=== PATIENT | male | born 1945 | race Caucasian/White ===

== ENCOUNTER 2016-07-14 05:59 | Day surgery (SDC) | payer MEDICARE ==
[2016-07-09 15:28] VITALS: BMI 35.2
[~2016-07-14 05:59] MED LIST: LACTATED RINGERS 1,000 ML IV SCH
[2016-07-14 06:23] VITALS: RESP 16; TEMP 97.9
[2016-07-14] MEDS ORDERED: LIDOCAINE 1% 20 ML VIAL (10MG/ML) FOR IV START INTRADERMA ONE (06:29)
[2016-07-14] MEDS ORDERED: DEXAMETHASONE SOD PHOS (MDV) 100 MG/10 ML VIAL ONE (07:29)
[2016-07-14] MEDS ORDERED: MIDAZOLAM 2 MG/2 ML VIAL ONE (07:29)
[2016-07-14] MEDS ORDERED: fentaNYL (PF) 50 MCG/ML 2 ML AMP ONE (07:29)
[2016-07-14] MEDS ORDERED: IOHEXOL 180 MG/ML 1 ML ML ONE (07:29)
--- NOTE | 2016-07-14 07:49 | P.PCN ---
Date of Procedure: 07/14/16 Procedure(s) Performed: . PROCEDURE 1. Cervical epidural steroid injection under fluoroscopic guidance, C7-T1 2. Cervical epidurogram. PREOPERATIVE DIAGNOSIS: 1- Cervical herniated Disc Diseases 2- Cervical radiculopathy., 3-cervical spondylosis with cervical Facet arthropathy without myelopathy POSTOPERATIVE DIAGNOSIS: : 1- Cervical herniated Disc Diseases , 2- Cervical radiculopathy. 3-,cervical spondylosis with cervical Facet arthropathy without myelopathy ANESTHESIA: Local anesthesia with 1% lidocaine and IV sedation with Versed 2 mg and Fentanyl 50 mcg. EBL 0 PROCEDURE INDICATION: The patient with neck pain and radiculitis unresponsive to conservative treatment consents for procedure. PROCEDURE DESCRIPTION / TECHNIQUE: The patient was seen and identified in the preoperative area. Risks, benefits, complications, including but not limited to infections ,bleeding , allergic reactions to the medications ,and not complete pain releife, and alternatives were discussed with the patient, the patient agreed to proceed with the procedure and signed the consent. Patient was taken to the OR and time out was completed. The patient was placed in the prone position on the procedure table. A pillow was placed under the patients chest to increase the cervical interlaminar space. The cervical area was prepped and draped in the usual sterile fashion. Vital signs were closely monitored during the procedure. Conscious sedation was used during the procedure to decrease patients anxiety. Using anterior-posterior fluoroscopy, the C7-T1 interlaminar space was identified and the skin over this site was marked and then infiltrated with 1% lidocaine subcutaneously. Subsequently, a 20-gauge 3-1/2-inch Tuohy epidural needle was inserted and advanced toward the epidural space by means of the hanging-drop technique and guided by AP and lateral fluoroscopy. The correct needle position in the epidural space was verified with the injection of 2 mL of the water soluble contrast dye Isovue-180 and observing an excellent epidurogram with the epidural spread of the dye, after negative aspiration for blood and CSF and in the absence of paresthesias. Again after negative aspiration, mixture containing 20 mg Dexamethasone and 2 ml of preservative- free normal saline injected and a washout of epidurogram was seen. Needle was withdrawn intact, skin was cleansed, and bandages were applied. Complications= none. Disposition= patient was placed in supine position and transferred to the recovery room area in stable condition and there was no evidence of upper or lower extremity motor or sensory deficit after the procedure patient was discharged from recovery room after discharge criteria met and home discharge instructions was given by the staff and patient will follow with the pain clinic in 2-4 weeks
[2016-07-14 08:07] VITALS: BP 136/82; PULSE 70
[2016-07-14] MEDS ORDERED: IV FLUID CONTINUATION 1,000 ML IV ONE (08:07)
--- NOTE | 2016-07-14 08:15 | FL ---
FL guidance operating History: Cervical Epidural cervical epidural 7 sec fluoro
== END 2016-07-14 08:26 | disposition home or self-care (01) ==
LOC: ORPAIN 05:59
PROVIDERS: ATTEND Specialist
DX: M50.10 Cervical disc disorder with radiculopathy, unspecified cervical region (principal); M47.22 Other spondylosis with radiculopathy, cervical region; M46.92 Unspecified inflammatory spondylopathy, cervical region
CPT/HCPCS: 62321; 99152; J2250; Q9965; J3010; J1100

== ENCOUNTER 2016-08-26 09:20 | Day surgery (SDC) | payer MEDICARE ==
[2016-08-21 16:46] VITALS: BMI 35.2
[2016-08-26 09:33] VITALS: RESP 16; TEMP 97.9
[2016-08-26] MEDS ORDERED: LIDOCAINE 1% 20 ML VIAL (10MG/ML) FOR IV START INTRADERMA ONE (09:37)
[2016-08-26] MEDS ORDERED: IOHEXOL 180 MG/ML 1 ML ML ONE (10:30)
[2016-08-26] MEDS ORDERED: MIDAZOLAM 2 MG/2 ML VIAL ONE (10:30)
[2016-08-26] MEDS ORDERED: DEXAMETHASONE SOD PHOS (MDV) 100 MG/10 ML VIAL ONE (10:30)
--- NOTE | 2016-08-26 11:03 | P.PCN ---
Date of Procedure: 08/26/16 Surgeon: Gary White Pathology: none sent Condition: stable Disposition: PACU Description of Procedure: PREOPERATIVE DIAGNOSIS: Cervical radiculopathy. POSTOPERATIVE DIAGNOSIS: Cervical radiculopathy. PROCEDURE 1. Cervical epidural steroid injection under fluoroscopic guidance, C7-T1 level. 2. Cervical epidurogram. ANESTHESIA: Local anesthesia with 1% lidocaine and IV sedation with versed/ fentanyl. EBL: Minimal PROCEDURE INDICATION: The patient with neck pain and radiculitis unresponsive to conservative treatment consents for procedure #2, with excellent relief of pain in RUE from KAILYN #1. No use of blood thinners. PROCEDURE DESCRIPTION / TECHNIQUE: The patient was seen and identified in the preoperative area. Risks, benefits, complications, and alternatives were discussed with the patient (including but not limited to incomplete pain relief, bleeding, infection, nerve damage, and allergies to medications), the patient agreed to proceed with the procedure and signed the consent after all questions were answered. Patient was taken to the OR and time out was completed to verify proper patient , position, laterality of pain, and allergies. Pt was placed in the prone position. A pillow was placed under the patients chest to increase the cervical interlaminar space. The cervical area was prepped and draped in the usual sterile fashion. Critical pause was taken. Vital signs were closely monitored during the procedure. Conscious sedation was used during the procedure to decrease patients anxiety. Using anterior-posterior fluoroscopy, the C7-T1 interlaminar space was identified and the skin over this site was marked and then infiltrated with 1% lidocaine subcutaneously in a paramedian fashion. Subsequently, a 20-gauge 3-1/2 -inch Tuohy epidural needle was inserted and advanced toward the epidural space by means of the loss of resistance technique and guided by AP and lateral fluoroscopy. After negative aspiration for blood or CSF and in the absence of paresthesias, the correct needle position in the epidural space was verified with the injection of 1 mL of the water soluble contrast dye Omnipaque-180 and observing an excellent epidurogram with the epidural spread of the dye, after negative aspiration for blood and CSF and in the absence of paresthesias. Again after negative aspiration, a 5 ml mixture containing 10 mg of Decadron and 4 ml of preservative free Normal Saline solution was injected and a washout of epidurogram was seen. Needle was withdrawn intact, skin was cleansed, and bandages were applied. COMPLICATIONS: None COMMENTS: DISPOSITION / PLANS: The patient was placed in a supine position and transferred to the recovery area in a stable condition for observation. There was no evidence of upper extremity motor or sensory deficit after the procedure. Patient was discharged from the recovery room after meeting discharge criteria. Home discharge instructions were given to the patient by the staff. The patient was reexamined prior to discharge. The patient will schedule a follow up in the clinic in 2-4 weeks to discuss CMBBs given his complaints of stiffness in his neck and the fact that his right arm pain is mostly resolved.
[2016-08-26] MEDS ORDERED: IV FLUID CONTINUATION 1,000 ML IV ONE ×2 (11:09)
[2016-08-26 11:15] VITALS: BP 123/69; PULSE 71
--- NOTE | 2016-08-26 13:45 | FL ---
Fluoroscopy INDICATION: Pain FINDINGS: Fluoroscopy time: 27 seconds. Images obtained: 2. IMPRESSIONS: 1. Documentation of fluoroscopy.
== END 2016-08-26 11:27 | disposition home or self-care (01) ==
LOC: ORPAIN 09:20
PROVIDERS: ATTEND Anesthesiology
DX: G89.29 Other chronic pain (principal); M54.12 Radiculopathy, cervical region; I10 Essential (primary) hypertension; E78.5 Hyperlipidemia, unspecified; F32.9 Major depressive disorder, single episode, unspecified; Z79.1 Long term (current) use of non-steroidal anti-inflammatories (NSAID); Z79.899 Other long term (current) drug therapy
CPT/HCPCS: 62321; 99152; J2250; Q9965; J1100

== ENCOUNTER → 2016-09-24 | Outpatient (CLI) | payer MEDICARE ==
[2016-09-24 13:22] VITALS: BP 121/68; PULSE 78; RESP 18; TEMP 98.7
--- NOTE | 2016-09-24 13:30 | P.PN ---
Progress Note - Text Patient returns for followup for chronic neck pain with radiation to right arm. Patient continues on naproxen medications for pain with some relief and recently underwent KAILYN x 2 with excellent relief and is no longer complaining of stiffness in his neck. Patient denies adverse drug effects from medications. Today, pt denies new-onset weakness, bowel/bladder incontinence, or any other signs or symptoms of cauda equina syndrome. There are no signs of acute intoxication, and no indications of medication diversion or overuse. In addition to above, 13-point review of systems is also negative for chest pain , shortness of breath, changes in vision, changes in hearing, new onset weakness , abdominal pain, diarrhea, extreme fatigue, malaise, fever, skin changes, homicidal or suicidal ideation, or bowel or bladder incontinence. Vital Signs: Reviewed in EMR Gen: WDWN, AAOx3, NAD HEENT: NCAT, EOMI, hearing grossly normal Pulm: resp unlabored Abd: soft, NT, ND Neck: supple, trachea midline ROM in flexion cervical spine: reduced ROM in extension cervical spine: full, with pain Cervical paravertebral tenderness: + Cervical Facet tenderness: + Spurling's: + RUE only Upper extremity: decreased topstitcher lockstitch strength bilateral UEs, worse RUE Neuro: CN II-XII grossly intact, muscle strength lower extremities PRESERVED Imaging: Reviewed in EMR, C6-C7 with severe right neural foraminal narrowing Assessment: 1. cervical spinal stenosis 2. cervical radiculopathy 3. chronic pain syndrome Plan: 1. Explanation: Opioid and psychological risk scores were reviewed. Diagnoses , prognoses, and multiple treatment options including but not limited to physical therapy, interventional therapies, adjuvant medical therapies, narcotic medication therapies, and surgery were discussed with the patient and all questions were answered to the patient's satisfaction. 2. Opioid agreement: no opioids prescribed 3. Counseling: The patient was counseled extensively on SMOKING CESSATION, BODY MASS INDEX, EXERCISE. Specifically, the patient was instructed regarding the importance of smoking cessation, obesity, and exercise in the context of both chronic pain and overall health. 4. Procedures: none 5. Consultations: None 6. Investigations: None 7. Medications: none prescribed 8. Disposition: I instructed patient that he can call about a month ahead of time and schedule a cervical epidural steroid injection if he feels as though his pain is returning. f/u as needed. PQRS measures: 1-Patient's medications are documented in the chart. 2-Tobacco use is positive, counseling given 3-Patient has had a pneumococcal vaccine. 4-Advanced care planning discussed, patient unable to give. 5-Opioid contract NOT signed with the patient as no opioids prescribed. 6-Pain positive, follow-up visit or procedure scheduled 7-Patient's blood pressure measured and documented, and WNL. 8-Patient's weight was measured, and body mass index ABOVE the normal limits, and counseling was done. Patient instructed to follow up with PCP. 9-Patient WAS NOT identified as an unhealthy alcohol user.
== END | disposition home or self-care (01) ==
LOC: PNWHC3 12:33
PROVIDERS: ATTEND Anesthesiology
DX: M48.02 Spinal stenosis, cervical region (principal); M54.12 Radiculopathy, cervical region; G89.4 Chronic pain syndrome
CPT/HCPCS: 99211

== ENCOUNTER → 2018-11-10 | Outpatient (CLI) | payer MEDICARE, OTHER ==
[2018-11-10 13:49] VITALS: BP 132/94; PULSE 81; RESP 18
--- NOTE | 2018-11-10 14:08 | P.PAINCN ---
History of Present Illness - Reason for Consult Consult date: 11/10/18 - History of Present Illness This is 73 years old male with a history of severe and chronic neck pain, he is diagnosed with cervical degenerative disc disease and cervical spondylosis with cervical facet arthropathy, he was seen in our pain clinic end of 2015, and we have done cervical epidural steroid injections 2 , he reported his pain improved significantly, and he did fairly well until a year ago, and intensity of the pain increased over time, currently is complaining of severe neck pain with radiation to the upper extremity associated with numbness and tingling sensation in the upper extremity bilaterally, he had no motor or sensory deficit he has no fever or night sweats, he has no change in the bowel movement or urination, he started physical therapy and he will continue to do it in the next few weeks Past Medical History Past Medical History: Cancer, Hyperlipidemia, Hypertension, Osteoarthritis (OA) Additional Past Medical History / Comment(s): melanoma, History of Any Multi-Drug Resistant Organisms: None Reported Past Surgical History: Cholecystectomy, Joint Replacement, Orthopedic Surgery Additional Past Surgical History / Comment(s): Bilateral knee replacement, Achilles tendon surgery. mole removed from back with scab, cataract surgery, tumor maligant growth removed on the back Past Anesthesia/Blood Transfusion Reactions: No Reported Reaction Past Psychological History: Depression, PTSD Smoking Status: Former smoker Past Alcohol Use History: Occasional Additional Past Alcohol Use History / Comment(s): Quit smoking APPROX 35 years ago (1981), smoked 1 PPD x 20 yrs. Past Drug Use History: None Reported - Past Family History Father Family Medical History: Blood Disorder, Cancer Additional Family Medical History / Comment(s): skin, colon cancer. Mother Family Medical History: Cancer Additional Family Medical History / Comment(s): Kidney, stomach Medications and Allergies Home Medications Medication Instructions Recorded Confirmed Type Citalopram Hydrobromide [CeleXA] 40 mg PO DAILY 06/23/15 11/10/18 History Cholecalciferol [Vitamin D3] 5,000 unit PO DAILY 08/27/15 11/10/18 History Simvastatin [Zocor] 20 mg PO HS 03/20/17 11/10/18 History Benazepril HCl 1 tab PO DAILY 11/10/18 11/10/18 History amLODIPine [Norvasc] 1 tab PO DAILY 11/10/18 11/10/18 History Allergies Allergy/AdvReac Type Severity Reaction Status Date / Time No Known Allergies Allergy Verified 11/10/18 13:33 Physical Exam Vitals: Vital Signs Pulse Resp BP Pulse Ox 11/10/18 13:40 81 18 132/94 93 L Intake and Output 11/09/18 11/10/18 11/10/18 22:59 06:59 14:59 Other: Weight 117.934 kg Physical Examinations : -Constitutiona : Cooperative , not in acute distress . -HEENT : nech ; supple , no Lymphadenopathy , normal thyroid size . eyes : no ptosis , no icterus, no photophobia . ENT : normal of hearing , normal oropharynx , no Thrush . - Respiratory : Chest clear to auscultations Bilaterally , no wheezing , no Rhonchi . - Cardiovascula : regular rate and rhythem , S1 , S2 , no S3 , no S4. - Gastrointestina : abdomen soft no tenderness , bowel sounds , no organomegally . - Genitourinary : Defferred . - neurologic : Cranial nerve II to XII intact , no focal neurological deffecit . -psychatric : alert , oriented X 3 , appropriate affect , intact judgment and insight . -Lymphatic : no Lymphadenopathy . - musculoskeltal : Cervical Spine motor stregnth in the deltoid and biceps, normal right side , normal Left side motor stregnth biceps and the wrist extensors normal right side ,normal left side . motor stregnth in the triceps muscle . normal Right side , normal Left side deep tendon reflexes normal at the biceps , normal at Brachioradialis , normal at triceps. positive cervical facet loading test . Spurling test positive bilaterally. Neck distraction test positive bilaterally. Sharon sign positive bilaterally. Lumber spine moter stegnth lower extremities ,thigh and legs 5/5 Right side , 5/5 Left side Results Comments: MRI of the cervical spine reviewed Assessment and Plan Plan: Assessment and plan= 1-cervical radiculopathy. 2-cervical degenerative disc disease. 3-cervical spondylosis with cervical facet arthropathy Patient could benefit from cervical epidural steroid injection at C7-T1 , procedure risk and benefits and alternatives discussed with the patient he agreed with proceeding Time with Patient: Greater than 30 PQRS Measure Charge Sheet Measure #130: Documentation of Current Meds in Medical Chart: Patient's medications documented in chart Measure #226: Tobacco Use: Screen & Cessation Intervention: Pt not a tobacco user Measure #111: Pneumonia Vaccination: Pneumococcal vaccine NOT administered or previously given Measure #47: Advance Care Plan: Advance care planning discussed & documented, pt chose/unable to give Measure #412: Opioid Treatment Agreement: No documentation of signed opioid treatment agreement Measure #408: Opioid Therapy Follow-up Evaluation: Patient had NO f/u eval minimum every 3 months during opioid therapy Measure #317: Preventitive Care & Scrn High Bld Press & F/U: Normal blood pressure, f/u not required Measure #128: Body Mass Index (BMI) Screening & Follow-up: BMI documented ABOVE normal parameters - f/u documented Measure #131: Pain Assessment & Follow-up: Pain positive & plan documented, Follow-up scheduled Measure #431: Unhealthy Alcohol Use Preventative Care & Scrn: Patient not identified as an unhealthy alcohol user PQRS Narrative: Smoking Status Former smoker Do You Want the Pneumonia Yes Vaccine AT THIS TIME? Blood Pressure 132/94 Pain Intensity [Bilateral 9 Shoulder] Scale Used Numeric (1 - 10) Hx Alcohol Use (MH) Yes Home Medications: Ambulatory Orders Citalopram Hydrobromide [CeleXA] 40 mg PO DAILY 06/23/15 Cholecalciferol [Vitamin D3] 5,000 unit PO DAILY 08/27/15 Simvastatin [Zocor] 20 mg PO HS 03/20/17 Benazepril HCl 1 tab PO DAILY 11/10/18 amLODIPine [Norvasc] 1 tab PO DAILY 11/10/18
== END ==
LOC: PNWHC3 13:21
PROVIDERS: ATTEND Specialist
DX: G89.29 Other chronic pain (principal); M50.10 Cervical disc disorder with radiculopathy, unspecified cervical region; M47.22 Other spondylosis with radiculopathy, cervical region; M46.96 Unspecified inflammatory spondylopathy, lumbar region; E78.5 Hyperlipidemia, unspecified; I10 Essential (primary) hypertension; Z87.891 Personal history of nicotine dependence; Z79.899 Other long term (current) drug therapy
CPT/HCPCS: 99211

== ENCOUNTER 2018-11-18 07:34 | Day surgery (SDC) | payer OTHER ==
[2018-11-17 09:43] VITALS: BMI 35.2
[2018-11-18 08:41] VITALS: TEMP 97.6
[2018-11-18] MEDS ORDERED: LIDOCAINE 1% 20 ML VIAL (10MG/ML) FOR IV START INTRADERMA ONE (08:45)
--- NOTE | 2018-11-18 09:32 | P.PCN ---
Date of Procedure: 11/18/18 Procedure(s) Performed: . PROCEDURE 1. Cervical epidural steroid injection under fluoroscopic guidance, C7-T1 2. Cervical epidurogram. PREOPERATIVE DIAGNOSIS: 1- Cervical Degenerative Disc Diseases 2- Cervical radiculopathy., 3-cervical spondylosis with cervical Facet arthropathy without myelopathy POSTOPERATIVE DIAGNOSIS: : 1- Cervical Degenerative Disc Diseases , 2- Cervical radiculopathy. 3-,cervical spondylosis with cervical Facet arthropathy without myelopathy ANESTHESIA: moderate sedation, with Versed 2 mg and Fentanyl 50 mcg. EBL 0 PROCEDURE INDICATION: The patient with neck pain and radiculitis unresponsive to conservative treatment consents for procedure. PROCEDURE DESCRIPTION / TECHNIQUE: The patient was seen and identified in the preoperative area. Risks, benefits, complications, including but not limited to infections ,bleeding , allergic reactions to the medications ,and not complete pain releife, and alternatives were discussed with the patient, the patient agreed to proceed with the procedure and signed the consent. Patient was taken to the OR and time out was completed. The patient was placed in the prone position on the procedure table. A pillow was placed under the patients chest to increase the cervical interlaminar space. The cervical area was prepped and draped in the usual sterile fashion. Vital signs were closely monitored during the procedure. Conscious sedation was used during the procedure to decrease patients anxiety. Using anterior-posterior fluoroscopy, the C7-T1 interlaminar space was identified and the skin over this site was marked and then infiltrated with 1% lidocaine subcutaneously. Subsequently, a 20-gauge 3-1/2-inch Tuohy epidural needle was inserted and advanced toward the epidural space by means of the ``hanging-drop technique and guided by AP and lateral fluoroscopy. The correct needle position in the epidural space was verified with the injection of 2 mL of the water soluble contrast dye Isovue-200 and observing an excellent epidurogram with the epidural spread of the dye, after negative aspiration for blood and CSF and in the absence of paresthesias. Again after negative aspiration, mixture containing 20 mg Dexamethasone and 2 ml of preservative- free normal saline injected and a washout of epidurogram was seen. Needle was withdrawn intact, skin was cleansed, and bandages were applied. Complications= none. Disposition= patient was placed in supine position and transferred to the recovery room area in stable condition and there was no evidence of upper or lower extremity motor or sensory deficit after the procedure patient was discharged from recovery room after discharge criteria met and home discharge instructions was given by the staff and patient will follow with the pain clinic in 2-4 weeks
[2018-11-18] MEDS ORDERED: IV FLUID CONTINUATION 1,000 ML IV ONE (09:37)
[2018-11-18 09:45] VITALS: RESP 18
--- NOTE | 2018-11-18 09:57 | FL ---
EXAMINATION TYPE: FL guided pain mgmt statistic DATE OF EXAM: 11/18/2018 CLINICAL HISTORY: Neck pain. TECHNIQUE: Fluoroscopy. COMPARISON: None. FINDINGS: Fluoroscopic guidance was provided during pain relief procedure performed by Dr. Greco . A total of 1 seconds of fluoroscopic time was utilized during the procedure and 1 spot images are acquired. Images acquired shows needle localization of the cervical spine. IMPRESSION: As Above.
[2018-11-18 10:23] VITALS: BP 145/84; PULSE 73
== END 2018-11-18 10:33 | disposition home or self-care (01) ==
LOC: ORPAIN 07:34
PROVIDERS: ATTEND Specialist
DX: M50.10 Cervical disc disorder with radiculopathy, unspecified cervical region (principal); M47.22 Other spondylosis with radiculopathy, cervical region
CPT/HCPCS: 62321; J2250; J1100; J3010; Q9966

== ENCOUNTER 2018-12-02 07:13 | Day surgery (SDC) | payer OTHER ==
[2018-11-29 14:19] VITALS: BMI 33.9
[2018-12-02 07:32] VITALS: RESP 18; TEMP 98.6
--- NOTE | 2018-12-02 08:43 | P.PCN ---
Date of Procedure: 12/02/18 Procedure(s) Performed: PROCEDURE 1. Cervical epidural steroid injection under fluoroscopic guidance, C7-T1 2. Cervical epidurogram. PREOPERATIVE DIAGNOSIS: 1- Cervical Degenerative Disc Diseases 2- Cervical radiculopathy., 3-cervical spondylosis with cervical Facet arthropathy without myelopathy POSTOPERATIVE DIAGNOSIS: : 1- Cervical Degenerative Disc Diseases , 2- Cervical radiculopathy. 3-,cervical spondylosis with cervical Facet arthropathy without myelopathy ANESTHESIA: moderate sedation, with Versed 2 mg and Fentanyl 50 mcg. EBL 0 PROCEDURE INDICATION: The patient with neck pain and radiculitis unresponsive to conservative treatment consents for procedure. PROCEDURE DESCRIPTION / TECHNIQUE: The patient was seen and identified in the preoperative area. Risks, benefits, complications, including but not limited to infections ,bleeding , allergic reactions to the medications ,and not complete pain releife, and alternatives were discussed with the patient, the patient agreed to proceed with the procedure and signed the consent. Patient was taken to the OR and time out was completed. The patient was placed in the prone position on the procedure table. A pillow was placed under the patients chest to increase the cervical interlaminar space. The cervical area was prepped and draped in the usual sterile fashion. Vital signs were closely monitored during the procedure. Conscious sedation was used during the procedure to decrease patients anxiety. Using anterior-posterior fluoroscopy, the C7-T1 interlaminar space was identified and the skin over this site was marked and then infiltrated with 1% lidocaine subcutaneously. Subsequently, a 20-gauge 3-1/2-inch Tuohy epidural needle was inserted and advanced toward the epidural space by means of the ``hanging-drop technique and guided by AP and lateral fluoroscopy. The correct needle position in the epidural space was verified with the injection of 2 mL of the water soluble contrast dye Isovue-200 and observing an excellent epidurogram with the epidural spread of the dye, after negative aspiration for blood and CSF and in the absence of paresthesias. Again after negative aspiration, mixture containing 20 mg Dexamethasone and 2 ml of preservative- free normal saline injected and a washout of epidurogram was seen. Needle was withdrawn intact, skin was cleansed, and bandages were applied. Complications= none. Disposition= patient was placed in supine position and transferred to the recovery room area in stable condition and there was no evidence of upper or lower extremity motor or sensory deficit after the procedure patient was discharged from recovery room after discharge criteria met and home discharge instructions was given by the staff and patient will follow with the pain clinic in 2-4 weeks
[2018-12-02] MEDS ORDERED: IV FLUID CONTINUATION 800 ML IV ONE (08:53)
--- NOTE | 2018-12-02 08:54 | FL ---
EXAMINATION TYPE: FL guided pain mgmt statistic DATE OF EXAM: 12/02/2018 CLINICAL HISTORY: Low back pain. TECHNIQUE: Fluoroscopy. COMPARISON: None. FINDINGS: Fluoroscopic guidance was provided during pain relief procedure performed by Dr. Greco . A total of 1 second of fluoroscopic time was utilized during the procedure and single spot fluoros copic image is acquired. Single image acquired shows needle localization near cervicothoracic juncti on. IMPRESSION: As Above.
[2018-12-02 09:15] VITALS: BP 129/76; PULSE 78
== END 2018-12-02 09:20 | disposition home or self-care (01) ==
LOC: ORPAIN 07:13
PROVIDERS: ATTEND Specialist
DX: M47.22 Other spondylosis with radiculopathy, cervical region (principal); M50.10 Cervical disc disorder with radiculopathy, unspecified cervical region
CPT/HCPCS: 62321; J2250; J1100; J3010; Q9966

== ENCOUNTER → 2018-12-16 | Outpatient (CLI) | payer OTHER ==
[2018-12-16 11:29] VITALS: BP 143/77; PULSE 80; RESP 16
--- NOTE | 2018-12-16 14:51 | P.PAINPG ---
Subjective Progress Note Date: 12/16/18 And this is a follow-up visit for this since 3 years old male with a chronic history of severe neck pain, history closed with cervical degenerative disc disease and cervical spondylosis with cervical facet arthropathy, recently we have done cervical epidural steroid injections 2 patient reported he had no benefit from it, he continued to have severe neck pain, she is increased with any neck movement, he denies any numbness or tingling sensation he denies any weakness in the upper or lower extremities, he denies any fever or night sweats, and no change in the bowel movements or urination Objective - Vital Signs Vital signs: Vital Signs Temp Pulse 80 12/16/18 11:18 Resp 16 12/16/18 11:18 BP 143/77 12/16/18 11:18 Pulse Ox Intake & Output 12/15/18 12/16/18 12/16/18 18:59 06:59 18:59 Weight 120.202 kg - Exam Physical Examinations : -Constitutiona : Cooperative , not in acute distress . -HEENT : nech ; supple , no Lymphadenopathy , normal thyroid size . eyes : no ptosis , no icterus, no photophobia . ENT : normal of hearing , normal oropharynx , no Thrush . - Respiratory : Chest clear to auscultations Bilaterally , no wheezing , no Rhonchi . - Cardiovascula : regular rate and rhythem , S1 , S2 , no S3 , no S4. - Gastrointestina : abdomen soft no tenderness , bowel sounds , no organomegally . - Genitourinary : Defferred . - neurologic : Cranial nerve II to XII intact , no focal neurological deffecit . -psychatric : alert , oriented X 3 , appropriate affect , intact judgment and insight . -Lymphatic : no Lymphadenopathy . - musculoskeltal : Cervical Spine motor stregnth in the deltoid and biceps, normal right side , normal Left side motor stregnth biceps and the wrist e xtensors normal right side ,normal left side . motor stregnth in the triceps muscle . normal Right side , normal Left side deep tendon reflexes normal at the biceps , normal at Brachioradialis , normal at triceps. positive cervical facet loading test . Spurling test positive bilaterally. Neck distraction test positive bilaterally. Sharon sign positive bilaterally. Lumber spine moter stegnth lower extremities ,thigh and legs 5/5 Right side , 5/5 Left side Assessment and Plan Plan: Assessment and plan= cervical spondylosis and cervical facet arthropathy without myelopathy. Cervical degenerative disc disease. Patient had no benefit from cervical epidural steroid injections 2, he would be good candidate for diagnostic medial branch block cervical area C3 4, C4 5, C5-C6 and possible RFA if it is positive Time with Patient: Less than 30 PQRS Measure Charge Sheet Measure #130: Documentation of Current Meds in Medical Chart: Patient's medications documented in chart Measure #226: Tobacco Use: Screen & Cessation Intervention: Pt not a tobacco user Measure #111: Pneumonia Vaccination: Pneumococcal vaccine administered or previously received Measure #47: Advance Care Plan: Advance care planning discussed & documented, pt chose/unable to give Measure #412: Opioid Treatment Agreement: No documentation of signed opioid treatment agreement Measure #408: Opioid Therapy Follow-up Evaluation: Patient had NO f/u eval minimum every 3 months during opioid therapy Measure #317: Preventitive Care & Scrn High Bld Press & F/U: Pre-hypertensive or hypertensive BP documented, pt will f/u with PCP Measure #128: Body Mass Index (BMI) Screening & Follow-up: BMI documented ABOVE normal parameters - f/u documented Measure #131: Pain Assessment & Follow-up: Pain positive & plan documented, Follow-up scheduled Measure #431: Unhealthy Alcohol Use Preventative Care & Scrn: Patient not identified as an unhealthy alcohol user PQRS Narrative: Smoking Status Former smoker Blood Pressure 143/77 Pain Intensity [Bilateral 3 Posterior Neck] Scale Used Numeric (1 - 10) Hx Alcohol Use (MH) Yes Home Medications: Ambulatory Orders Citalopram Hydrobromide [CeleXA] 40 mg PO DAILY 06/23/15 Cholecalciferol [Vitamin D3] 2,000 unit PO DAILY 08/27/15 Simvastatin [Zocor] 20 mg PO HS 03/20/17 Benazepril HCl 10 mg PO DAILY 11/10/18 amLODIPine [Norvasc] 2.5 mg PO DAILY 11/10/18 Naproxen Sodium [Aleve] 440 mg PO BID 12/16/18 Naproxen [Naprosyn] 500 mg PO TID 12/16/18 Controlled Substance Measures - Controlled Substance Measures Is patient prescribed a controlled substance at discharge?: No
== END | disposition home or self-care (01) ==
LOC: PNWHC3 10:47
PROVIDERS: ATTEND Specialist
DX: M47.812 Spondylosis without myelopathy or radiculopathy, cervical region (principal); M50.30 Other cervical disc degeneration, unspecified cervical region
CPT/HCPCS: 99211

== ENCOUNTER 2018-12-29 08:53 | Day surgery (SDC) | payer OTHER ==
[2018-12-27 16:17] VITALS: BMI 34.8
[2018-12-29] MEDS ORDERED: LACTATED RINGERS 1,000 ML IV SCH (09:21)
[2018-12-29 10:00] VITALS: RESP 16; TEMP 98.7
[2018-12-29] MEDS ORDERED: LIDOCAINE 1% 20 ML VIAL (10MG/ML) FOR IV START INTRADERMA ONE (10:02)
[2018-12-29] MEDS ORDERED: IV FLUID CONTINUATION 1,000 ML IV ONE ×2 (11:03)
--- NOTE | 2018-12-29 11:05 | P.PCN ---
Date of Procedure: 12/29/18 Procedure(s) Performed: PREOPERATIVE DIAGNOSIS: Cervical Spondylosis with Facet Arthropathy.without myelopathy POSTOPERATIVE DIAGNOSIS: Cervical Spondylosis Facet Arthropathy. Without myelopathy PROCEDURES: Diagnostic bilateral C3, C4, C5 medial branch blocks, with fluoroscopic guidance ANESTHESIA: Local with 1% lidocaine; IV sedation with Versed. EBL: Minimal PROCEDURE INDICATION: The patient with neck pain secondary to cervical arthropathy unresponsive to more conservative treatments. PROCEDURE DESCRIPTION / TECHNIQUE: The patient was seen and identified in the preoperative area. Risks, benefits, complications, and alternatives were discussed with the patient, the patient agreed to proceed with the procedure and signed the consent. IV was started. Vital signs remained stable throughout the procedure. Patient was taken to the OR and time out was completed. The patient was placed in the prone position on the procedure table. A pillow was placed under the patients chest to increase the cervical interlaminar space. The cervical area was prepped and draped in the usual sterile fashion. Critical pause was taken. Vital signs were closely monitored during the procedure. Conscious sedation was used during the procedure to decrease patients anxiety. Using AP fluoroscopy, the vertebral bodies of C3, C4, and C5 were identified and a 25-gauge 3-1/2 inch Quincke needle was advanced to the waist of the articular pillars, after localizing the skin with 1% lidocaine 0.2 mL per level. Then using cross-table lateral fluoroscopy, the centroid of the vertebral body of the above-mentioned levels was identified, and the needle was advanced guided by fluoroscopy to the centroid of the vertebral body. [place] tip position was confirmed on lateral and anteroposterior fluoroscopy. Subsequently, 0.2 mL of Isovue 200 was injected at each level without evidence of vascular uptake. Then 0.5 mL of 0.5% ropivacaine was injected at each level. COMPLICATIONS: No acute complications. COMMENTS: Lateral fluoroscopy for C5 level was difficult due to body habitus, was open pain and by pulling arms towards feet. DISPOSITION / PLANS: The patient was placed in a supine position and transferred to the recovery area in a stable condition for observation and was discharged from the recovery room after meeting discharge criteria. Home discharge instructions given to the patient by the staff. He will follow-up for repeat procedure in 1-2 weeks.
[2018-12-29 11:18] VITALS: BP 128/76; PULSE 76
--- NOTE | 2018-12-29 11:27 | FL ---
EXAMINATION TYPE: FL guided pain mgmt statistic DATE OF EXAM: 12/29/2018 CLINICAL HISTORY: Neck pain. TECHNIQUE: Fluoroscopy. COMPARISON: None. FINDINGS: Fluoroscopic guidance was provided during pain relief procedure performed by Dr. Dewitt. A t otal of 49 seconds of fluoroscopic time was utilized during the procedure and 10 spot images are acqu ired. Images acquired shows needle localization at multiple levels in the cervical spine bilaterally . IMPRESSION: As Above.
== END 2018-12-29 11:32 | disposition home or self-care (01) ==
LOC: ORPAIN 08:53
PROVIDERS: ATTEND Anesthesiology
DX: G89.29 Other chronic pain (principal); M47.812 Spondylosis without myelopathy or radiculopathy, cervical region
CPT/HCPCS: 64490; 64491; 64492; J2250; Q9966; 99152; 99153

== ENCOUNTER 2019-01-12 08:31 | Day surgery (SDC) | payer OTHER ==
[2019-01-07 15:45] VITALS: BMI 36.2
[2019-01-12 09:15] VITALS: TEMP 97.4
[2019-01-12] MEDS ORDERED: LIDOCAINE 1% 20 ML VIAL (10MG/ML) FOR IV START INTRADERMA ONE (09:17)
--- NOTE | 2019-01-12 10:28 | P.PCN ---
Date of Procedure: 01/12/19 Surgeon: Kayce Moody Pathology: none sent Condition: stable Disposition: PACU Description of Procedure: PREOPERATIVE DIAGNOSIS: Cervical Spondylosis with Facet Arthropathy,without myelopathy POSTOPERATIVE DIAGNOSIS: Cervical Spondylosis Facet Arthropathy, Without myelopathy PROCEDURES: Diagnostic Bilateral. C3,4,5 medial branchs block with fluoroscopic guidance ANESTHESIA: Local with 1% lidocaine; IV sedation with Versed. EBL: Minimal PROCEDURE INDICATION: The patient with neck pain secondary to cervical arthropathy unresponsive to more conservative treatments. PROCEDURE DESCRIPTION / TECHNIQUE: The patient was seen and identified in the preoperative area. Risks, benefits, complications, and alternatives were discussed with the patient, the patient agreed to proceed with the procedure and signed the consent. IV was started. Vital signs remained stable throughout the procedure. Patient was taken to the OR and time out was completed. The patient was placed in the supine position on the procedure table. . The cervical area was prepped with chloraprep and draped in the usual sterile fashion. Critical pause was taken. Vital signs were closely monitored during the procedure. Conscious sedation was used during the procedure to decrease patients anxiety. Using cross-table lateral fluoroscopy, the center of the trapezoid of C3,4, and 5 was identified, marked, and localized with 1% lidocaine 1 ml at each level for skin and Sub Q infiltrations . Subsequently, a 25 G 3.5 inch spinal needle was advanced guided by fluoroscopy to the centroid of the trapezoid of C3,4 and 5 . Subsequently, 3 ml of preservative-free Bupivacaine 0.5% mixed with Dexamethasone 10 mg and half ml of the mixture was injected at each level after negative aspiration for blood and CSF. [place] were then removed intact the same procedure was repeated on the left side. COMPLICATIONS: No acute complications. COMMENTS: DISPOSITION / PLANS: The patient was placed in a supine position and transferred to the recovery area in a stable condition for observation and was discharged from the recovery room after meeting discharge criteria. Home discharge instructions given to the patient by the staff. The patient was reexamined prior to discharge. The patient will schedule a follow up in the clinic in 2-4 weeks.
[2019-01-12 10:40] VITALS: RESP 18
[2019-01-12] MEDS ORDERED: IV FLUID CONTINUATION 400 ML IV ONE (10:41)
--- NOTE | 2019-01-12 10:45 | FL ---
EXAMINATION TYPE: FL guided pain mgmt statistic DATE OF EXAM: 01/12/2019 HISTORY: Pain bilateral cervical facet blocks. [address] Moody. 3 pictures scanned
[2019-01-12 10:50] VITALS: BP 130/83; PULSE 77
== END 2019-01-12 11:05 | disposition home or self-care (01) ==
LOC: ORPAIN 08:31
PROVIDERS: ATTEND Anesthesiology
DX: M47.812 Spondylosis without myelopathy or radiculopathy, cervical region (principal)
CPT/HCPCS: 99152; 99153

== ENCOUNTER → 2019-01-25 | Outpatient (CLI) | payer OTHER ==
[2019-01-25 13:12] VITALS: BP 173/88; PULSE 87; RESP 16
--- NOTE | 2019-01-25 16:09 | P.PAINPG ---
Subjective Progress Note Date: 01/25/19 Mr. Flores is a 73-year-old male with cervical spondylosis without myelopathy was previously underwent 2 epidural steroid injections without any benefit returns to clinic today after 2 rounds of medial branch blocks which have given him excellent relief is interested in a radiofrequency ablation. He does appear to have some cervical mediated referred pain. Otherwise he does not have any changes in his medical history Objective - Vital Signs Vital signs: Vital Signs Temp Pulse 87 01/25/19 13:07 Resp 16 01/25/19 13:07 BP 173/88 01/25/19 13:07 Pulse Ox 96 01/25/19 13:07 Intake & Output 01/24/19 01/25/19 01/25/19 18:59 06:59 18:59 Weight 120.202 kg - Exam Gen: WDWN, AAOx3, NAD HEENT: NCAT, EOMI, hearing grossly normal Pulm: resp unlabored Abd: soft, NT, ND Neck: supple, trachea midline ROM in flexion cervical spine: Normal ROM in extension cervical spine: decreased by 10 degrees Cervical paravertebral tenderness: positive with deep pressure Cervical Facet tenderness: Positive Spurling's: Negative Neuro: muscle strength lower extremities Assessment and Plan Assessment: Assessment and plan: 1. Cervical spondolysis without radiculopathy 2. DDD 1. Interventions and will schedule for cervical radiofrequency ablation to more more painful side being ablated first 2. He is taking naproxen for pain relief. 2. Follow up. For his cervical RFA at C4 C5 C6 PQRS Measure Charge Sheet Measure #226: Tobacco Use: Screen & Cessation Intervention: Pt not a tobacco user Measure #111: Pneumonia Vaccination: Pneumococcal vaccine administered or previously received Measure #47: Advance Care Plan: Advance care planning discussed & documented, pt chose/unable to give Measure #128: Body Mass Index (BMI) Screening & Follow-up: BMI documented within normal parameters Measure #131: Pain Assessment & Follow-up: Pain positive & plan documented, Follow-up scheduled Measure #431: Unhealthy Alcohol Use Preventative Care & Scrn: Patient not identified as an unhealthy alcohol user PQRS Narrative: Smoking Status Former smoker Blood Pressure 173/88 Pain Intensity [Bilateral 4 Lower Neck] Scale Used Numeric (1 - 10) Hx Alcohol Use (MH) Yes Home Medications: Ambulatory Orders Citalopram Hydrobromide [CeleXA] 40 mg PO DAILY 06/23/15 Cholecalciferol [Vitamin D3] 2,000 unit PO DAILY 08/27/15 Simvastatin [Zocor] 20 mg PO HS 03/20/17 Benazepril HCl 10 mg PO DAILY 11/10/18 amLODIPine [Norvasc] 2.5 mg PO DAILY 11/10/18 Naproxen [Naprosyn] 500 mg PO TID 12/16/18 Controlled Substance Measures - Controlled Substance Measures Is patient prescribed a controlled substance at discharge?: No
== END ==
LOC: PNWHC3 12:17
PROVIDERS: ATTEND Student in an Organized Health Care Education/Training Program
DX: M50.30 Other cervical disc degeneration, unspecified cervical region (principal); M47.812 Spondylosis without myelopathy or radiculopathy, cervical region; Z79.899 Other long term (current) drug therapy; Z87.891 Personal history of nicotine dependence
CPT/HCPCS: 99211

== ENCOUNTER 2019-02-01 06:49 | Day surgery (SDC) | payer OTHER ==
[2019-01-26 16:51] VITALS: BMI 36.5
[2019-02-01 07:16] VITALS: TEMP 97.6
--- NOTE | 2019-02-01 08:42 | P.PCN ---
Date of Procedure: 02/01/19 Procedure(s) Performed: PREOPERATIVE DIAGNOSIS: Cervical spondylosis with Facet Arthropathy without myelopathy. POSTOPERATIVE DIAGNOSIS: Cervical spondylosis with Facet Arthropathy without myelopathy. PROCEDURES: Radiofrequency thermocoagulation Left C3, C4, C5 medial branch with Fluroscopy [place] (fluoroscopy was available in etiology department ) ( 3 Leveles ) ANESTHESIA: Local with Ropivacaine 0.5 % , moderate sedation with fentanyl 100 micrograms and Versed. 2 mg EBL: Minimal PROCEDURE INDICATION: The patient with neck pain secondary to cervical arthropathy who had more than 50% relief of her pain with previous diagnostic cervical medial branch block. PROCEDURE DESCRIPTION / TECHNIQUE: The patient was seen and identified in the preoperative area. Risks, benefits, complications, and alternatives were discussed with the patient, the patient agreed to proceed with the procedure and signed the consent. IV was started. Vital signs remained stable throughout the procedure. Patient was taken to the OR and time out was completed. The patient was placed in the prone position on the procedure table. A pillow was placed under the patients chest to increase the cervical interlaminar space. The cervical area was prepped and draped in the usual sterile fashion. Critical pause was taken. Vital signs were closely monitored during the procedure. Conscious sedation was used during the procedure to decrease patients anxiety. Using cross-table lateral fluoroscopy, the centroid of the trapezoid of left C3, C4, C5, were identified, marked, and localized with 1% lidocaine. Subsequently, a 20 -rw radiofrequency cannula with a 10-mm active tip was advanced guided by fluoroscopy to the centroid of the trapezoid of the left C3, C4, C5, . Needle tip position was confirmed at the centroid of the trapezoids of the left C3, C4, C5, with anteroposterior fluoroscopy. Each site then underwent sensory testing at 50 Hz and 0 to 1 volt and motor testing at 2 Hz and 0 to 3 volt with local stimulation, but no radicular symptoms down the arm. Thereafter C3, C4,C5 sites underwent radiofrequency thermocoagulation at 80 degrees celsius for 90 seconds after injecting 0.5 ml of PF Ropivacaine 0.5 %. After thermocoagulation, 1 ml of the block solution containing Depo-Medrol 40 mg and 5 mL of preservative-free normal saline was injected at the left C3, C4, C5, levels after negative aspiration of CSF and blood and with no paresthesias. Cannulas were retracted while injecting lidocaine 1% until the needle is out. Skin was cleansed and bandages were applied. COMPLICATIONS: No acute complications. DISPOSITION / PLANS: The patient was placed in a supine position and transferred to the recovery area in a stable condition for observation and was discharged from the recovery room after meeting discharge criteria. Home discharge instructions given to the patient by the staff. The patient was reexamined prior to discharge. The patient will schedule a follow up in the clinic in 2-4 weeks.
[2019-02-01] MEDS ORDERED: IV FLUID CONTINUATION 1,000 ML IV ONE (08:46)
[2019-02-01 08:50] VITALS: RESP 16
--- NOTE | 2019-02-01 08:51 | FL ---
Fluoroscopy HISTORY: Pain 16 seconds fluoroscopy time supplied to the referring clinician. 3 intraoperative C-arm images docum ent the procedure. See dictated report from anesthesia.
[2019-02-01 09:05] VITALS: BP 116/68; PULSE 74
== END 2019-02-01 09:16 | disposition home or self-care (01) ==
LOC: ORPAIN 06:49
PROVIDERS: ATTEND Specialist
DX: M47.812 Spondylosis without myelopathy or radiculopathy, cervical region (principal)
CPT/HCPCS: 64633; 64634; J2250; J1030; J3010; 99152; 99153

== ENCOUNTER 2019-02-15 07:39 | Day surgery (SDC) | payer OTHER ==
[2019-02-10 10:09] VITALS: BMI 36.2
[2019-02-15 07:57] VITALS: RESP 16; TEMP 97.1
[2019-02-15] MEDS ORDERED: LIDOCAINE 1% 20 ML VIAL (10MG/ML) FOR IV START INTRADERMA ONE (08:02)
--- NOTE | 2019-02-15 09:35 | P.PCN ---
Date of Procedure: 02/15/19 Procedure(s) Performed: PREOPERATIVE DIAGNOSIS: Cervical spondylosis POSTOPERATIVE DIAGNOSIS: Same PROCEDURES: Cervical right C3 C4 C5 Radiofrequency thermocoagulation, with fluoroscopic guidance SURGEON: Colleen Elizabeth MD. ANESTHESIA: Moderate sedation with intravenous versed 2 mg and fentanyl 50 mcg and local infiltration with lidocaine 1% 4 ml EBL: Minimal PROCEDURE INDICATION: Chronic neck pain PROCEDURE DESCRIPTION / TECHNIQUE: The patient was seen and identified in the preoperative area. Risks, benefits, complications, including but not limited to risk of infection ,bleeding , allergic reactions to the medications, incomplete pain relief, nerve damage and headache Alternatives were discussed with the patient, the patient agreed to proceed with the procedure and signed the consent. IV was started. The operative site was marked. Patient was taken to the OR and time out was completed. The patient was placed in the prone position on the procedure table. The lumber area was prepped and draped in the usual sterile fashion. . Vital signs were closely monitored during the procedure .IV sedation was used during the procedure to decrease patients anxiety. Using AP and then oblique fluoroscopy, the articular waist of the corresponding cervical vertebral bodies for the above-mentioned levels were identified, marked, and localized with 1% lidocaine. Subsequently, a 18 [id number] radiofrequency cannula with a 10-mm active tip was advanced guided by fluoroscopy to the midpoint of the trapezoid formed flipping between AP and lateral views. at each site then underwent sensory testing at 50 Hz and 0 to 1 volt and motor testing at 2.5 Hz and 0 to 3 volt with local stimulation, but no radicular symptoms down the legs. Then the sites underwent radiofrequency thermocoagulation at 80 degrees celsius for 90 seconds after injecting 1 ml of PF lidocaine 1%. Cannulas were retracted while injecting lidocaine 1% until the needle is out.. At the end of the procedure, the skin was cleansed and bandages were applied. COMPLICATIONS: No acute complications. COMMENTS: The patient did have high riding shoulders, thus a contralateral oblique view was used for C4 and C5 placement.. DISPOSITION / PLANS: The patient was placed in a supine position and transferr ed to the recovery area in a stable condition for observation and was discharged from the recovery room after meeting discharge criteria. Home discharge instructions given to the patient by the staff.
--- NOTE | 2019-02-15 09:41 | FL ---
EXAMINATION TYPE: FL guided pain mgmt statistic DATE OF EXAM: 02/15/2019 CLINICAL HISTORY: Neck pain. TECHNIQUE: Fluoroscopy. COMPARISON: None. FINDINGS: Fluoroscopic guidance was provided during pain relief procedure performed by Dr. Elizabeth . A total of 29 seconds of fluoroscopic time was utilized during the procedure and four spot images a re acquired. Images acquired shows needle localization at multiple levels in the cervical spine. IMPRESSION: As Above.
[2019-02-15 09:54] VITALS: BP 133/81; PULSE 76
== END 2019-02-15 10:11 | disposition home or self-care (01) ==
LOC: ORPAIN 07:39
PROVIDERS: ATTEND Student in an Organized Health Care Education/Training Program
DX: M47.812 Spondylosis without myelopathy or radiculopathy, cervical region (principal)
CPT/HCPCS: 64633; 64634; J2250; J3010; 99152; 99153

== ENCOUNTER → 2019-03-15 | Outpatient (CLI) | payer OTHER ==
[2019-03-15 13:02] VITALS: BP 168/76; PULSE 86; RESP 16
--- NOTE | 2019-03-15 14:33 | P.PAINPG ---
Subjective Progress Note Date: 03/15/19 This is a 73-year-old male with cervical axial pain who presents from follow-up for his left cervical RFA followed by his right cervical RFA. He states that after the right cervical RFA he was noted for about a week and then did report some increased pain for about 2 weeks, now 4 weeks later his pain is almost essentially resolved. He is happy with his RFA results, he states that he essentially has no pain at rest, and his pain goes up 1 or slightly higher with movement. He was concerned about the increasing pain on the right side, however this pain has greatly improved. Otherwise he has no complaints Objective - Vital Signs Vital signs: Vital Signs Temp Pulse 86 03/15/19 12:56 Resp 16 03/15/19 12:56 BP 168/76 03/15/19 12:56 Pulse Ox 93 L 03/15/19 12:56 Intake & Output 03/14/19 03/15/19 03/15/19 18:59 06:59 18:59 Weight 122.47 kg - Exam Vital Signs: Reviewed in EMR GENERAL: Well appearing, in no acute distress, PSYCH: Mood and affect is appropriate. Awake, alert, and oriented SKIN: Skin color, texture, turgor normal, no rashes or lesions HEENT: Normocephalic, atraumatic. EOM intact CV: No pedal edema RESP: Respirations are unlabored, no audible wheezing GI: Abdomen non-distended MUSCULOSKELETAL: Bilateral upper and lower extremity strength is normal and symmetric. No atrophy or tone abnormalities are noted. Neck: Some tenderness to palpation in the cervical paraspinals Gait: Gait is anantalgic NEUR: No loss of sensation is noted. Cranial nerves are grossly intact. Assessment and Plan Assessment: Assessment: 1. Cervical spondylosis without myelopathy 2. Posterior RFA neuritis, resolving Plan: 1. Explanation: Spoke to him about the time course of posterior RFA neuritis, usually this neuritis last for no more than 6 weeks. 2. Opioid agreement: None 3. Counseling: The patient was counseled extensively on BODY MASS INDEX, EXERCISE. Specifically, the patient was instructed regarding the importance of weight control, and exercise in the context of both chronic pain and overall health. 4. Procedures: At this time he is very happy with his result, he will call in for a repeat cervical RFA 5. Consultations: None 6. Investigations: MRI reviewed 7. Medications: None 8. Disposition: When necessary, he will return to clinic when his neck pain returned , PQRS Measure Charge Sheet Measure #226: Tobacco Use: Screen & Cessation Intervention: Pt not a tobacco user Measure #111: Pneumonia Vaccination: Pneumococcal vaccine administered or previously received Measure #47: Advance Care Plan: Advance care planning discussed & documented, pt chose/unable to give Measure #131: Pain Assessment & Follow-up: Pain positive & plan documented, Follow-up scheduled, Follow-up PRN Measure #431: Unhealthy Alcohol Use Preventative Care & Scrn: Patient not identified as an unhealthy alcohol user PQRS Narrative: Smoking Status Former smoker Blood Pressure 168/76 Pain Intensity [Right Neck] 1 Scale Used Numeric (1 - 10) Hx Alcohol Use (MH) Yes Home Medications: Ambulatory Orders Citalopram Hydrobromide [CeleXA] 40 mg PO DAILY 06/23/15 Cholecalciferol [Vitamin D3] 2,000 unit PO DAILY 08/27/15 Simvastatin [Zocor] 20 mg PO HS 03/20/17 Benazepril HCl 10 mg PO DAILY 11/10/18 amLODIPine [Norvasc] 2.5 mg PO DAILY 11/10/18 Naproxen [Naprosyn] 500 mg PO TID PRN 12/16/18 Controlled Substance Measures - Controlled Substance Measures Is patient prescribed a controlled substance at discharge?: No
== END | disposition home or self-care (01) ==
LOC: PNWHC3 12:32
PROVIDERS: ATTEND Student in an Organized Health Care Education/Training Program
DX: M47.812 Spondylosis without myelopathy or radiculopathy, cervical region (principal); Z87.891 Personal history of nicotine dependence; Z98.890 Other specified postprocedural states; Z79.1 Long term (current) use of non-steroidal anti-inflammatories (NSAID)
CPT/HCPCS: 99211

== ENCOUNTER → 2019-06-17 | Outpatient (CLI) | payer MEDICARE ==
--- NOTE | 2019-06-17 10:10 | CT ---
EXAMINATION TYPE: CT chest w con DATE OF EXAM: 06/17/2019 COMPARISON: None HISTORY: Pleural scarring CT DLP: 771 mGycm Automated exposure control for dose reduction was used. CONTRAST: CT scan of the chest is performed with IV Contrast, patient injected with 100 ml mL of Isovue 300. FINDINGS: LUNGS: Right basilar pleural-parenchymal scarring. The lungs are grossly clear, there is no concernin g parenchymal mass or nodule identified. There is no pleural effusion or pneumothorax seen. The tr acheobronchial tree is patent. MEDIASTINUM: There are no greater than 1 cm hilar or mediastinal lymph nodes. No pericardial effusi on is seen. Thoracic aorta is of normal caliber. The heart is not enlarged. UPPER ABDOMEN: No significant abnormality appreciated. OTHER: No additional significant abnormality is seen. IMPRESSION: Right basilar pleural-parenchymal scarring. Otherwise unremarkable study.
== END | disposition home or self-care (01) ==
LOC: RADCTMAIN 08:05
PROVIDERS: ATTEND Family Medicine
DX: J98.4 Other disorders of lung (principal)
CPT/HCPCS: 82565; 84520; 71260; 36415; Q9967

== ENCOUNTER → 2020-03-08 | Outpatient (CLI) | payer MEDICARE | END | disposition home or self-care (01) | LOC: LABPAT 14:44 | PROVIDERS: ATTEND Orthopaedic Surgery | DX: Z01.812 Encounter for preprocedural laboratory examination (principal) | CPT/HCPCS: 87070 ==

== ENCOUNTER 2020-04-03 06:04 | Day surgery (SDC) | payer MEDICARE ==
--- NOTE | 2020-04-02 10:34 | HP ---
HISTORY AND PHYSICAL CHIEF COMPLAINT: Left shoulder pain. HISTORY OF PRESENT ILLNESS: The patient is a 74-year-old, right-hand dominant, retired gentleman who presents with progressive left shoulder pain for the past several years. It has worsened recently. He is having pain with any attempted overhead use and at night. He has tried medications, injections, and activity modifications without much relief. He notes the pain severely limits him. PAST MEDICAL HISTORY: Significant for arthritis, hyperlipidemia, and hypertension. PAST SURGICAL HISTORY: Significant bilateral total knee arthroplasty. CURRENT MEDICATIONS: Amlodipine, simvastatin, citalopram, and benazepril. He denies drug allergies. FAMILY HISTORY: Noncontributory. SOCIAL HISTORY: Negative for current tobacco or alcohol use. 16 POINT REVIEW OF SYSTEMS: Otherwise reviewed and is noncontributory. PHYSICAL EXAMINATION: On examination, the patient is approximately 6 foot tall, 265 pounds of endomorphic habitus. HEENT: Exam is nonfocal. NECK: Supple. On examination of his left shoulder, he is tender about the anterior subacromial space. He is also tender about the anterior glenohumeral joint. He has moderate subacromial crepitus. Active range of motion of the left shoulder. Forward elevation 135 degrees, external rotation with the arm side 10 degrees internal rotation to L4. Motor strength is 5/5 for abduction and external rotation. Impingement test and Neer test are positive. His distal neurovascular appears intact in the left upper extremity. AP and scapular outlet views of the left shoulder obtained in the office show severe glenohumeral joint osteoarthrosis with [id number] changes. There is subchondral sclerosis and an inferior osteophyte. IMPRESSION: Left severe glenohumeral joint osteoarthrosis. RECOMMENDATIONS: I talked to the patient at length regarding his condition and treatment options. At this point, he is quite symptomatic and limited because of pain related to his osteoarthrosis despite conservative measures. After thorough discussion, he opts to proceed with surgery. We will plan to proceed with left total shoulder arthroplasty. Risks and benefits were discussed at length in layman's terms. We will institute DVT prophylaxis postoperatively. MMODL / IJN: [id number] /
[~2020-04-03 06:04] MED LIST changes: +ACETAMINOPHEN TAB 500 MG TAB PO ONE; +DEXAMETHASONE SOD PHOSPHATE 10 MG/ML 1 ML VIAL IV ONE; +HYDROmorphone 0.5 MG/0.5 ML SYRINGE IVP PRN; -LACTATED RINGERS 1,000 ML IV SCH; +LIDOCAINE 1% (10MG/ML) FOR IV START INTRADERMA PRN; +MELOXICAM 7.5 MG TAB PO ONE; +MIDAZOLAM 2 MG/2 ML VIAL IV PRN; +ONDANSETRON 4 MG/2 ML VIAL IVP ONE; +TRANEXAMIC ACID 1,000 MG in SODIUM CHLORIDE 0.9% 100 ML IVPB ONE; +ceFAZolin 3 GM in SODIUM CHLORIDE 0.9% 100 ML IVPB ONE; +fentaNYL (PF) 50 MCG/ML 2 ML AMP IV PRN
[2020-04-03] MEDS: LACTATED RINGERS 1,000 ML IV SCH (06:51)
[2020-04-03] MEDS ORDERED: fentaNYL (PF) 50 MCG/ML 2 ML AMP ONE (07:59)
[2020-04-03] MEDS ORDERED: LIDOCAINE 1% INJ 10MG/ML (20 ML MDV) ONE (07:59)
[2020-04-03] MEDS ORDERED: SODIUM CHLORIDE 0.9% 100 ML BAG ONE (07:59)
[2020-04-03] MEDS ORDERED: SUCCINYLCHOLINE CHLORIDE 100 MG/5 ML SYR IV ONE (07:59)
[2020-04-03] MEDS ORDERED: NEOSTIGMINE 1 MG/ML 10 ML VIAL ONE (07:59)
[2020-04-03] MEDS ORDERED: TRANEXAMIC ACID 1,000 MG/10 ML VIAL ONE (07:59)
[2020-04-03] MEDS ORDERED: PROPOFOL 10 MG/ML 20 ML VIAL IV ONE (07:59)
[2020-04-03] MEDS ORDERED: ROCURONIUM 10 MG/ML (10 ML VIAL) IV ONE (07:59)
[2020-04-03] MEDS ORDERED: GLYCOPYRROLATE 0.2 MG/ML 2 ML VIAL ONE (07:59)
[2020-04-03] MEDS ORDERED: PHENYLEPHRINE-0.9% NACL SYG 1 MG/10 ML SYRINGE ONE (07:59)
[2020-04-03] MEDS ORDERED: MIDAZOLAM 2 MG/2 ML VIAL ONE (07:59)
[2020-04-03] MEDS ORDERED: ceFAZolin 3,000 MG in SODIUM CHLORIDE 0.9% IRRIGATIO 3,000 ML IRRIGATION ONE (08:37)
[2020-04-03] MEDS ORDERED: LACTATED RINGERS 1,000 ML IV ONE (09:06)
[2020-04-03] MEDS ORDERED: ONDANSETRON 4 MG/2 ML VIAL IVP PRN (10:02)
[2020-04-03] MEDS ORDERED: HYDROcodone/APAP 7.5-325MG 1 EACH TAB PO PRN (10:05)
--- NOTE | 2020-04-03 10:32 | P.OP ---
Date of Procedure: 04/03/20 Preoperative Diagnosis: Severe left glenohumeral joint osteoarthrosis Postoperative Diagnosis: Same Procedure(s) Performed: Left total shoulder arthroplasty Implants: [employer] Size 12 humeral stem/size 14 humeral metaphysis, 52 mm +21 eccentric humeral head, 48 mm central pegged cemented glenoid component. Anesthesia: muriel FISHER Surgeon: Mikael Beltran Furnace Builder #1: Ravi Raines Estimated Blood Loss (ml): 200 Pathology: other (Humeral head) Condition: stable Disposition: PACU Indications for Procedure: The patient's a 74-year-old male presents with progressive left shoulder pain secondary to osteoporosis despite conservative measures. A discussion of the risks and benefits of operative intervention versus continued conservative measures was made with patient. He opted proceed with surgery. Operative risks to include infection, neurovascular injury, development of blood clots, possible fracture, possible instability, and possible need for subsequent procedures was discussed. Informed consent was obtained. Operative Findings: As below Description of Procedure: The patient was brought to the operating room, and after induction of general an esthesia was placed in the beachchair position. The bony prominences were appropriately padded. The Left upper extremity was prepped and draped in normal fashion. A deltopectoral incision was then made lateral to the coracoid process extending approximately 12 cm. The skin was incised sharply. Subcutaneous tissues were divided bluntly. Electrocautery was used for hemostasis. The deltopectoral interval was identified and the cephalic vein gently retracted laterally with the deltoid. Subdeltoid adhesions were bluntly dissected. A self-retaining retractor was placed. The clavipectoral fascia was opened and the conjoined tendon gently retracted medially. The upper one third of the pectoralis major was released to help facilitate exposure. The biceps was identified and the sheath was opened. The rotator interval was opened. The biceps was tenotomized and allowed to retract distally. The lesser tuberosity osteotomy was performed with a small sagittal saw. This completed with an osteotome. The humeral head was then exposed releasing the capsule off the humeral neck. The shoulder was gently dislocated. A starting hole was made in the head in line with the humeral shaft. The shaft was reamed by hand up to 12 mm. There is good distal chatter. The cutting guide was placed planning on 8 cut flush with the rotator cuff insertion and 30 of retroversion. The cutting block was pinned in place. The humeral head cut was then made. This measured most appropriately at 52 mm. Residual inferior osteophytes were carefully removed flush with the [place] cortical bone. A posterior glenoid retractor was placed. The glenoid was then exposed releasing the labrum from the 6-12 o'clock position. Residual labral tissue was removed. The glenoid sized most appropriate 48 mm. A guidewire was then inserted planning on the appropriate version. The glenoid was reamed down to a bleeding bony surface. The central pedicle was drilled. The alignment guide was placed in the peripheral peg holes drilled. The trial size 48mm glenoid was placed and was fully seated. There was good anterior to posterior and inferior to superior fit. The trial component was removed. The wound was irrigated. The bony surface was dried. The peripheral peg holes were then pressurized with cement utilizing a syringe. Excess cement was removed. A central peg glenoid was then placed and was fully seated. This was gently impacted. This was held in place until the cement had sufficiently hardened. Attention was then paid again towards preparing the proximal humerus. The appropriate broach was placed in 30 of retroversion and was fully seated. An eccentric 52 x 21 mm humeral head was placed. The shoulder was gently reduced. It was taken through a range of motion. It was felt to be stable in flexion and extension with internal and external rotation. I felt there was adequate anglican of soft tissue tension. The shoulder was gently dislocated. The trial components were then removed. A #2 Ethibond was placed laterally for reattachment of the lesser tuberosity. The humeral stem was inserted in 30 of retroversion and was fully seated. There was good rotational stability. The eccentric 52 x 21 mm eccentric humeral head was gently impacted. The shoulder was then gently reduced and taken through range of motion and was felt to be stable. Pulsatile lavage was utilized. Lesser tuberosity was reattached utilizing #2 Ethibond suture. The rotator interval was closed with #2 Ethibond suture. She had minimal drainage at this point therefore a deep drain was not placed. The deltopectoral interval was closed with interrupted 2-0 Vicryl sutures. The subcu tissues were reapproximated with interrupted 2-0 Vicryl sutures. The skin was reprepped with 3-0 subcuticular Prolene suture. Steri-Strips were applied. A sterile dressing was applied in addition to a sling. The patient was then awoken from general anesthesia and transferred to recovery room in good condition. Blood loss was estimated at 200 mL. No complications were incurred. Sponge and needle counts were correct at the end the case. Dexter COMBS Furnace Builder during the major components the case to include exposure, resection, implantation, and closure.
--- NOTE | 2020-04-03 10:53 | XR ---
EXAMINATION TYPE: XR shoulder limited LT DATE OF EXAM: 04/03/2020 COMPARISON: 03/07/2020 HISTORY: Degenerative changes post replacement TECHNIQUE: AP left shoulder FINDINGS: Left shoulder prosthesis is been placed. No acute fractures are evident. Postsurgical herrera es are within soft tissues. IMPRESSION: 1. No fracture post left shoulder replacement.
--- NOTE | 2020-04-03 11:01 | P.ANPRN ---
Procedure Note - Anesthesia - Nerve Block Performed Left Interscalene Single Time Out Performed: Yes ([id number]) Date of Procedure: 04/03/20 Procedure Start Time: 10:47 Procedure Stop Time: 10:51 Location of Patient: PreOp Indication: Acute Post-Operative Pain, Requested by Surgeon Specifically requested for management of pain by : Mikael Beltran Sedation Type: Sedate with meaningful contact maintained Preparation: Sterile Prep Position: Supine Catheter: None Needle Types: Pajunk Needle Gauge: 21 Ultrasound used to visualize needle placement: Yes Ultrasound used to observe medication spread: Yes Injectate: 0.5% Ropivacaine (see comment for volume) (30cc) Blood Aspirated: No Pain Paresthesia on Injection Noted: No Resistance on Injection: Normal Image Stored and Saved: Yes Events: Uneventful and Well Tolerated
[2020-04-03] MEDS: ceFAZolin 3 GM in SODIUM CHLORIDE 0.9% 100 ML IVPB SCH ×2 (15:54→23:04)
--- NOTE | 2020-04-03 16:13 | P.CONS ---
History of Present Illness - Reason for Consult Consult date: 04/03/20 hypertension Requesting physician: Mikael Beltran - Chief Complaint left shoulder pain - History of Present Illness Patient is a 74 yo CM with a hx of HTN, OA, and melanoma who presented for elective left total shoulder arthroplasty. He underwent the procedure without any immediate post operative complications. Patient seen and at bedside. He states that he is still having some numbness in his right shoulder and that his left shoulder is completely numb. He denies chest pain, nausea, light headedness, and dizziness. He has no shortness of breath. No recent cough, cold, fever, flu. He underwent surgery due to increasing pain over the last 6 years, failed conservative therapy. Review of Systems Pertinent positives and negatives as discussed in HPI, a complete review of systems was performed and all other systems are negative. 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 Pain in neck, DDD. History of Any Multi-Drug Resistant Organisms: None Reported Past Surgical History: Cholecystectomy, Joint Replacement, Orthopedic Surgery Additional Past Surgical History / Comment(s): Bilateral knee replacement, Rt Achilles tendon surgery. Mole removed from back with scab, cataract surgery, tumor maligant growth removed on the back, pain procedures. Past Anesthesia/Blood Transfusion Reactions: No Reported Reaction Past Psychological History: Depression, PTSD Smoking Status: Former smoker Past Alcohol Use History: Occasional Additional Past Alcohol Use History / Comment(s): Quit smoking APPRO 1981, smoked 1 PPD x 20 yrs. Past Drug Use History: None Reported Additional History: No cane or walker use - Past Family History Father Family Medical History: Blood Disorder, Cancer Additional Family Medical History / Comment(s): skin, colon cancer. Mother Family Medical History: Cancer Additional Family Medical History / Comment(s): Kidney, stomach Medications and Allergies Home Medications Medication Instructions Recorded Confirmed Type Citalopram Hydrobromide [CeleXA] 40 mg PO HS 06/23/15 04/03/20 History Cholecalciferol [Vitamin D3] 2,000 unit PO DAILY 08/27/15 04/03/20 History Simvastatin [Zocor] 20 mg PO HS 03/20/17 04/03/20 History Benazepril HCl 10 mg PO QAM 11/10/18 04/03/20 History amLODIPine [Norvasc] 2.5 mg PO QAM 11/10/18 04/03/20 History Allergies Allergy/AdvReac Type Severity Reaction Status Date / Time No Known Allergies Allergy Verified 04/03/20 06:44 Physical Exam Osteopathic Statement: *. No significant issues noted on an osteopathic structural exam other than those noted in the History and Physical/Consult. Vitals: Vital Signs Temp Pulse Pulse Resp BP BP Pulse Ox 04/03/20 15:00 98.1 F 114 H 18 142/82 91 L 04/03/20 13:23 105 H 04/03/20 13:01 98.4 F 105 H 18 153/84 94 L 04/03/20 12:31 94 16 122/65 93 L 04/03/20 11:56 100 16 141/74 93 L 04/03/20 11:45 99 16 143/73 96 04/03/20 11:30 97 16 149/74 95 04/03/20 11:15 86 16 133/69 96 04/03/20 11:02 72 16 111/57 99 04/03/20 10:45 66 20 123/71 99 04/03/20 10:30 62 16 122/64 98 04/03/20 10:24 98.0 F 81 16 143/77 94 L 04/03/20 06:39 97.9 F 104 H 16 182/93 95 Intake and Output 04/03/20 04/03/20 04/03/20 06:59 14:59 22:59 Intake Total 500 2061 Output Total 200 Balance 500 1861 Intake: IV 500 2061 Lactated Ringers 1,000 ml 560 @ 70 mls/hr IV .[id number] [facility]WIN Rx#:[id number] ceFAZolin 3 gm In Sodium 100 Chloride 0.9% 100 ml @ 200 mls/hr IVPB Q8HR [facility] Rx#:[id number] Output: Estimated Blood Loss 200 Other: Voiding Method Toilet Weight 121.7 kg 121.7 kg General: non toxic, no distress, appears at stated age, obese Derm: warm, dry Head: atraumatic, normocephalic, symmetric Eyes: EOMI, no lid lag, anicteric sclera, pupils equal round reactive to light ENT: Nose and ears atraumatic, no thrush, no pharyngeal erythema Neck: No thyromegaly, no cervical lymphadenopathy, trachea midline, supple Mouth: no lip lesion, mucus membranes moist Cardiovascular: S1S2 reg, no murmur, positive posterior tibial pulse bilateral, no edema, capillary refill less than 2 seconds Lungs: clear to ascultation bilateral, no ronchi, no rales, no wheeze, no acce ssory muscle use Abdominal: soft, nontender to palpation, no guarding, no appreciable organomegaly, normal bowel sounds Ext: left shoulder immobilizer in place, no gross muscle atrophy, muscle stren gth muscle strength 5 out of 5 in lower extremities, no contractures Neuro: CN II-XI grossly intact, light touch intact all 4 extremities, Psych: Alert, oriented, appropriate affect Assessment and Plan Assessment: Patient is a 74 yo CM here with left total shoulder arthroplasty. HTN - Resume home meds - follow BP HLD - statin Obesity with BMI 36.4 - structured outpatient weight loss Arthritis - Resume Aleve when okay with ortho
[2020-04-03] MEDS: HYDROcodone/APAP 7.5-325MG 1 EACH TAB PO PRN (20:36)
[2020-04-03] MEDS ORDERED: CITALOPRAM HYDROBROMIDE 20 MG TAB PO SCH (21:00)
[2020-04-03] MEDS ORDERED: ATORVASTATIN 10 MG TAB PO SCH (21:00)
[2020-04-03] MEDS: HYDROmorphone 1 MG/ML 1 ML SYRINGE IVP PRN (23:04)
[2020-04-04] MEDS: HYDROmorphone 1 MG/ML 1 ML SYRINGE IVP PRN ×2 (03:00→05:59)
[2020-04-04] MEDS: LACTATED RINGERS 1,000 ML IV SCH (03:00)
[2020-04-04 03:30] VITALS: TEMP 97.9
[2020-04-04 06:32] LABS: Basophils % (A) 0 %; Eosinophils % (A) 0 %; HCT 44.3 % (39.0-53.0); HGB 14.3 gm/dL (13.0-17.5); Lymphocytes # (A) 1.7 k/uL (1.0-4.8); Lymphocytes % (A) 15 %; MCH 29.4 pg (25.0-35.0); MCHC 32.2 g/dL (31.0-37.0); MCV 91.5 fL (80.0-100.0); Mean Platelet Volume 7.9; Monocytes # (A) 0.9 k/uL (0-1.0); Monocytes % (A) 7 %; Neutrophils # (A) 8.6 k/uL (1.3-7.7); Neutrophils % (A) 75 %; Platelet Count 229 k/uL (150-450); RBC 4.84 m/uL (4.30-5.90); RDW 13.7 % (11.5-15.5); WBC 11.5 k/uL (3.8-10.6)
[2020-04-04 07:13] VITALS: BP 156/89; PULSE 100; RESP 24
[2020-04-04] MEDS ORDERED: lisinopriL 10 MG TAB PO SCH (09:00)
[2020-04-04] MEDS ORDERED: amLODIPine 2.5 MG TAB PO SCH (09:00)
[2020-04-04] MEDS ORDERED: ASPIRIN 325 MG TAB PO SCH (09:00)
[2020-04-04] MEDS ORDERED: CHOLECALCIFEROL 1,000 UNIT TAB PO SCH (09:00)
[2020-04-04] MEDS: HYDROcodone/APAP 7.5-325MG 1 EACH TAB PO PRN (12:13)
--- NOTE | 2020-04-04 12:44 | P.PN ---
Subjective Progress Note Date: 04/04/20 Principal diagnosis: Status post left total shoulder arthroplasty Patient evaluated today at bedside, his is present. He is very comfortable at this time, pain is controlled. He is utilizing the arm sling. He is having no nausea or vomiting, chest pain or shortness of breath. Objective - Vital Signs Vital signs: Vital Signs Temp 97.9 F 04/04/20 07:00 Pulse 100 04/04/20 07:00 Resp 24 04/04/20 07:00 BP 156/89 04/04/20 07:00 Pulse Ox 93 L 04/04/20 02:36 Intake & Output 04/03/20 04/04/20 04/04/20 18:59 06:59 18:59 Intake Total 2060 560 Output Total 200 Balance 1861 560 Weight 121.7 kg Intake: IV 2060 560 Lactated Ringers 1,000 ml 560 560 @ 70 mls/hr IV .[id number] [facility]ERWIN Rx#:[id number] ceFAZolin 3 gm In Sodium 100 Chloride 0.9% 100 ml @ 200 mls/hr IVPB Q8HR [facility]ERWIN Rx#:[id number] Output: Estimated Blood Loss 200 Other: Voiding Method Toilet Toilet - Exam Left upper extremity: Incision is clean, dry and intact. Steri-Strips are in good position and condition. Minimal soft tissue swelling or ecchymosis present in the upper arm. His sensory exam to light touch throughout the extremity is intact. His radial pulses 2+. - Labs CBC & Chem 7: 04/04/20 06:06 Labs: Abnormal Lab Results - Last 24 Hours (Table) 04/04/20 Range/Units 06:06 WBC 11.5 H (3.8-10.6) k/uL Neutrophils # 8.6 H (1.3-7.7) k/uL Assessment and Plan Assessment: Status post left total shoulder arthroplasty Plan: Pain control, plan for discharge home on oral medication Wound care instructions discussed Activity level restrictions discussed DVT prophylaxis, aspirin 325 mg daily for 2 weeks Plan for discharge home today Time with Patient: Less than 30
--- NOTE | 2020-04-04 12:48 | P.DS ---
Providers Date of admission: 04/03/2020 Expected date of discharge: 04/04/20 Attending physician: Mikael Beltran Consults: 04/03/20 10:02 Consult Physician Routine Consulting Provider: Hazel Bonner Consult Reason/Comments: medical management Do you want consulting provider notified?: Yes Primary care physician: Ab Narvaez [facility] Course: Date of admission: 04/03/2020 Date of discharge: 04/04/2020 Admission diagnosis: Status post left total shoulder arthroplasty Discharge diagnosis: Same Attending physician: Dr. Beltran Surgical procedures: Left total shoulder arthroplasty Brief history: Patient is a 74-year-old male with a history of progressive primary left total shoulder arthroplasty. At this point patient has failed conservative treatment measures and has opted to proceed with a elective left total shoulder arthroplasty. Hospital course: Details of patient's surgery can be found in operative report. Patient tolerated the procedure well and was subsequently transported to orthopedic floor. Patient's orthopeidc and medical care was provided daily. Patient had daily laboratory tests performed for evaluation of overall blood counts. Patient had daily physical therapy to include strengthening range of motion as well as education with walker ambulation. Patient was treated with aspirin for their postoperative DVT prophylaxis during their inpatient stay. Patient was noted to have a relatively uneventful postoperative course. Patient reported satisfactory pain control with oral pain medications by postoperative day 0. Patient showed satisfactory progress with physical therapy. Patient moved steadily through the program and had no difficulty meeting the goals by postoperative day 1. Given patient's otherwise satisfactory course and having met physical therapy goals, plan is to discharge patient home on postoperative day 1. Discharge condition/disposition: Patient will be discharged home in stable condition. Discharge medications: Instructions are given on resumption of patient's normal daily medications per primary care recommendation, in addition patient will be prescribed Victoria 5 mg/325 mg, Colace 100 mg, aspirin 325 mg. Discharge instructions: 1. Wound care and infection precautions, keep incision dry and covered while showering, no lotions, creams, moisturizers. No soaking, tubs, pools, hottubs. Do not scrub over the incision. 2. Utilize arm sling 3. Ice and elevate when necessary. Do not exceed 20 minutes per hour with ice pack. 4. Utilize compression sleeve until seen at first follow up appointment. 5. Visiting nursing care. 6. Home physical therapy 7. Pain meds and anticoagulants per prescription. 8. Pain medication has potential to cause constipation. Increase oral fluid and fiber intake. Contact primary care provider if you have not had a bowel movement within 48 hours after discharge 9. No anti-inflammatory medication until discussed at first post operative visit, this including Motrin, Aleve, Mobic, Diclofenac 10. Follow up in office at 2 weeks postop with Dexter Raines PA-C 11. Follow up with your primary care doctor 7-10 days after discharge. 12. Contact [facility] with any questions, . Procedures: Left total shoulder arthroplasty Patient Condition at Discharge: Good Plan - Discharge Summary Discharge Rx Participant: Yes New Discharge Prescriptions: New Aspirin 325 mg PO DAILY #30 tab Docusate [Colace] 100 mg PO DAILY #30 capsule Hydrocodone/Acetaminophen [Victoria 5-325] 1 each PO Q6HR PRN #28 tab PRN Reason: Pain Continue Citalopram Hydrobromide [CeleXA] 40 mg PO HS Cholecalciferol [Vitamin D3 (25 Mcg = 1000 Iu)] 2,000 unit PO DAILY Simvastatin [Zocor] 20 mg PO HS amLODIPine [Norvasc] 2.5 mg PO QAM Benazepril HCl 10 mg PO QAM Discharge Medication List Citalopram Hydrobromide [CeleXA] 40 mg PO HS 06/23/15 [History] Cholecalciferol [Vitamin D3 (25 Mcg = 1000 Iu)] 2,000 unit PO DAILY 08/27/15 [History] Simvastatin [Zocor] 20 mg PO HS 03/20/17 [History] Benazepril HCl 10 mg PO QAM 11/10/18 [History] amLODIPine [Norvasc] 2.5 mg PO QAM 11/10/18 [History] Aspirin 325 mg PO DAILY #30 tab 04/04/20 [Rx] Docusate [Colace] 100 mg PO DAILY #30 capsule 04/04/20 [Rx] Hydrocodone/Acetaminophen [Victoria 5-325] 1 each PO Q6HR PRN #28 tab 04/04/20 [Rx] Follow up Appointment(s)/Referral(s): Ravi Raines PAC [PHYSICIAN MERCHANDISE TEAM MANAGER] - 04/18/20 3:10 pm Ab Maguire MD [Primary Care Provider] - 04/11/20 3:00 pm Patient Instructions/Handouts: *Surgery [facility] - ([facility]) Shoulder Discharge Instructions Activity/Diet/Wound Care/Special Instructions: Orthopedic discharge instructions: 1. Pain medication as needed 2. Aspirin 325 mg daily for DVT prophylaxis 3. Utilize arm sling daily 4. Ice shoulder often 5. Plan for follow-up at [facility] in 2 weeks Discharge Disposition: HOME WITH HOME HEALTH SERVICES
--- NOTE | 2020-04-04 16:42 | P.PN ---
Subjective Progress Note Date: 04/04/20 Principal diagnosis: shoulder pain Patient is a 74 yo CM with a hx of HTN, OA, and melanoma who presented for elective left total shoulder arthroplasty. He underwent the procedure without any immediate post operative complications. Patient seen and examined at bedside. Pain well controlled. No nausea. No vomiting. No diarrhea. No chest pain or shortness of breath. General: non toxic, no distress, appears at stated age Derm: warm, dry Head: atraumatic, normocephalic, symmetric Eyes: EOMI, no lid lag, anicteric sclera Mouth: no lip lesion, mucus membranes moist Cardiovascular: S1S2 reg, no murmur, positive posterior tibial pulse bilateral, Lungs: CTA bilateral, no rhonchi, no rales , no accessory muscle use Abdominal: soft, nontender to palpation, no guarding, no appreciable organomegaly Ext: no gross muscle atrophy, no edema, no contractures Neuro: CN II-XI grossly intact, no focal neuro deficits Psych: Alert, oriented, appropriate affect Hypertension -Resume home meds on discharge Dyslipidemia -Statin Obesity with BMI 36.4 -Outpatient weight loss Medically optimized for discharge. Hypertensive and high cholesterol medications addressed on discharge med rec. Thank you for allowing us to participate in the care of this patient. Objective - Vital Signs Vital signs: Vital Signs Temp 97.9 F 04/04/20 07:00 Pulse 100 04/04/20 07:00 Resp 24 04/04/20 07:00 BP 156/89 04/04/20 07:00 Pulse Ox 93 L 04/04/20 02:36 Intake & Output 04/03/20 04/04/20 04/04/20 18:59 06:59 18:59 Intake Total 2060 560 Output Total 200 Balance 1861 560 Weight 121.7 kg Intake: IV 2060 560 Lactated Ringers 1,000 ml 560 560 @ 70 mls/hr IV .[id number] [facility] Rx#:[id number] ceFAZolin 3 gm In Sodium 100 Chloride 0.9% 100 ml @ 200 mls/hr IVPB Q8HR [facility] Rx#:[id number] Output: Estimated Blood Loss 200 Other: Voiding Method Toilet Toilet - Labs CBC & Chem 7: 04/04/20 06:06 Labs: Abnormal Lab Results - Last 24 Hours (Table) 10/14/20 Range/Units 06:06 WBC 11.5 H (3.8-10.6) k/uL Neutrophils # 8.6 H (1.3-7.7) k/uL
== END 2020-04-04 13:57 | disposition home health service (06) ==
LOC: OR 06:04 → 4SSUR 10:00 → OR 04-04 13:57
PROVIDERS: ATTEND Orthopaedic Surgery
DX: M19.012 Primary osteoarthritis, left shoulder (principal); I10 Essential (primary) hypertension; E78.5 Hyperlipidemia, unspecified; E66.9 Obesity, unspecified; F43.10 Post-traumatic stress disorder, unspecified; F32.9 Major depressive disorder, single episode, unspecified; G89.4 Chronic pain syndrome; Z79.899 Other long term (current) drug therapy; Z85.820 Personal history of malignant melanoma of skin; Z90.49 Acquired absence of other specified parts of digestive tract; Z98.890 Other specified postprocedural states; Z96.653 Presence of artificial knee joint, bilateral; Z98.49 Cataract extraction status, unspecified eye; Z87.891 Personal history of nicotine dependence; Z80.0 Family history of malignant neoplasm of digestive organs; Z80.8 Family history of malignant neoplasm of other organs or systems; Z80.51 Family history of malignant neoplasm of kidney; Z68.36 Body mass index [BMI] 36.0-36.9, adult; Z82.49 Family history of ischemic heart disease and other diseases of the circulatory system
CPT/HCPCS: 23472; 64415; 76942; 88305; 85025; 88311; 73020; C1713; C1776; J2250; J1100; J2710; J0690 ×2; J2405; J2001; J3010; J1170 ×3; J2370; J0330; J2704

== ENCOUNTER → 2020-06-01 | Outpatient (CLI) | payer MEDICARE ==
[2020-06-01 14:33] LABS: Basophils # (A) 0.1 k/uL (0-0.2); Basophils % (A) 1 %; Eosinophils # (A) 0.1 k/uL (0-0.7); Eosinophils % (A) 2 %; HCT 42.5 % (39.0-53.0); HGB 13.9 gm/dL (13.0-17.5); Lymphocytes # (A) 1.7 k/uL (1.0-4.8); Lymphocytes % (A) 22 %; MCH 29.3 pg (25.0-35.0); MCHC 32.6 g/dL (31.0-37.0); MCV 89.8 fL (80.0-100.0); Mean Platelet Volume 7.7; Monocytes # (A) 0.5 k/uL (0-1.0); Monocytes % (A) 6 %; Neutrophils # (A) 5.1 k/uL (1.3-7.7); Neutrophils % (A) 67 %; Platelet Count 193 k/uL (150-450); RBC 4.74 m/uL (4.30-5.90); RDW 13.7 % (11.5-15.5); WBC 7.6 k/uL (3.8-10.6)
[2020-06-01 14:40] LABS: Potassium 4.8 mmol/L (3.5-5.1)
[2020-06-01 14:48] LABS: Prothrombin Time 10.1 sec (9.0-12.0)
== END | disposition home or self-care (01) ==
LOC: LABPAT 13:38
PROVIDERS: ATTEND Orthopaedic Surgery
DX: Z01.818 Encounter for other preprocedural examination (principal); M19.011 Primary osteoarthritis, right shoulder
CPT/HCPCS: 36415; 80051; 85025; 85610; 87070

== ENCOUNTER 2020-06-19 08:44 | Inpatient (IN) | payer MEDICARE ==
[2020-06-12 15:02] VITALS: BMI 36.3
--- NOTE | 2020-06-18 09:24 | HP ---
HISTORY AND PHYSICAL CHIEF COMPLAINT: Right shoulder pain. HISTORY OF PRESENT ILLNESS: Patient is a 75-year-old, right-hand dominant, retired gentleman who presents with progressive right shoulder pain for the past several years. It has worsened recently. He is having pain with any attempted overhead use. He is having night symptoms as well. He notes this severely limits his function and activities. He has been taking medications for this. PAST MEDICAL HISTORY: Significant for hypertension and hyperlipidemia. PAST SURGICAL HISTORY: Significant for left total shoulder arthroplasty and bilateral total knee. CURRENT MEDICATIONS: 1. Amlodipine. 2. Benazepril. 3. Citalopram. 4. Simvastatin. ALLERGIES: He denies drug allergies. FAMILY HISTORY: Family history is noncontributory. SOCIAL HISTORY: Negative for current tobacco or alcohol use. REVIEW OF SYSTEMS: Sixteen-point review of systems otherwise reviewed and is noncontributory. PHYSICAL EXAMINATION: On examination, the patient is approximately 6 feet tall, 265 pounds of endomorphic habitus. HEENT exam is nonfocal. Neck is supple. On examination of his right shoulder, he is tender about the anterior glenohumeral joint. He has moderate subacromial crepitus. Active range of motion forward elevation 135 degrees, external rotation with arm to side 30 degrees, internal rotation to L5. Motor strength is 5/5 for abduction and external rotation. Impingement test, Neer test are positive. His distal neurovascular appears intact in the right upper extremity. Previous x-rays of the right shoulder obtained in the office show severe osteoarthrosis with [id number] changes. The humeral head to acromial distance appears to be maintained. No significant posterior erosion is noted. IMPRESSION: Right severe glenohumeral joint osteoarthrosis. RECOMMENDATIONS: I talked to the patient at length regarding his condition and treatment options. At this point, he is quite symptomatic and limited despite previous conservative measures. After thorough discussion, he opts to proceed with surgery. We will plan to proceed with right total shoulder arthroplasty. Risks and benefits were discussed at length in layman's terms. We will institute DVT prophylaxis postoperatively. MMODL / IJN: [id number] /
[~2020-06-19 08:44] MED LIST changes: -ACETAMINOPHEN TAB 500 MG TAB PO ONE; +ACETAMINOPHEN TAB 500 MG TAB PO PRN; -DEXAMETHASONE SOD PHOSPHATE 10 MG/ML 1 ML VIAL IV ONE; -HYDROmorphone 0.5 MG/0.5 ML SYRINGE IVP PRN; -LIDOCAINE 1% (10MG/ML) FOR IV START INTRADERMA PRN; -MELOXICAM 7.5 MG TAB PO ONE; +MELOXICAM 7.5 MG TAB PO PRN; -MIDAZOLAM 2 MG/2 ML VIAL IV PRN; -ONDANSETRON 4 MG/2 ML VIAL IVP ONE; -TRANEXAMIC ACID 1,000 MG in SODIUM CHLORIDE 0.9% 100 ML IVPB ONE; +TRANEXAMIC ACID 1,000 MG in SODIUM CHLORIDE 0.9% 100 ML IVPB PRN; -ceFAZolin 3 GM in SODIUM CHLORIDE 0.9% 100 ML IVPB ONE; +ceFAZolin 3 GM in SODIUM CHLORIDE 0.9% 100 ML IVPB PRN; -fentaNYL (PF) 50 MCG/ML 2 ML AMP IV PRN
[2020-06-19] MEDS ORDERED: HYDROmorphone 0.5 MG/0.5 ML SYRINGE IVP PRN ×2 (08:56→12:33)
[2020-06-19] MEDS ORDERED: LIDOCAINE 1% (10MG/ML) FOR IV START INTRADERMA PRN (08:56)
[2020-06-19] MEDS ORDERED: MIDAZOLAM 2 MG/2 ML VIAL IV PRN (08:56)
[2020-06-19] MEDS ORDERED: DEXAMETHASONE SOD PHOSPHATE 4 MG/ML 1 ML VIAL IV ONE (08:56)
[2020-06-19] MEDS ORDERED: ONDANSETRON 4 MG/2 ML VIAL IVP ONE (08:56)
[2020-06-19] MEDS: LACTATED RINGERS 1,000 ML IV SCH (09:14)
[2020-06-19] MEDS ORDERED: ceFAZolin 3,000 MG in SODIUM CHLORIDE 0.9% IRRIGATIO 3,000 ML IRRIGATION ONE (11:06)
[2020-06-19] MEDS ORDERED: HYDROcodone/APAP 5-325MG 1 EACH TAB PO PRN (12:33)
[2020-06-19] MEDS ORDERED: ONDANSETRON 4 MG/2 ML VIAL IVP PRN (12:33)
--- NOTE | 2020-06-19 12:54 | P.OP ---
Date of Procedure: 06/19/20 Preoperative Diagnosis: Severe right glenohumeral joint osteoarthrosis Postoperative Diagnosis: Same Procedure(s) Performed: Right total shoulder arthroplasty Implants: [employer] size 12 press-fit humeral stem/14 body, 56 mm x 21 mm eccentric humeral head, 52 mm central pegged cemented glenoid component. Anesthesia: PHILLIP Surgeon: Mikael Beltran Assistant Professor Of Economics #1: Ravi Raines Estimated Blood Loss (ml): 200 Pathology: other (Humeral head) Condition: stable Disposition: PACU Indications for Procedure: The patient's a 75-year-old male presents with progressive right shoulder pain secondary osteoarthrosis despite conservative measures. A discussion of the risks and benefits of operative intervention versus continued conservative measures made with patient. He opted to proceed with surgery. Operative risks to include infection, neurovascular injury, development of blood clots, possible fracture, possible component loosening, possible instability and need for subsequent procedures was discussed. Informed consent was obtained. Operative Findings: As below Description of Procedure: The patient was brought to the operating room, and after induction of general anesthesia was placed in the beachchair position. The bony prominences were appropriately padded. The right upper extremity was prepped and draped in normal fashion. A deltopectoral incision was then made lateral to the coracoid process extending approximately 12 cm. The skin was incised sharply. Subcutaneous tissues were divided bluntly. Electrocautery was used for hemostasis. The deltopectoral interval was identified and the cephalic vein gently retracted laterally with the deltoid. Subdeltoid adhesions were bluntly dissected. A self-retaining retractor was placed. The clavipectoral fascia was opened and the conjoined tendon gently retracted medially. The upper one third of the pectoralis major was released to help facilitate exposure. The biceps was identified and the sheath was opened. The rotator interval was opened. The biceps was tenotomized and allowed to retract distally. The lesser tuberosity osteotomy was performed with a small sagittal saw. This completed with an osteotome. The humeral head was then exposed releasing the capsule off the humeral neck. The shoulder was gently dislocated. A starting hole was made in the head in line with the humeral shaft. The shaft was reamed by hand up to 12 mm. There is good distal chatter. The cutting guide was placed planning on a cut flush with the rotator cuff insertion and 30 of retroversion. The cutting block was pinned in place. The humeral head cut was then made. This measured most appropriately at 56 x 21 mm. Residual inferior osteophytes were carefully removed flush with the [place] cortical bone. A posterior glenoid retractor was placed. The glenoid was then exposed releasing the labrum from the 12-6 o'clock position. Residual labral tissue was removed. The glenoid sized most appr opriate 52 mm. A guidewire was then inserted planning on the appropriate version. The glenoid was reamed down to a bleeding bony surface. The central peg hole was drilled. The alignment guide was placed in the peripheral peg holes drilled. The trial size 52 mm glenoid was placed and was fully seated. There was good anterior to posterior and inferior to superior fit. The trial component was removed. Pulsatile lavage was utilized. The bony surface was dried. The peripheral peg holes were then pressurized with cement utilizing a syringe. Excess cement was removed. A central peg glenoid was then placed and was fully seated. This was gently impacted. This was held in place until the cement had sufficiently hardened. Attention was then paid again towards preparing the proximal humerus. The appropriate broach was placed in 30 of retroversion and was fully seated. An eccentric 56 x 21 mm humeral head was placed. The shoulder was gently reduced. It was taken through a range of motion. It was felt to be stable in flexion and extension with internal and external rotation. I felt there was adequate scientologist of soft tissue tension. The shoulder was gently dislocated. The trial components were then removed. A #2 Ethibond was placed laterally for reattachment of the lesser tuberosity. The humeral stem was inserted in 30 of retroversion and was fully seated. There was good rotational stability. The eccentric 56 x 21 mm humeral head was gently impacted. The shoulder was then gently reduced and taken through range of motion and was felt to be stable. Pulsatile lavage was utilized. Lesser tuberosity was reattached utilizing #2 Ethibond suture. The rotator interval was closed with #2 Ethibond suture. She had minimal drainage at this point therefore a deep drain was not placed. The deltopectoral interval was closed with interrupted 2-0 Vicryl sutures. The subcu tissues were reapproximated with interrupted 2-0 Vicryl sutures. The skin was reprepped with 3-0 subcuticular Prolene suture. Steri-Strips were applied. A sterile dressing was applied in addition to a sling. The patient was then awoken from general anesthesia and transferred to recovery room in good condition. Blood loss was estimated at 200 mL. No complications were incurred. Sponge and needle counts were correct at the end the case. Dexter COMBS assisted of the major comp onents the case include exposure, resection, implantation, and closure.
--- NOTE | 2020-06-19 13:24 | XR ---
EXAMINATION TYPE: XR shoulder limited RT DATE OF EXAM: 06/19/2020 CLINICAL HISTORY: Right shoulder pain and osteoarthritis. TECHNIQUE: One view of the right shoulder is obtained. COMPARISON: Prior x-ray March 07, 2020. FINDINGS: There is with metallic hardware from shoulder arthroplasty now present. Surgical changes i n the osseous glenoid noted. Prosthesis positioning satisfactory. IMPRESSION: As above.
[2020-06-19] MEDS ORDERED: ROPIVACAINE 5MG/ML 20ML VIAL MISCELLANE ONE (13:45)
--- NOTE | 2020-06-19 14:05 | P.ANPRN ---
Procedure Note - Anesthesia - Nerve Block Performed Right Interscalene Time Out Performed: Yes (13:43) Date of Procedure: 06/19/20 Procedure Start Time: :43 Procedure Stop Time: :58 Location of Patient: Phase I Indication: Acute Post-Operative Pain, Requested by Surgeon (Dr Beltran) Sedation Type: Sedate with meaningful contact maintained Preparation: Sterile Prep Position: Supine Catheter: None Needle Types: Pajunk Needle Gauge: Other (see comment) (22g) Ultrasound used to visualize needle placement: Yes Ultrasound used to observe medication spread: Yes Injectate: 0.5% Ropivacaine (see comment for volume) (20cc) Blood Aspirated: No Pain Paresthesia on Injection Noted: No Resistance on Injection: Normal Image Stored and Saved: Yes Events: Uneventful and Well Tolerated
[2020-06-19] MEDS: HYDROcodone/APAP 5-325MG 1 EACH TAB PO PRN ×2 (17:22→23:45)
[2020-06-19] MEDS: ceFAZolin 3 GM in SODIUM CHLORIDE 0.9% 100 ML IVPB SCH (17:38)
[2020-06-19] MEDS ORDERED: ATORVASTATIN 10 MG TAB PO SCH (21:30)
[2020-06-20] MEDS: LACTATED RINGERS 1,000 ML IV SCH (02:46)
[2020-06-20] MEDS: ceFAZolin 3 GM in SODIUM CHLORIDE 0.9% 100 ML IVPB SCH (02:46)
[2020-06-20 06:59] LABS: Basophils % (A) 0 %; Eosinophils % (A) 0 %; HCT 38.6 % (39.0-53.0); HGB 12.3 gm/dL (13.0-17.5); Lymphocytes # (A) 1.2 k/uL (1.0-4.8); Lymphocytes % (A) 13 %; MCH 28.9 pg (25.0-35.0); MCV 90.3 fL (80.0-100.0); Monocytes # (A) 0.7 k/uL (0-1.0); Monocytes % (A) 8 %; Neutrophils % (A) 76 %; Platelet Count 227 k/uL (150-450); RBC 4.27 m/uL (4.30-5.90); WBC 9.2 k/uL (3.8-10.6)
[2020-06-20] MEDS: HYDROcodone/APAP 5-325MG 1 EACH TAB PO PRN ×2 (07:28→12:07)
[2020-06-20 08:30] VITALS: BP 165/77; PULSE 87; RESP 17; TEMP 98.2
[2020-06-20] MEDS ORDERED: lisinopriL 10 MG TAB PO SCH (09:00)
[2020-06-20] MEDS ORDERED: ASPIRIN 325 MG TAB PO SCH (09:00)
[2020-06-20] MEDS ORDERED: amLODIPine 2.5 MG TAB PO SCH (09:00)
[2020-06-20] MEDS ORDERED: CHOLECALCIFEROL 1,000 UNIT TAB PO SCH (09:00)
--- NOTE | 2020-06-20 10:01 | P.PN ---
Subjective Progress Note Date: 06/20/20 Principal diagnosis: Status post right total shoulder arthroplasty Patient evaluated at bedside today, he is resting comfortably. His pain is well-controlled with current medication. He is utilizing the arm sling. He denies any headaches, lightheadedness, chest pain, shortness of breath, fever or chills. Objective - Vital Signs Vital signs: Vital Signs Temp 98.2 F 06/20/20 07:47 Pulse 87 06/20/20 07:47 Resp 17 06/20/20 07:47 BP 165/77 06/20/20 07:47 Pulse Ox 95 06/20/20 07:47 Intake & Output 06/19/20 06/20/20 06/20/20 18:59 06:59 18:59 Intake Total 1501 Output Total 850 Balance 651 Weight 121.5 kg Intake: IV 1401 Lactated Ringers 1,000 ml 300 @ 50 mls/hr IV .Q20H [facility] Rx#:[id number] ceFAZolin 3 gm In Sodium 100 Chloride 0.9% 100 ml @ 200 mls/hr IVPB ONCE PRN Rx#:[id number] Intake, IV Titration 100 Amount Tranexamic Acid 1,000 mg 100 In Sodium Chloride 0.9% 100 ml @ 220 mls/hr IVPB ONCE PRN Rx#:[id number] Output: Urine 650 Estimated Blood Loss 200 Other: Voiding Method Toilet # Voids 2 - Exam Right upper extremity: Postoperative bandages removed, incision is clean, dry and intact. There is minimal ecchymosis present in the upper arm. Shoulder range of motion was not assessed, he is able to extend and flex the elbow, along with pronate and supinate the forearm with no difficulty. Extension And flexion of the wrist are intact, intrinsics of the hand are intact. Sensory exam to light touch is intact throughout the extremity. His radial and ulnar pulses are 2+. - Labs CBC & Chem 7: 06/20/20 06:27 Labs: Abnormal Lab Results - Last 24 Hours (Table) 06/20/20 Range/Units 06:27 RBC 4.27 L (4.30-5.90) m/uL Hgb 12.3 L (13.0-17.5) gm/dL Hct 38.6 L (39.0-53.0) % Assessment and Plan Assessment: Status post right total shoulder arthroplasty Plan: Pain control, plan for discharge home on [place] 5 mg/325 mg DVT prophylaxis, aspirin 325 mg daily for 2 weeks Wound care instructions were discussed Activity level restrictions along with use of arm sling were discussed Medical recommendations Plan for discharge home today
--- NOTE | 2020-06-20 10:04 | P.DS ---
Providers Date of admission: 06/19/20 08:44 Expected date of discharge: 06/20/20 Attending physician: Mikael Beltran Consults: 06/19/20 12:33 Consult Physician Routine Consulting Provider: Ab Maguire Consult Reason/Comments: medical management Do you want consulting provider notified?: Yes Primary care physician: Ab Maguire MD Hospital Course: Date of admission: 06/19/2020 Date of discharge: 06/20/2020 Admission diagnosis: status post right total shoulder arthroplasty Discharge diagnosis: same Attending physician: Dr. Beltran Surgical procedures: Right total shoulder arthroplasty Brief history: Patient is a 75-year-old male with a history of progressive primary right shoulder osteoarthritis. At this point patient has failed conservative treatment measures and has opted to proceed with a elective right total shoulder arthroplasty. Hospital course: Details of patient's surgery can be found in operative report. Patient tolerated the procedure well and was subsequently transported to orthopedic floor. Patient's orthopeidc and medical care was provided daily. Patient had daily laboratory tests performed for evaluation of overall blood counts. Patient had daily physical therapy to include strengthening range of motion as well as education with walker ambulation. Patient was treated with aspirin for their postoperative DVT prophylaxis during their inpatient stay. Patient was noted to have a relatively uneventful postoperative course. Patient reported satisfactory pain control with oral pain medications by postoperative day 0. Patient showed satisfactory progress with physical therapy. Patient moved steadily through the program and had no difficulty meeting the goals by postoperative day 1. Given patient's otherwise satisfactory course and having met physical therapy goals, plan is to discharge patient home on postoperative day 1. Discharge condition/disposition: Patient will be discharged home in stable condition. Discharge medications: Instructions are given on resumption of patient's normal daily medications per primary care recommendation, in addition patient will be prescribed [place] 5 mg/325 mg, aspirin 325 mg. Discharge instructions: 1. Wound care and infection precautions, keep incision dry and covered while showering, no lotions, creams, moisturizers. No soaking, tubs, pools, hottubs. Do not scrub over the incision. 2. Utilize arm sling, avoid excess use of the right upper extremity 3. Ice and elevate when necessary. Do not exceed 20 minutes per hour with ice pack. 4. Utilize compression sleeve until seen at first follow up appointment. 7. Pain meds and anticoagulants per prescription. 8. Pain medication has potential to cause constipation. Increase oral fluid and fiber intake. Contact primary care provider if you have not had a bowel movement within 48 hours after discharge 9. No anti-inflammatory medication until discussed at first post operative visit, this including Motrin, Aleve, Mobic, Diclofenac. 10. Follow up in office at 2 weeks postop with Dexter Raines PA-C 11. Follow up with your primary care doctor 7-10 days after discharge. 12. Contact [facility] with any questions, . Procedures: Right total knee arthroplasty Patient Condition at Discharge: Good Plan - Discharge Summary Discharge Rx Participant: Yes New Discharge Prescriptions: New Aspirin 325 mg PO DAILY #30 tab Hydrocodone/Acetaminophen [[place] 5-325] 1 - 2 each PO Q6HR PRN #42 tab PRN Reason: Pain No Action Citalopram Hydrobromide [CeleXA] 40 mg PO HS Cholecalciferol [Vitamin D3 (25 Mcg = 1000 Iu)] 2,000 unit PO DAILY Simvastatin [Zocor] 20 mg PO HS amLODIPine [Norvasc] 2.5 mg PO QAM Benazepril HCl 10 mg PO QAM Discharge Medication List Citalopram Hydrobromide [CeleXA] 40 mg PO HS 06/23/15 [History] Cholecalciferol [Vitamin D3 (25 Mcg = 1000 Iu)] 2,000 unit PO DAILY 08/27/15 [History] Simvastatin [Zocor] 20 mg PO HS 03/20/17 [History] Benazepril HCl 10 mg PO QAM 11/10/18 [History] amLODIPine [Norvasc] 2.5 mg PO QAM 11/10/18 [History] Aspirin 325 mg PO DAILY #30 tab 06/20/20 [Rx] Hydrocodone/Acetaminophen [[place] 5-325] 1 - 2 each PO Q6HR PRN #42 tab 06/20/20 [Rx] Follow up Appointment(s)/Referral(s): Ravi Raines PAC [PHYSICIAN FREIGHT AGENT] - 2 Weeks Patient Instructions/Handouts: Joint Replacement Surgery (DC) Activity/Diet/Wound Care/Special Instructions: Orthopedic Discharge Instructions: 1. Wound care and infection precautions, [keep incision dry and covered while showering], no lotions, creams, moisturizers. No soaking, pools, hot tubs. Do not scrub over incision. 2. Utilize arm sling 3. Ice and elevate when necessary. Do not exceed 20 minutes per hour with ice pack. 4. Utilize compression sleeve until seen at first follow up appointment. 5. Pain meds and anticoagulants per prescription. 6. Pain medication has potential to cause constipation. Increase oral fluid and fiber intake. Contact primary care provider if you have not had a bowel movement within 48 hours after discharge. 7. No anti-inflammatory medication until discussed at first post operative visit, this including Motrin, Aleve, Mobic, Diclofenac 8. Follow up in office at 2 weeks postop with Dexter Raines PA-C 9. Follow up with your primary care doctor 7-10 days after discharge. 10. Contact [facility] with any questions, . Discharge Disposition: HOME SELF-CARE
[2020-06-20] MEDS ORDERED: CITALOPRAM HYDROBROMIDE 20 MG TAB PO SCH (21:00)
== END 2020-06-20 12:10 | disposition home or self-care (01) | DRG 483 ==
LOC: 2ORMAIN 08:44 → 4SSUR 13:41
PROVIDERS: ADMIT Orthopaedic Surgery; ATTEND Orthopaedic Surgery
PROC: 0RRJ0JZ Replacement of Right Shoulder Joint with Synthetic Substitute, Open Approach (ICD-10-PCS; principal; 2020-06-19 10:40)
DX: M19.011 Primary osteoarthritis, right shoulder (principal); E78.5 Hyperlipidemia, unspecified; I10 Essential (primary) hypertension; Z96.612 Presence of left artificial shoulder joint; Z96.653 Presence of artificial knee joint, bilateral; Z79.899 Other long term (current) drug therapy
CPT/HCPCS: 64415; 76942; 85025; 88305; 88311

== ENCOUNTER 2022-05-27 15:13 | Emergency (ER) | payer MEDICARE ==
[2022-05-27 15:29] VITALS: TEMP 98
[2022-05-27 18:27] VITALS: RESP 18
[2022-05-27] MEDS ORDERED: LORazepam 2 MG/ML INJ IV STA ×2 (18:36→19:11)
[2022-05-27 18:53] LABS: Albumin 4.9 g/dL (3.5-5.0); Calcium 9.7 mg/dL (8.4-10.2); Potassium 4.4 mmol/L (3.5-5.1); Total Bilirubin 0.6 mg/dL (0.2-1.3); Total Protein 8.1 g/dL (6.3-8.2)
[2022-05-27 18:54] LABS: Basophils # (A) 0.2 k/uL (0-0.2); Basophils % (A) 2 %; Eosinophils # (A) 0.1 k/uL (0-0.7); Eosinophils % (A) 1 %; HCT 45.4 % (39.0-53.0); HGB 15.1 gm/dL (13.0-17.5); Lymphocytes # (A) 1.8 k/uL (1.0-4.8); Lymphocytes % (A) 17 %; MCH 29.1 pg (25.0-35.0); MCHC 33.2 g/dL (31.0-37.0); MCV 87.7 fL (80.0-100.0); Mean Platelet Volume 8.7; Monocytes # (A) 0.6 k/uL (0-1.0); Monocytes % (A) 5 %; Neutrophils # (A) 7.5 k/uL (1.3-7.7); Neutrophils % (A) 72 %; Platelet Count 269 k/uL (150-450); RBC 5.18 m/uL (4.30-5.90); RDW 13.7 % (11.5-15.5); WBC 10.4 k/uL (3.8-10.6)
[2022-05-27 19:37] LABS: Partial Thromboplastin Time 26.1 sec (22.0-30.0); Prothrombin Time 10.4 sec (9.0-12.0)
--- NOTE | 2022-05-27 20:01 | CT ---
EXAMINATION TYPE: CT angio chest DATE OF EXAM: 05/27/2022 COMPARISON: Chest CT scan 06/17/2019 HISTORY: sent by PCP for medistinal widening CT DLP: 1400.9 mGycm Automated exposure control for dose reduction was used. CONTRAST: Performed without and with IV Contrast, patient injected with 100 mL of Isovue 300. Images obtained from the thoracic inlet through the diaphragm without and subsequently with the IV co ntrast. There are Three-D postprocessed images. The thoracic aorta is intact. No aneurysm or dissection. No mediastinal adenopathy. There are no eugenia r masses. There is normal contrast opacification of the pulmonary arteries. No filling defect. There is bilateral shoulder prosthesis. There is no pleural effusion. The lungs are clear of consolidation. The thoracic vertebra show fairly normal spacing and alignment. No compression fracture. Sternum is i ntact no evidence of rib fracture. The upper abdominal soft tissues are intact. IMPRESSION: Negative CT scan of the chest. No suspicious pulmonary mass. No adenopathy. No evidence of pulmonary embolism.
--- NOTE | 2022-05-27 20:15 | ED ---
General Adult HPI - General Chief complaint: Shortness of Breath Stated complaint: Irregular labs-sent by PCP Source: patient Mode of arrival: ambulatory Limitations: no limitations - History of Present Illness Initial comments: 77-year-old male past history of hypertension, hyperlipidemia presents emergency Department with abnormal chest x-ray. He is pending a hip replacement. He was following with his primary care doctor in office today for preop clearance. They completed a chest x-ray for which the primary care doctor read as a widened mediastinum. Because of this he did refer the patient to the emergency room for CT. Patient denies that he has any symptoms including chest pain, shortness of breath, fevers, chills, cough, radiating pain to the back. No other alleviating, precipitating or modifying factors. - Related Data Home Medications Medication Instructions Recorded Confirmed Citalopram Hydrobromide [CeleXA] 40 mg PO HS 06/23/15 06/05/22 Cholecalciferol [Vitamin D3 (25 2,000 unit PO DAILY 08/27/15 06/05/22 Mcg = 1000 Iu)] Simvastatin [Zocor] 20 mg PO HS 03/20/17 06/05/22 Benazepril HCl 10 mg PO QAM 11/10/18 06/05/22 amLODIPine [Norvasc] 2.5 mg PO QAM 11/10/18 06/05/22 Cholecalciferol [Vitamin D3 (25 1 tab PO DAILY 06/05/22 06/05/22 Mcg = 1000 Iu)] Multivitamins, Thera [Multivitamin 1 tab PO DAILY 06/05/22 06/05/22 (formulary)] Allergies Allergy/AdvReac Type Severity Reaction Status Date / Time No Known Allergies Allergy Verified 06/05/22 13:19 Review of Systems ROS Statement: Those systems with pertinent positive or pertinent negative responses have been documented in the HPI. ROS Other: All systems not noted in ROS Statement are negative. 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 Pain in neck, DDD. History of Any Multi-Drug Resistant Organisms: None Reported Past Surgical History: Cholecystectomy, Joint Replacement, Orthopedic Surgery Additional Past Surgical History / Comment(s): Bilateral knee replacement, Rt Achilles tendon surgery. Mole removed from back with scab, cataract surgery, tumor maligant growth removed on the back, pain procedures. Past Anesthesia/Blood Transfusion Reactions: No Reported Reaction Past Psychological History: Depression, PTSD Smoking Status: Former smoker Past Alcohol Use History: Occasional Past Drug Use History: None Reported - Past Family History Father Family Medical History: Blood Disorder, Cancer Additional Family Medical History / Comment(s): Skin, colon cancer. Mother Family Medical History: Cancer Additional Family Medical History / Comment(s): Kidney, stomach cancer. General Exam Limitations: no limitations General appearance: alert, in no apparent distress Head exam: Present: atraumatic, normocephalic, normal inspection Eye exam: Present: normal appearance, PERRL, EOMI. Absent: scleral icterus, conjunctival injection, periorbital swelling ENT exam: Present: normal exam, mucous membranes moist Neck exam: Present: normal inspection. Absent: tenderness, meningismus, lymphadenopathy Respiratory exam: Present: normal lung sounds bilaterally. Absent: respiratory distress, wheezes, rales, rhonchi, stridor Cardiovascular Exam: Present: regular rate, normal rhythm, normal heart sounds. Absent: systolic murmur, diastolic murmur, rubs, gallop, clicks GI/Abdominal exam: Present: soft, normal bowel sounds. Absent: distended, tenderness, guarding, rebound, rigid Extremities exam: Present: normal inspection, full ROM, normal capillary refill. Absent: tenderness, pedal edema, joint swelling, calf tenderness Back exam: Present: normal inspection Neurological exam: Present: alert, oriented X3, CN II-XII intact Psychiatric exam: Present: normal affect, normal mood Skin exam: Present: warm, dry, intact, normal color. Absent: rash Course Vital Signs 05/27/22 05/27/22 05/27/22 15:24 18:27 20:31 Temperature 98 F Pulse Rate 100 89 99 Respiratory 20 18 18 Rate Blood Pressure 157/89 173/92 141/85 O2 Sat by Pulse 99 100 96 Oximetry Medical Decision Making - Medical Decision Making Upon arrival patient was placed into room 20. A thorough history and physical exam was performed. CT was performed after laboratory studies were obtained. CT negative for any acute process. Patient is informed of this. Results will be sent his primary care doctor. He will need to talk to him to have clearance. Return for any new or worsening symptoms. Patient discharged home in stable condition - Lab Data Result diagrams: 05/27/22 18:23 05/27/22 18:23 Lab Results 05/27/22 05/27/22 05/27/22 Range/Units 18:23 18:23 18:23 WBC 10.4 (3.8-10.6) k/uL RBC 5.18 (4.30-5.90) m/uL Hgb 15.1 (13.0-17.5) gm/dL Hct 45.4 (39.0-53.0) % MCV 87.7 (80.0-100.0) fL MCH 29.1 (25.0-35.0) pg MCHC 33.2 (31.0-37.0) g/dL RDW 13.7 (11.5-15.5) % Plt Count 269 (150-450) k/uL MPV 8.7 Neutrophils % 72 % Lymphocytes % 17 % Monocytes % 5 % Eosinophils % 1 % Basophils % 2 % Neutrophils # 7.5 (1.3-7.7) k/uL Lymphocytes # 1.8 (1.0-4.8) k/uL Monocytes # 0.6 (0-1.0) k/uL Eosinophils # 0.1 (0-0.7) k/uL Basophils # 0.2 (0-0.2) k/uL PT 10.4 (9.0-12.0) sec INR 1.0 (<1.2) APTT 26.1 (22.0-30.0) sec Sodium 138 (137-145) mmol/L Potassium 4.4 (3.5-5.1) mmol/L Chloride 103 (98-107) mmol/L Carbon Dioxide 22 (22-30) mmol/L Anion Gap 13 mmol/L BUN 32 H (9-20) mg/dL Creatinine 1.15 (0.66-1.25) mg/dL Est GFR (CKD-EPI)AfAm 72 (>60 ml/min/1.73 sqM) Est GFR (CKD-EPI)NonAf 62 (>60 ml/min/1.73 sqM) Glucose 90 (74-99) mg/dL Calcium 9.7 (8.4-10.2) mg/dL Total Bilirubin 0.6 (0.2-1.3) mg/dL AST 29 (17-59) U/L ALT 31 (4-49) U/L Alkaline Phosphatase 108 (38-126) U/L Total Protein 8.1 (6.3-8.2) g/dL Albumin 4.9 (3.5-5.0) g/dL Disposition Clinical Impression: Abnormal chest xray Disposition: HOME SELF-CARE Condition: Stable Instructions (If sedation given, give patient instructions): Normal Exam (ED) Additional Instructions: You chest CT was normal. The results will be sent to your primary care doctor. Return for any new or worsening symptoms Is patient prescribed a controlled substance at d/c from ED?: No Referrals: Mahamed Hunter MD [Primary Care Provider] - 1-2 days Time of Disposition: 20:15
[2022-05-27 20:32] VITALS: BP 141/85; PULSE 99
== END 2022-05-27 20:32 | disposition home or self-care (01) ==
LOC: EC 15:13
DX: R91.8 Other nonspecific abnormal finding of lung field (principal); I10 Essential (primary) hypertension; E78.5 Hyperlipidemia, unspecified; M19.90 Unspecified osteoarthritis, unspecified site; F32.A Depression, unspecified; Z87.891 Personal history of nicotine dependence; Z79.899 Other long term (current) drug therapy
CPT/HCPCS: 99285 ×2; 96374 ×2; 96376 ×2; 36415; 80053; 85025; 85610; 85730; 71275; J2060; Q9967

== ENCOUNTER → 2022-06-02 | Outpatient (CLI) | payer MEDICARE | END | disposition home or self-care (01) | LOC: LABPAT 12:25 | PROVIDERS: ATTEND Orthopaedic Surgery | DX: Z01.812 Encounter for preprocedural laboratory examination (principal); M16.11 Unilateral primary osteoarthritis, right hip; Z22.322 Carrier or suspected carrier of Methicillin resistant Staphylococcus aureus | CPT/HCPCS: 87070 ==

== ENCOUNTER 2022-06-10 08:30 | Observation (INO) | payer MEDICARE ==
--- NOTE | 2022-06-09 08:26 | P.HPOR ---
History of Present Illness H&P Date: 06/09/22 Chief Complaint: Right hip pain The patient is a 77-year-old retired male presents with progressive right hip pain for the past year. He notes groin and thigh pain is worse with weightbearing activities. He is also having night symptoms. He has difficulty time getting up from a seated position. He's been taking anti-inflammatories with temporary partial relief. 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 Pain in neck, DDD. History of Any Multi-Drug Resistant Organisms: None Reported Past Surgical History: Cholecystectomy, Joint Replacement, Orthopedic Surgery Additional Past Surgical History / Comment(s): Bilateral knee replacement, Rt Achilles tendon surgery. Mole removed from back with scab, cataract surgery, tumor maligant growth removed on the back, pain procedures. aelta shoulder replacement, Past Anesthesia/Blood Transfusion Reactions: No Reported Reaction Smoking Status: Former smoker - Past Family History Father Family Medical History: Blood Disorder, Cancer Additional Family Medical History / Comment(s): Skin, colon cancer. Mother Family Medical History: Cancer Additional Family Medical History / Comment(s): Kidney, stomach cancer. Medications and Allergies Home Medications Medication Instructions Recorded Confirmed Type Citalopram Hydrobromide [CeleXA] 40 mg PO HS 06/23/15 06/05/22 History Cholecalciferol [Vitamin D3 (25 2,000 unit PO DAILY 08/27/15 06/05/22 History Mcg = 1000 Iu)] Simvastatin [Zocor] 20 mg PO HS 03/20/17 06/05/22 History Benazepril HCl 10 mg PO QAM 11/10/18 06/05/22 History amLODIPine [Norvasc] 2.5 mg PO QAM 11/10/18 06/05/22 History Cholecalciferol [Vitamin D3 (25 1 tab PO DAILY 06/05/22 06/05/22 History Mcg = 1000 Iu)] Multivitamins, Thera [Multivitamin 1 tab PO DAILY 06/05/22 06/05/22 History (formulary)] Allergies Allergy/AdvReac Type Severity Reaction Status Date / Time No Known Allergies Allergy Verified 06/05/22 13:19 Physical Examination - Hip right Gait: antalgic Tenderness with palpation: anterior Pain with motion: internal rotation and hip flexion ROM: flexion: 70 degrees ROM: internal rotation: 0 degrees (With pain) ROM: external rotation: 50 degrees Crepitus with motion: Yes Strength: extension: 5/5 Strength: flexion: 5/5 Strength: abduction: 5/5 Tests: impingement tests: positive Results The patient is a well-developed well-nourished male proximally 5 foot 10, 265 pounds of endomorphic habitus. EENT exam is nonfocal, neck is supple. He is nontender about the lumbar spine. Straight leg raise is negative in the right lower extremity. His distal neurovascular appears intact in the right lower extremity. - Diagnostic results Hip x-ray: image reviewed (2 views of the right hip obtaining office show severe right hip osteoarthrosis with [id number] changes and subchondral sclerosis.) Assessment and Plan Assessment: Right hip severe osteoarthrosis Plan: I talked with the patient went regarding his condition along with treatment options. At this point is quite limited because of pain related to his osteoarthrosis despite previous conservative measures. After thorough discussion he opted to proceed with surgery. We will plan to proceed with right total hip arthroplasty utilizing a lateral approach. We will institute DVT prophylaxis postoperatively.
[~2022-06-10 08:30] MED LIST changes: +DEXAMETHASONE SOD PHOSPHATE 4 MG/ML 1 ML VIAL IV ONE; +LIDOCAINE 1% (10MG/ML) FOR IV START INTRADERMA PRN; +ONDANSETRON 4 MG/2 ML VIAL IVP ONE; -TRANEXAMIC ACID 1,000 MG in SODIUM CHLORIDE 0.9% 100 ML IVPB PRN; +TRANEXAMIC ACID IN NACL,ISO-OS 1,000 MG in SALINE 1 100ML.BAG IVPB PRN; -ceFAZolin 3 GM in SODIUM CHLORIDE 0.9% 100 ML IVPB PRN
[2022-06-10] MEDS: LACTATED RINGERS 1,000 ML IV SCH (09:44)
[2022-06-10] MEDS ORDERED: MIDAZOLAM 2 MG/2 ML VIAL IVP ONE (10:26)
[2022-06-10] MEDS ORDERED: fentaNYL (PF) 50 MCG/1 ML VIAL IVP ONE (10:26)
[2022-06-10] MEDS ORDERED: PHENYLEPHRINE-0.9% NACL SYG 1,000 MCG/10 ML SYRINGE ONE (10:55)
[2022-06-10] MEDS ORDERED: fentaNYL (PF) 50 MCG/ML 2 ML AMP ONE (10:55)
[2022-06-10] MEDS ORDERED: MIDAZOLAM 2 MG/2 ML VIAL ONE (10:55)
[2022-06-10] MEDS ORDERED: TRANEXAMIC ACID IN NACL,ISO-OS 1,000 MG/100 ML BAG ONE (10:55)
[2022-06-10] MEDS ORDERED: diphenhydrAMINE 50 MG/ML 1 ML VIAL ONE (10:55)
[2022-06-10] MEDS ORDERED: LIDOCAINE 2% INJ 20 MG/ML (2 ML VIAL) ONE (10:55)
[2022-06-10] MEDS ORDERED: PROPOFOL 10 MG/ML 20 ML VIAL IV ONE (10:55)
[2022-06-10] MEDS ORDERED: KETAMINE 10 MG/ML 20 ML VIAL ONE (10:55)
--- NOTE | 2022-06-10 11:10 | P.ANPRN ---
Procedure Note - Anesthesia - Nerve Block Performed Right Erector Spinae Time Out Performed: Yes Date of Procedure: 06/10/22 Location of Patient: PreOp Indication: Acute Post-Operative Pain, Requested by Surgeon Sedation Type: Sedate with meaningful contact maintained Preparation: Sterile Prep, Sterile Dressing Position: Prone Needle Types: Pajunk Needle Gauge: 21 Ultrasound used to visualize needle placement: Yes Ultrasound used to observe medication spread: Yes Injectate: 0.5% Ropivacaine (see comment for volume) (30) Blood Aspirated: No Pain Paresthesia on Injection Noted: No Resistance on Injection: Normal Image Stored and Saved: Yes Events: Uneventful and Well Tolerated
[2022-06-10] MEDS ORDERED: ceFAZolin 3,000 MG in SODIUM CHLORIDE 0.9% IRRIGATIO 3,000 ML IRRIGATION ONE (11:41)
[2022-06-10] MEDS ORDERED: LACTATED RINGERS 1,000 ML IV ONE ×2 (11:41→12:56)
[2022-06-10] MEDS ORDERED: HYDROmorphone 0.5 MG/0.5 ML SYRINGE IVP PRN (12:48)
[2022-06-10] MEDS ORDERED: HYDROcodone/APAP 5-325MG 1 EACH TAB PO PRN (12:48)
[2022-06-10] MEDS ORDERED: NALOXONE 0.4 MG/ML 1 ML VIAL IV PRN (12:48)
[2022-06-10] MEDS ORDERED: MAGNESIUM HYDROXIDE 2,400 MG/10 ML CUP PO PRN (12:48)
--- NOTE | 2022-06-10 13:11 | P.OP ---
Date of Procedure: 06/10/22 Preoperative Diagnosis: Right hip severe osteoarthrosis Postoperative Diagnosis: Same Procedure(s) Performed: Right total hip arthroplastypress-fitlateral approach Implants: Depuy Corail size 14 125 high offset press-fit collared femoral stem, 36+5 cobalt chrome femoral head, 62 mm [place] acetabular shell with neutral polyethylene liner. Anesthesia: spinal Surgeon: Mikael Beltran Human Resources Office Assistant #1: Peyman Hutchinson Estimated Blood Loss (ml): 250 Pathology: other (Femoral head) Condition: stable Disposition: PACU Indications for Procedure: The patient's a 77-year-old male presents with progressive right hip pain secondary to osteoarthrosis despite conservative measures. A discussion of the risks and benefits of operative intervention versus continued conservative measures was made with the patient. He opted to proceed with surgery. Operative risks to include infection, neurovascular injury, development of blood clots, fracture, leg length discrepancy, possible instability, possible component loosening/failure and need for subsequent procedures was discussed. Informed consent was obtained. Operative Findings: As below Description of Procedure: The patient was brought to the operating room, and after induction of spinal anesthesia was placed in a lateral decubitus position. The bony prominences were appropriately padded. The pelvis was stable perpendicular to the floor with a pegboard. The right lower extremity was prepped and draped in normal fashion. A 12 cm incision was then made centered over the greater trochanter extending superiorly to level the ASIS and distally in line with the femoral shaft. The skin and subcutaneous tissues were divided sharply. Electrocautery was used for hemostasis. The fascia annabelle and gluteus kaylin fascia was split in line with the skin incision. The muscle fibers were bluntly dissected proximally. A self-retaining retractor was placed. The anterior and posterior margins of the gluteus medius muscles identified and the anterior two thirds was detached from the greater trochanter with electrocautery. The gluteus minimus tendon was identified and detached in a similar fashion. A wide capsulotomy was performed. The femoral neck fracture was identified in the lower neck cut was made approximately 1 1/2 cm above the level of the lesser trochanter with a sagittal saw at a 45 the shaft. The head was then extracted with a corkscrew. Attention was then paid towards preparing the acetabular. Anterior and posterior retractors were placed. The remaining capsular labral tissues debrided sharply clearly defining the acetabular margins. I began reaming with a 53 mm reamer taking care to initially medialize, then reaming at 45 of abduction and 20 of anteversion. Sequential reaming is performed up to 61 mm. This was down to bleeding bony surface. A trial 62 mm acetabular shell was inserted at 45 of abduction and 20 of anteversion. This was fully seated. There was good rim fit and stability. A neutral polyethylene liner was then impacted. Care taken to avoid any soft tissue interposition. Attention was then paid towards preparing the proximal femur. A box chisel was used to open the metaphyseal region. A canal finder was used to find the femoral canal. Sequential broaching was performed up to a size 14. This is placed in 15 of anteversion with the leg perpendicular floor judging off the trans-epicondylar axis. There is good rotational stability. A calcar mill was used to fashion the medial calcar. A trial 125 high offset neck along with a 36 mm + 5 trial h ead was placed. The hip was gently reduced. It was taken through range of motion. I felt to be stable in flexion and extension with internal and external rotation. I felt there was adequate orthodoxy of soft tissue tension. The hip was gently dislocated. The trial components removed. Pulsatile lavage was utilized. The final size 14 125 high offset collared femoral stem was inserted again with the leg perpendicular to the floor in 15 of anteversion. Again there was good rotational stability. A 36 mm +5 cobalt chrome femoral head was gently impacted. The hip was gently reduced. Again it was taken through motion and felt to be stable in flexion and extension with internal and external rotation. Pulsatile lavage was again utilized. With the leg in abduction the gluteus minimus and medius tendons reattached to the greater trochanter with #2 Ethibond suture. There was minimal drainage therefore a deep drain was not placed. The fascia annabelle and gluteus kaylin fascia was closed with #2 Ethibond suture. The subcutaneous tissues were reapproximated interrupted 2-0 Vicryl sutures. The skin was reapproximated with 3-0 subcuticular strata fix suture. Skin tape and adhesive was applied. A sterile dressing was applied. The patient was awoken from sedation and transferred to recovery room in good condition. Blood loss was estimated 250 mL. No complications were incurred. Sponge and needle counts were correct in the case. Peyman COMBS assisted during the major composes case to include exposure, implantation, and closure.
[2022-06-10] MEDS: HYDROmorphone 0.5 MG/0.5 ML SYRINGE IVP PRN ×5 (13:33→20:17)
--- NOTE | 2022-06-10 13:35 | XR ---
EXAMINATION TYPE: XR Hip Limited RT DATE OF EXAM: 06/10/2022 COMPARISON: NONE HISTORY: Postop TECHNIQUE: One view submitted. FINDINGS: There is postsurgical change in near anatomic alignment. There is soft tissue edema and emphysema. IMPRESSION: 1. Postoperative change. Appears in near-anatomic alignment.
[2022-06-10] MEDS: HYDROcodone/APAP 7.5-325MG 1 EACH TAB PO PRN ×2 (17:11→22:51)
--- NOTE | 2022-06-10 17:19 | P.CONS ---
History of Present Illness - Reason for Consult Consult date: 06/10/22 med management - History of Present Illness Patient is a 77-year-old male with history of hypertension, dyslipidemia presenting for elective right total hip arthroplasty for severe right hip osteoarthrosis. [facility] has been consulted for medical management. Patient denies any chest pain, shortness of breath, abdominal pain, palpitations, lightheadedness, diarrhea, constipation, or urinary symptoms. Patient denies any smoking, or drug use. He does drink about 1/2 case of beer per week. Never had any withdrawals. He does not drink daily. Patient seen and examined at bedside. Pertinent positives and negatives as discussed in HPI, a complete review of systems was performed and all other systems are negative. Vital signs reviewed General: nontoxic, no distress, appears at stated age, obese Derm: warm, dry, dressing clean, dry, and intact Head: atraumatic, normocephalic, symmetric Eyes: EOMI, no lid lag, anicteric sclera, pupils equal round reactive to light ENT: Nose and ears atraumatic Neck: No thyromegaly, supple Mouth: no lip lesion, mucus membranes moist Cardiovascular: S1S2 reg, no murmur, no edema Lungs: clear to auscultation bilateral, no rhonchi, no rales, no wheeze, no accessory muscle use Abdominal: soft, nontender to palpation, no guarding, no appreciable organomegaly Ext: no gross muscle atrophy, muscle strength muscle strength 5 out of 5 in all 4 extremities, no contractures Neuro: CN II-XII grossly intact Psych: Alert, oriented, appropriate affect Assessment/Plan: Severe right hip osteoarthrosis Status post right total hip arthroplasty -Management per orthopedic surgery including DVT prophylaxis and pain management -PT/OT Chronic medical problems: Hypertension Dyslipidemia Depression Obesity -Resumed home medications Thank you for allowing us to participate in the care of this pleasant patient. Do not hesitate to contact us with questions. Someone can be reached from the [facility] hospitalist group all hours of the day at [phone] or via [employer]. 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 Pain in neck, DDD. History of Any Multi-Drug Resistant Organisms: None Reported Past Surgical History: Cholecystectomy, Joint Replacement, Orthopedic Surgery Additional Past Surgical History / Comment(s): Bilateral knee replacement, Rt Achilles tendon surgery. Mole removed from back with scab, cataract surgery, t umor maligant growth removed on the back, pain procedures. Past Anesthesia/Blood Transfusion Reactions: No Reported Reaction Past Psychological History: Depression, PTSD Smoking Status: Former smoker Past Alcohol Use History: Occasional Additional Past Alcohol Use History / Comment(s): Quit smoking APPRO 1981, smoked 1 PPD x 20 yrs. Past Drug Use History: None Reported - Past Family History Father Family Medical History: Blood Disorder, Cancer Additional Family Medical History / Comment(s): Skin, colon cancer. Mother Family Medical History: Cancer Additional Family Medical History / Comment(s): Kidney, stomach cancer. Medications and Allergies Home Medications Medication Instructions Recorded Confirmed Type Citalopram Hydrobromide [CeleXA] 40 mg PO HS 06/23/15 06/05/22 History Cholecalciferol [Vitamin D3 (25 2,000 unit PO DAILY 08/27/15 06/05/22 History Mcg = 1000 Iu)] Simvastatin [Zocor] 20 mg PO HS 03/20/17 06/05/22 History Benazepril HCl 10 mg PO QAM 11/10/18 06/10/22 History amLODIPine [Norvasc] 2.5 mg PO QAM 11/10/18 06/10/22 History Cholecalciferol [Vitamin D3 (25 1 tab PO DAILY 06/05/22 06/05/22 History Mcg = 1000 Iu)] Multivitamins, Thera [Multivitamin 1 tab PO DAILY 06/05/22 06/05/22 History (formulary)] Allergies Allergy/AdvReac Type Severity Reaction Status Date / Time No Known Allergies Allergy Verified 06/10/22 09:14 Physical Exam Vitals: Vital Signs Temp Pulse Pulse Resp BP BP BP 06/10/22 17:03 98.8 F 111 H 18 162/94 06/10/22 16:00 106 H 16 149/76 06/10/22 15:30 105 H 16 167/74 06/10/22 15:10 98 16 145/66 06/10/22 14:48 96 16 176/85 06/10/22 14:33 94 16 171/81 06/10/22 14:18 96 16 174/83 06/10/22 14:03 89 16 158/77 06/10/22 13:49 76 16 147/81 06/10/22 13:34 70 16 122/64 06/10/22 13:18 72 16 119/61 06/10/22 13:03 97.0 F L 65 14 91/54 06/10/22 10:40 89 16 152/73 06/10/22 09:30 98.1 F 93 18 157/74 Pulse Ox 06/10/22 17:03 96 06/10/22 16:00 93 L 06/10/22 15:30 94 L 06/10/22 15:10 94 L 06/10/22 14:48 95 06/10/22 14:33 94 L 06/10/22 14:18 94 L 06/10/22 14:03 96 06/10/22 13:49 96 06/10/22 13:34 97 06/10/22 13:18 97 06/10/22 13:03 94 L 06/10/22 10:40 95 06/10/22 09:30 95 Intake and Output 06/10/22 06/10/22 06/10/22 06:59 14:59 22:59 Intake Total 2551 Output Total 250 Balance 2301 Intake: IV 2551 Output: Estimated Blood Loss 250 Other: # Voids 1 Weight 120.1 kg 120.1 kg
[2022-06-10] MEDS: ceFAZolin 3 GM in SODIUM CHLORIDE 0.9% 100 ML IVPB SCH (18:11)
[2022-06-10] MEDS ORDERED: CITALOPRAM HYDROBROMIDE 20 MG TAB PO SCH (21:00)
[2022-06-10] MEDS ORDERED: SENNOSIDES-DOCUSATE SODIUM 1 EACH TAB PO SCH (21:00)
[2022-06-10] MEDS ORDERED: ATORVASTATIN 10 MG TAB PO SCH (21:00)
[2022-06-11] MEDS: HYDROmorphone 0.5 MG/0.5 ML SYRINGE IVP PRN ×2 (01:05→06:38)
[2022-06-11] MEDS: ceFAZolin 3 GM in SODIUM CHLORIDE 0.9% 100 ML IVPB SCH (01:06)
[2022-06-11] MEDS: HYDROcodone/APAP 7.5-325MG 1 EACH TAB PO PRN ×3 (04:14→13:00)
[2022-06-11] MEDS: LACTATED RINGERS 1,000 ML IV SCH (04:55)
[2022-06-11 07:32] VITALS: BP 149/70; PULSE 116; RESP 18; TEMP 99.3
[2022-06-11] MEDS ORDERED: CHOLECALCIFEROL 25 MCG (1000 IU) TABLET PO SCH ×2 (09:00)
[2022-06-11] MEDS ORDERED: amLODIPine 2.5 MG TAB PO SCH (09:00)
[2022-06-11] MEDS ORDERED: lisinopriL 10 MG TAB PO SCH (09:00)
[2022-06-11] MEDS ORDERED: MULTIVITAMINS, THERA 1 EACH TAB PO SCH (09:00)
[2022-06-11] MEDS ORDERED: RIVAROXABAN 10 MG TAB PO SCH (09:00)
[2022-06-11 09:31] LABS: Basophils # (A) 0.02 X 10*3/uL (0.00-0.10); Basophils % (A) 0.2 %; Eosinophils # (A) 0 X 10*3/uL (0.04-0.35); Eosinophils % (A) 0 %; HCT 36.4 % (39.6-50.0); HGB 11.9 g/dL (13.0-17.0); Immature Grans, Automated 0.4 %; Lymphocytes % (A) 8.5 %; MCH 28.7 pg (27.0-32.0); MCHC 32.7 g/dL (32.0-37.0); MCV 87.7 fL (80.0-97.0); Mean Platelet Volume 10.8 fL (9.5-12.2); Monocytes # (A) 1.25 X 10*3/uL (0.20-1.00); Monocytes % (A) 10.7 %; NRBC Per 100 WBC 0 /100 WBCS (0.0-0.0); Neutrophils % (A) 80.2 %; Platelet Count 259 X 10*3/uL (140-440); RBC 4.15 X 10*6/uL (4.40-5.60); RDW 13.9 % (11.5-14.5); WBC 11.72 X 10*3/uL (4.50-10.00)
--- NOTE | 2022-06-11 10:49 | P.PN ---
Subjective Progress Note Date: 06/11/22 Principal diagnosis: Status post right total hip arthroplasty, lateral approach Patient is examined today at bedside, he is resting in his hospital chair. He has been up ambulating along with using the restroom with no difficulties. He does have some discomfort throughout the right lower extremity, he feels the pain medication could be a little bit stronger. Currently has no headaches, lightheadedness, chest pain or shortness of breath. Objective - Vital Signs Vital signs: Vital Signs Temp 99.3 F 06/11/22 07:30 Pulse 116 H 06/11/22 07:30 Resp 18 06/11/22 07:30 BP 149/70 06/11/22 07:30 Pulse Ox 91 L 06/11/22 07:30 FiO2 Intake & Output 06/10/22 06/11/22 06/11/22 18:59 06:59 18:59 Intake Total 2551 Output Total 250 Balance 2301 Weight 120.1 kg Intake: IV 2551 Output: Estimated Blood Loss 250 Other: Voiding Method Toilet # Voids 1 - Exam Right lower extremity: Incision is clean, dry, and intact. The exofin fusion tape is in good condition. There is minimal soft tissue swelling and ecchymosis surrounding the medial and lateral aspects of the incision. Calf is soft, no tenderness with palpation. Plantar flexion, dorsiflexion, EHL, FHL are intact. Sensory exam to light touch throughout the extremity is intact, dorsal pedis pulses 2+. - Labs CBC & Chem 7: 06/11/22 04:05 Labs: Abnormal Lab Results - Last 24 Hours (Table) 06/11/22 Range/Units 04:05 WBC 11.72 H (4.50-10.00) X 10*3/uL RBC 4.15 L (4.40-5.60) X 10*6/uL Hgb 11.9 L (13.0-17.0) g/dL Hct 36.4 L (39.6-50.0) % Immature Gran # 0.05 H (0.00-0.04) X 10*3/uL Neutrophils # 9.40 H (1.80-7.70) X 10*3/uL Monocytes # 1.25 H (0.20-1.00) X 10*3/uL Eosinophils # 0 L (0.04-0.35) X 10*3/uL Assessment and Plan Assessment: Postoperative day #1 status post right total hip arthroplasty, lateral Plan: Pain control, will plan to discharge home on [place] 10 mg/325 mg DVT prophylaxis, Eliquis 2.5mg bid for 28 days Wound care instructions discussed, this including both showering and dressing changes Home physical therapy/nursing Medical recommendations Discharge planning: Plan for discharge home today Time with Patient: Less than 30
--- NOTE | 2022-06-11 10:54 | P.DS ---
Providers Date of admission: 06/11/22 07:25 Expected date of discharge: 06/11/22 Attending physician: Mikael Beltran Consults: 06/10/22 12:50 Consult Physician Routine Consulting Provider: Hazel Bonner Consult Reason/Comments: Medical Management s/p RTHA Do you want consulting provider notified?: Yes Primary care physician: Mahamed Hunter Hospital Course: Date of admission: 06/10/2022 Date of discharge: 06/11/2022 Admission diagnosis: Status post right total hip arthroplasty, lateral approach Discharge diagnosis: Same Attending physician: Dr. Beltran Surgical procedures: Right total hip arthroplasty lateral approach Brief history: Patient is a 77-year-old male with a history of progressive primary right hip osteoarthritis. At this point patient has failed conservative treatment measures and has opted to proceed with a elective right total hip arthroplasty lateral approach. Hospital course: Details of patient's surgery can be found in operative report. Patient tolerated the procedure well and was subsequently transported to orthopedic floor. Patient's orthopeidc and medical care was provided daily. Patient had daily laboratory tests performed for evaluation of overall blood counts. Patient had daily physical therapy to include strengthening range of motion as well as education with walker ambulation. Patient was treated with Xarelto for their postoperative DVT prophylaxis during their inpatient stay. Patient was noted to have a relatively uneventful postoperative course. Patient reported satisfactory pain control with oral pain medications by postoperative day 0. Patient showed satisfactory progress with physical therapy. Patient moved steadily through the program and had no difficulty meeting the goals by postoperative day 1. Given patient's otherwise satisfactory course and having met physical therapy goals, plan is to discharge patient home on postoperative day 1. Discharge condition/disposition: Patient will be discharged home in stable condition. Discharge medications: Instructions are given on resumption of patient's normal daily medications per primary care recommendation, in addition patient will be prescribed [place] 10 mg/325 mg, Eliquis 2.5mg, senna S. Discharge instructions: 1. Wound care and infection precautions, keep incision dry and covered while showering, no lotions, creams, moisturizers. No soaking, tubs, pools, hottubs. Do not scrub over the incision. 2. Weight-bear as tolerated with walker / cane until follow-up. 3. Ice and elevate when necessary. Do not exceed 20 minutes per hour with ice pack. 4. Utilize compression sleeve until seen at first follow up appointment. 5. Visiting nursing care. 6. Home physical therapy. 7. Pain meds and anticoagulants per prescription. 8. Pain medication has potential to cause constipation. Increase oral fluid and fiber intake. Contact primary care provider if you have not had a bowel movement within 48 hours after discharge 9. No anti-inflammatory medication until discussed at first post operative visit, this including Motrin, Aleve, Mobic, Diclofenac. 10. Follow up in office at 2 weeks postop with Dexter Raines PA-C/Peyman Blood 11. Follow up with your primary care doctor 7-10 days after discharge. 12. Contact [facility] with any questions, . Procedures: Right total hip arthroplasty, lateral approach Patient Condition at Discharge: Good Plan - Discharge Summary Discharge Rx Participant: Yes New Discharge Prescriptions: New Apixaban [Eliquis] 2.5 mg PO BID #60 tab HYDROcodone/APAP 10-325MG [[place] 10-325] 1 tab PO Q4H PRN 7 Days #42 tab PRN Reason: Pain Sennosides/Docusate Sodium [Senna-S 8.6-50 mg Tablet] 1 each PO DAILY PRN #30 tablet PRN Reason: Constipation Continue Citalopram Hydrobromide [CeleXA] 40 mg PO HS Cholecalciferol [Vitamin D3 (25 Mcg = 1000 Iu)] 2,000 unit PO DAILY Simvastatin [Zocor] 20 mg PO HS amLODIPine [Norvasc] 2.5 mg PO QAM Benazepril HCl 10 mg PO QAM Multivitamins, Thera [Multivitamin (formulary)] 1 tab PO DAILY Discontinued Cholecalciferol [Vitamin D3 (25 Mcg = 1000 Iu)] 1 tab PO DAILY Discharge Medication List Citalopram Hydrobromide [CeleXA] 40 mg PO HS 06/23/15 [History] Cholecalciferol [Vitamin D3 (25 Mcg = 1000 Iu)] 2,000 unit PO DAILY 08/27/15 [History] Simvastatin [Zocor] 20 mg PO HS 03/20/17 [History] Benazepril HCl 10 mg PO QAM 11/10/18 [History] amLODIPine [Norvasc] 2.5 mg PO QAM 11/10/18 [History] Multivitamins, Thera [Multivitamin (formulary)] 1 tab PO DAILY 06/05/22 [History] Apixaban [Eliquis] 2.5 mg PO BID #60 tab 06/11/22 [Rx] HYDROcodone/APAP 10-325MG [[place] 10-325] 1 tab PO Q4H PRN 7 Days #42 tab 06/11/22 [Rx] Sennosides/Docusate Sodium [Senna-S 8.6-50 mg Tablet] 1 each PO DAILY PRN #30 tablet 06/11/22 [Rx] Follow up Appointment(s)/Referral(s): Peyman Hutchinson, ELIZABETH [PHYSICIAN STORE SALES LEADER] - 2 Weeks [facility], [NON-STAFF] - 1-2 Days ([facility] will call you to schedule your in home nursing and physical therapy visits. ) Patient Instructions/Handouts: Sleep Apnea (GEN), Total Hip Replacement (DC) Activity/Diet/Wound Care/Special Instructions: Orthopedic Discharge Instructions: 1. Wound care and infection precautions, keep incision dry and covered while showering, no lotions, creams, moisturizers. No soaking, pools, hot tubs. Do not scrub over incision. 2. Weight-bear as tolerated with walker / cane until follow-up. 3. Ice and elevate when necessary. Do not exceed 20 minutes per hour with ice pack. 4. Utilize compression sleeve until seen at first follow up appointment. 5. Pain meds and anticoagulants per prescription. 6. Pain medication has potential to cause constipation. Increase oral fluid and fiber intake. Contact primary care provider if you have not had a bowel movement within 48 hours after discharge. 7. No anti-inflammatory medication until discussed at first post operative visit, this including Motrin, Aleve, Mobic, Diclofenac. 8. Follow up in office at 2 weeks postop with Dexter Raines PA-C / Peyman Hutchinson PA-C 9. Follow up with your primary care doctor 7-10 days after discharge. 10. Contact [facility] with any questions, . Keep incision clean, dry, intact. While showering, cover mesh tape with Saran wrap. Keep mesh tape on until follow-up appointment in office in 2 weeks. Please see your PCP as soon as possible for sleep study. Discharge Disposition: HOME WITH HOME HEALTH SERVICES
--- NOTE | 2022-06-11 11:36 | P.PN ---
Subjective Progress Note Date: 06/11/22 Principal diagnosis: med management Subjective: Patient seen and examined at bedside. No acute events overnight. He claims that she has minimal pain in her right hip. She denies any chest pain, shortness of breath, abdominal pain, nausea, vomiting, diarrhea, constipation, or urinary complaints. Pertinent positives and negatives as discussed above, a complete review of systems was performed and all other systems are negative. Vitals Signs Reviewed. General: nontoxic, no distress, appears at stated age, obese Derm: warm, dry, dressing clean, dry, and intact Head: atraumatic, normocephalic, symmetric Eyes: EOMI, no lid lag, anicteric sclera, pupils equal round reactive to light ENT: Nose and ears atraumatic Neck: No thyromegaly, supple Mouth: no lip lesion, mucus membranes moist Cardiovascular: S1S2 reg, no murmur, no edema Lungs: clear to auscultation bilateral, no rhonchi, no rales, no wheeze, no accessory muscle use Abdominal: soft, nontender to palpation, no guarding, no appreciable organomegaly Ext: no gross muscle atrophy, muscle strength muscle strength 5 out of 5 in all 4 extremities, no contractures Neuro: CN II-XII grossly intact Psych: Alert, oriented, appropriate affect Assessment and Plan: Severe right hip osteoarthrosis Status post right total hip arthroplasty -Management per orthopedic surgery including DVT prophylaxis and pain management -PT/OT Chronic medical problems: Hypertension Dyslipidemia Depression Obesity -Resumed home medications possibly has sleep apnea. patient advised to inquire about sleep study as an outpatient. Patient is medically optimized for discharge home. Thank you for allowing us to participate in the care of this pleasant patient. Do not hesitate to contact us with questions. Someone can be reached from the [facility] hospitalist group all hours of the day at [phone] or via [employer]. Objective - Vital Signs Vital signs: Vital Signs Temp 99.3 F 06/11/22 07:30 Pulse 116 H 06/11/22 07:30 Resp 18 06/11/22 07:30 BP 149/70 06/11/22 07:30 Pulse Ox 91 L 06/11/22 07:30 FiO2 Intake & Output 06/10/22 06/11/22 06/11/22 18:59 06:59 18:59 Intake Total 2551 Output Total 250 Balance 2301 Weight 120.1 kg Intake: IV 2551 Output: Estimated Blood Loss 250 Other: Voiding Method Toilet # Voids 1 - Labs CBC & Chem 7: 06/11/22 04:05 Labs: Abnormal Lab Results - Last 24 Hours (Table) 06/11/22 Range/Units 04:05 WBC 11.72 H (4.50-10.00) X 10*3/uL RBC 4.15 L (4.40-5.60) X 10*6/uL Hgb 11.9 L (13.0-17.0) g/dL Hct 36.4 L (39.6-50.0) % Immature Gran # 0.05 H (0.00-0.04) X 10*3/uL Neutrophils # 9.40 H (1.80-7.70) X 10*3/uL Monocytes # 1.25 H (0.20-1.00) X 10*3/uL Eosinophils # 0 L (0.04-0.35) X 10*3/uL
== END 2022-06-11 13:35 | disposition home health service (06) ==
LOC: OR 08:30 → 4SSUR 13:00 → OR 06-11 07:25
PROVIDERS: ADMIT Orthopaedic Surgery; ATTEND Orthopaedic Surgery
DX: M16.11 Unilateral primary osteoarthritis, right hip (principal); G89.18 Other acute postprocedural pain; I10 Essential (primary) hypertension; E78.5 Hyperlipidemia, unspecified; M50.30 Other cervical disc degeneration, unspecified cervical region; M87.851 Other osteonecrosis, right femur; E66.9 Obesity, unspecified; F32.A Depression, unspecified; F43.10 Post-traumatic stress disorder, unspecified; Z85.820 Personal history of malignant melanoma of skin; Z90.49 Acquired absence of other specified parts of digestive tract; Z96.653 Presence of artificial knee joint, bilateral; Z96.612 Presence of left artificial shoulder joint; Z96.611 Presence of right artificial shoulder joint; Z87.891 Personal history of nicotine dependence; Z80.0 Family history of malignant neoplasm of digestive organs; Z80.8 Family history of malignant neoplasm of other organs or systems; Z80.51 Family history of malignant neoplasm of kidney; Z79.899 Other long term (current) drug therapy; Z98.49 Cataract extraction status, unspecified eye; Z68.36 Body mass index [BMI] 36.0-36.9, adult
CPT/HCPCS: 27130; 97161; 97535; 97166; 86900; 86901; 88305; 85025; 86850; 88311; 73501; G0378; C1776; J2250; J1200; J1100; J0690 ×3; J2405; J3010 ×2; J2370; J2704; J1170 ×2; J2001

== ENCOUNTER 2022-09-09 10:16 | Day surgery (SDC) | payer MEDICARE ==
[2022-09-04 17:08] VITALS: BMI 35.2
[~2022-09-09 10:16] MED LIST changes: -ACETAMINOPHEN TAB 500 MG TAB PO PRN; -DEXAMETHASONE SOD PHOSPHATE 4 MG/ML 1 ML VIAL IV ONE; +LACTATED RINGERS 1,000 ML IV SCH; -LIDOCAINE 1% (10MG/ML) FOR IV START INTRADERMA PRN; -MELOXICAM 7.5 MG TAB PO PRN; -ONDANSETRON 4 MG/2 ML VIAL IVP ONE; -TRANEXAMIC ACID IN NACL,ISO-OS 1,000 MG in SALINE 1 100ML.BAG IVPB PRN
[2022-09-09 10:49] VITALS: TEMP 97.4
[2022-09-09] MEDS ORDERED: PROPOFOL 10 MG/ML 20 ML VIAL IV ONE (12:14)
--- NOTE | 2022-09-09 12:29 | P.PCN ---
Date of Procedure: 09/09/22 Procedure(s) Performed: BRIEF HISTORY: Patient is a 77-year-old pleasant white male scheduled for an elective colonoscopy as a part of screening for colon cancer and family history of colon cancer. His mother was diagnosed with colon cancer at age 70 and his father was diagnosed with colon cancer at age 74 PROCEDURE PERFORMED: Colonoscopy. PREOPERATIVE DIAGNOSIS: Screening for colon cancer/family history of colon cancer IV sedation per Anesthesia. PROCEDURE: After informed consent was obtained, the patient, was brought into the endoscopy unit. IV sedation was administered by Anesthesia under continuous monitoring. Digital rectal examination was normal. Initially the Olympus CF-160 flexible video colonoscope was then inserted in the rectum, gradually advanced into the cecum without any difficulty. Careful examination was performed as the scope was gradually being withdrawn. Ileocecal valve and the appendiceal orifice were visualized and appeared normal. Prep was excellent. Mucosa of the cecum, ascending colon, transverse colon, descending colon, sigmoid colon, and rectum appeared normal. Scattered sigmoid diverticulosis Retroflexion was performed in the rectum and no lesions were seen. The patient tolerated the procedure well. IMPRESSION: Normal-appearing colon from rectum to cecum no evidence of colorectal neoplasia. Scattered sigmoid diverticulosis. RECOMMENDATIONS: Findings of this examination were discussed with the patient as well as his family.. He was advised to have a repeat screening colonoscopy every 5 years because of the family history of colon cancer
[2022-09-09 12:57] VITALS: BP 132/72; PULSE 78; RESP 18
== END 2022-09-09 13:13 | disposition home or self-care (01) ==
LOC: ORWHC2ENDO 10:16
PROVIDERS: ATTEND Internal Medicine Gastroenterology
DX: Z12.11 Encounter for screening for malignant neoplasm of colon (principal); K57.30 Diverticulosis of large intestine without perforation or abscess without bleeding; Z80.0 Family history of malignant neoplasm of digestive organs; I10 Essential (primary) hypertension; M19.90 Unspecified osteoarthritis, unspecified site; Z96.641 Presence of right artificial hip joint; Z90.49 Acquired absence of other specified parts of digestive tract; Z98.890 Other specified postprocedural states
CPT/HCPCS: G0121; J2704; 45378

== ENCOUNTER 2023-04-10 11:49 | Emergency (ER) | payer MEDICARE ==
--- NOTE | 2023-04-10 12:09 | ED ---
General Adult HPI - General Chief complaint: Wound/Laceration Stated complaint: arm laceration Time Seen by Provider: 04/10/23 12:02 Source: patient, RN notes reviewed Mode of arrival: ambulatory Limitations: no limitations - History of Present Illness Initial comments: 77-year-old male presents to the emergency department chief complaint of right forearm laceration. He states that he was working with his son when a piece of plastic kicked back and arm causing a skin tear back. He reports appropriate range of motion in his fingers, wrist, elbow. His last tetanus vaccination was in January 2019. - Related Data Home Medications Medication Instructions Recorded Confirmed Citalopram Hydrobromide [CeleXA] 40 mg PO HS 06/23/15 09/04/22 Cholecalciferol [Vitamin D3 (25 2,000 unit PO DAILY 08/27/15 09/04/22 Mcg = 1000 Iu)] Simvastatin [Zocor] 20 mg PO HS 03/20/17 09/04/22 Benazepril HCl 10 mg PO QAM 11/10/18 09/04/22 amLODIPine [Norvasc] 2.5 mg PO QAM 11/10/18 09/04/22 Multivitamins, Thera [Multivitamin 1 tab PO DAILY 06/05/22 09/04/22 (formulary)] Magnesium Oxide [Mag-Ox] 400 mg PO DAILY 09/04/22 09/04/22 Vitamin K2 100 mcg PO DAILY 09/04/22 09/04/22 Allergies Allergy/AdvReac Type Severity Reaction Status Date / Time No Known Allergies Allergy Verified 04/10/23 11:59 Review of Systems ROS Statement: Those systems with pertinent positive or pertinent negative responses have been documented in the HPI. ROS Other: All systems not noted in ROS Statement are negative. 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 Pain in neck, DDD. History of Any Multi-Drug Resistant Organisms: None Reported Past Surgical History: Cholecystectomy, Joint Replacement, Orthopedic Surgery Additional Past Surgical History / Comment(s): Bilateral knee replacement, Rt Achilles tendon surgery. Mole removed from back with scab, cataract surgery, tumor maligant growth removed on the back, pain procedures. RT DOMINIQUE, COLONOSCOPY Past Anesthesia/Blood Transfusion Reactions: No Reported Reaction Past Psychological History: Depression, PTSD Smoking Status: Former smoker - Past Family History Father Family Medical History: Blood Disorder, Cancer Additional Family Medical History / Comment(s): Skin, colon cancer. Mother Family Medical History: Cancer Additional Family Medical History / Comment(s): Kidney, stomach cancer. General Exam Limitations: no limitations General appearance: alert, in no apparent distress Head exam: Present: atraumatic, normocephalic, normal inspection Eye exam: Present: normal appearance Respiratory exam: Present: normal lung sounds bilaterally. Absent: respiratory distress, wheezes, rales, rhonchi, stridor Cardiovascular Exam: Present: regular rate, normal rhythm, normal heart sounds. Absent: systolic murmur, diastolic murmur, rubs, gallop, clicks Extremities exam: Present: full ROM, normal capillary refill, other (Laceration to right anterior forearm, radial pulses 2+, 5/5 strength in upper extremities). Absent: tenderness, pedal edema, joint swelling, calf tenderness Neurological exam: Present: alert, oriented X3 Psychiatric exam: Present: normal affect, normal mood Skin exam: Present: warm, dry, normal color, other (laceration to right anterior forearm) Course Vital Signs 04/10/23 11:56 Temperature 98.5 F Pulse Rate 85 Respiratory 16 Rate Blood Pressure 156/89 O2 Sat by Pulse 93 L Oximetry Procedures - Laceration Laceration #1 Consent Obtained: verbal consent Indication: laceration Site: upper extremity Size (cm): 5 Description: flap Depth: simple, single layer Anesthetic Used: lidocaine 1% Anesthesia Technique: local infiltration Pre-repair: wound explored Type of Sutures: other Size of Sutures: 5-0 Number of Sutures: 8 Technique: simple, interrupted Patient Tolerated Procedure: well, no complications Medical Decision Making - Medical Decision Making Was pt. sent in by a medical professional or institution (, PA, WORK MEASUREMENT ENGINEER, urgent care, hospital, or retirement...) When possible be specific @ -No Did you speak to anyone other than the patient for history (EMS, parent, family, police, friend...)? What history was obtained from this source @ -No Did you review nursing and triage notes (agree or disagree)? Why? @ -I reviewed and agree with nursing and triage notes Were old charts reviewed (outside hosp., previous admission, EMS record, old EKG, old radiological studies, urgent care reports/EKG's, retirement records)? Report findings @ -No old charts were reviewed Differential Diagnosis (chest pain, altered mental status, abdominal pain women, abdominal pain men, vaginal bleeding, weakness, fever, dyspnea, syncope, headache, dizziness, GI bleed, back pain, seizure, CVA, palpatations, mental health, musculoskeletal)? @ -Differential Musculoskeletal Muscular strain, contusion, ligament sprain, fracture, arthritis, septic arthritis, bursitis, cellulitis, muscle spasm, nerve compression, DVT, arterial occlusion, herpes zoster, electrolyte abnormality, tumor.... This is not meant to be in all inclusive list EKG interpreted by me (3pts min.). @ -None X-rays interpreted by me (1pt min.). @ -None done CT interpreted by me (1pt min.). @ -None done U/S interpreted by me (1pt. min.). @ -None done What testing was considered but not performed or refused? (CT, X-rays, U/S, labs)? Why? @ -None What meds were considered but not given or refused? Why? @ -None Did you discuss the management of the patient with other professionals (professionals i.e. , PA, WORK MEASUREMENT ENGINEER, lab, RT, psych nurse, high school social studies tutor, platform worker, teacher, staff weapons officer, disease case manager rn)? Give summary @ -No Was smoking cessation discussed for >3mins.? @ -No Was critical care preformed (if so, how long)? @ -No Were there social determinants of health that impacted care today? How? (Homelessness, low income, unemployed, alcoholism, drug addiction, transportation, low edu. Level, literacy, decrease access to med. care, correction, rehab)? @ -No Was there de-escalation of care discussed even if they declined (Discuss DNR or withdrawal of care, Hospice)? DNR status @ -No What co-morbidities impacted this encounter? (DM, HTN, Smoking, COPD, CAD, Cancer, CVA, ARF, Chemo, Hep., AIDS, mental health diagnosis, sleep apnea, morbid obesity)? @ -None Was patient admitted / discharged? Hospital course, mention meds given and route, prescriptions, significant lab abnormalities, going to OR and other pertinent info. @ -discharged. Patient presented to the emergency department for chief complaint of right forearm laceration that occurred while he was working in his wood shop. Patient NVI, appropriate strength. Wound cleaned with saline. Laceration repaired. Patient up-to-date on his tetanus vaccination. Appropriate suture care and removal time discussed the patient. Patient stable at time of discharged. Case discussed with Dr. Hernandez Undiagnosed new problem with uncertain prognosis? @ -No Drug Therapy requiring intensive monitoring for toxicity (Heparin, Nitro, Insuli n, Cardizem)? @ -No Were any procedures done? @ -Laceration repair Diagnosis/symptom? @ -laceration Acute, or Chronic, or Acute on Chronic? @ -acute Uncomplicated (without systemic symptoms) or Complicated (systemic symptoms)? @ -uncomplicated Side effects of treatment? @ -No Exacerbation, Progression, or Severe Exacerbation? @ -No Poses a threat to life or bodily function? How? (Chest pain, [place], [place], pneumonia, PE, COPD, DKA, ARF, appy, cholecystitis, CVA, Diverticulitis, Homicidal, Suicidal, threat to staff... and all critical care pts) @ -No Disposition Clinical Impression: Laceration Disposition: HOME SELF-CARE Condition: Stable Instructions (If sedation given, give patient instructions): Care For Your Stitches (ED) Additional Instructions: Please have sutures removed in 7-10 days. Follow up with your primary care provider. Return to the emergency department for new or worsening symptoms. Is patient prescribed a controlled substance at d/c from ED?: No Referrals: Mahamed Hunter MD [Primary Care Provider] - 1-2 days
[2023-04-10 12:11] VITALS: BP 156/89; PULSE 85; RESP 16; TEMP 98.5
[2023-04-10] MEDS ORDERED: LIDOCAINE 1% INJ 10MG/ML (20 ML MDV) SQ ONE (12:23)
== END 2023-04-10 13:18 | disposition home or self-care (01) ==
LOC: EC 11:49
DX: S51.811A Laceration without foreign body of right forearm, initial encounter (principal); I10 Essential (primary) hypertension; E78.5 Hyperlipidemia, unspecified; F32.A Depression, unspecified; Z79.899 Other long term (current) drug therapy; Z87.891 Personal history of nicotine dependence; W26.8XXA Contact with other sharp object(s), not elsewhere classified, initial encounter
CPT/HCPCS: 99282; 12002; J2001

== ENCOUNTER 2024-10-12 21:57 | Inpatient (IN) | payer MEDICARE ==
[2024-10-12] MEDS: HYDROmorphone 1 MG/ML 1 ML SYRINGE IVP STA (22:40)
[2024-10-12] MEDS: SODIUM CHLORIDE 0.9% 500 ML 500 ML IV ONE (22:41)
--- NOTE | 2024-10-12 22:45 | ED ---
Abdominal Pain HPI - General Chief Complaint: Abdominal Pain Stated Complaint: Abd pain Time Seen by Provider: 10/12/24 22:44 Source: patient, family ( and daughter), EMS, RN notes reviewed Mode of arrival: EMS Limitations: no limitations - History of Present Illness Initial Comments: 79-year-old male with a past medical history significant of hypertension, hyperlipidemia presenting to the ER via EMS for evaluation of abdominal pain. Patient reports for the past 3 days he has been having a focal sharp right lower quadrant abdominal tenderness. He states it is difficult to move and ambulate given the pain. Patient reports pain is currently a 10 out of 10 which makes him feel dizzy and mildly short of breath given pain. He does admit to nausea and dry heaves but denies emesis. Patient reports no diarrhea and a small bowel movement this morning. He denies any hematochezia or melena. Patient has taken [id number] Tylenol without relief of symptoms. He denies any fevers or chills. No urinary complaints. No scrotal pain or swelling. No back or flank pain. Patient reports a history of a cholecystectomy approximately 30 years ago. Patient received Toradol and 500 cc IV fluids via EMS. He denies any chest pain, shortness of breath or other complaints at this time. - Related Data Home Medications Medication Instructions Recorded Confirmed Citalopram Hydrobromide [CeleXA] 40 mg PO HS 06/23/15 09/04/22 Cholecalciferol [Vitamin D3 (25 2,000 unit PO DAILY 08/27/15 09/04/22 Mcg = 1000 Iu)] Simvastatin [Zocor] 20 mg PO HS 03/20/17 09/04/22 Benazepril HCl 10 mg PO QAM 11/10/18 09/04/22 amLODIPine [Norvasc] 2.5 mg PO QAM 11/10/18 09/04/22 Multivitamins, Thera [Multivitamin 1 tab PO DAILY 06/05/22 09/04/22 (formulary)] Magnesium Oxide [Mag-Ox] 400 mg PO DAILY 09/04/22 09/04/22 Vitamin K2 [Vitamin K-2] 100 mcg PO DAILY 09/04/22 09/04/22 Allergies Allergy/AdvReac Type Severity Reaction Status Date / Time No Known Allergies Allergy Verified 10/12/24 22:20 Review of Systems ROS Statement: Those systems with pertinent positive or pertinent negative responses have been documented in the HPI. ROS Other: All systems not noted in ROS Statement are negative. 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 Pain in neck, DDD. History of Any Multi-Drug Resistant Organisms: None Reported Past Surgical History: Cholecystectomy, Joint Replacement, Orthopedic Surgery Additional Past Surgical History / Comment(s): Bilateral knee replacement, Rt Achilles tendon surgery. Mole removed from back with scab, cataract surgery, tumor maligant growth removed on the back, pain procedures. RT DOMINIQUE, COLONOSCOPY Past Anesthesia/Blood Transfusion Reactions: No Reported Reaction Past Psychological History: Depression, PTSD Smoking Status: Former smoker Past Alcohol Use History: Occasional Past Drug Use History: None Reported - Past Family History Father Family Medical History: Blood Disorder, Cancer Additional Family Medical History / Comment(s): Skin, colon cancer. Mother Family Medical History: Cancer Additional Family Medical History / Comment(s): Kidney, stomach cancer. General Exam Limitations: no limitations General appearance: alert, in no apparent distress Respiratory exam: Present: normal lung sounds bilaterally. Absent: respiratory distress, rales, rhonchi, stridor Cardiovascular Exam: Present: normal rhythm, tachycardia, normal heart sounds GI/Abdominal exam: Present: soft, tenderness (Right lower quadrant), normal bowel sounds Extremities exam: Present: normal inspection, full ROM, normal capillary refill. Absent: tenderness, pedal edema, joint swelling, calf tenderness Neurological exam: Present: alert, oriented X3, CN II-XII intact Skin exam: Present: warm, dry, intact, normal color. Absent: rash Course Vital Signs 10/12/24 10/12/24 22:02 23:17 Temperature 99.6 F Pulse Rate 116 H 116 H Respiratory 18 18 Rate Blood Pressure 166/105 120/76 - Reevaluation(s) Reevaluation #1: 10/13/24 02:[address] Palma, [facility] by my attending, Dr. Briggs for medicine admission I discussed case with Dr. Vinson, special education science teacher general surgery, who accepts consultation. Medical Decision Making - Medical Decision Making Was pt. sent in by a medical professional or institution (Dr., PA, ONLINE AFFILIATE MARKETING MANAGER, urgent care, hospital, or fdc...) When possible be specific @ -No Did you speak to anyone other than the patient for history (EMS, parent, family, police, friend...)? What history was obtained from this source @ -Patient's and daughter, at bedside, aiding in HPI past medical history Did you review nursing and triage notes (agree or disagree)? Why? @ -I reviewed and agree with nursing and triage notes Were old charts reviewed (outside hosp., previous admission, EMS record, old EKG, old radiological studies, urgent care reports/EKG's, fdc records)? Report findings @ -No old charts were reviewed Differential Diagnosis (chest pain, altered mental status, abdominal pain women, abdominal pain men, vaginal bleeding, weakness, fever, dyspnea, syncope, headache, dizziness, GI bleed, back pain, seizure, CVA, palpatations, mental health, musculoskeletal)? @ -Differential Abdominal Pain Men: Appendicitis, cholecystitis, diverticulosis, ischemic bowel, pancreatitis, hepatitis, UTI, gastroenteritis, AAA, incarcerated hernia, bowel obstruction, constipation, inflammatory bowel, hepatitis, peptic ulcer disease, splenic infarction, perforated viscus, testicular torsion, this is not meant to be an all-inclusive list EKG interpreted by me (3pts min.). @ -As above X-rays interpreted by me (1pt min.). @ -None done CT interpreted by me (1pt min.). @ -CT abdomen pelvis showing a dilated appendix measuring 16 mm with surrounding moderate inflammatory changes concerning of appendicitis. No identified perforation or free air. U/S interpreted by me (1pt. min.). @ -None done What testing was considered but not performed or refused? (CT, X-rays, U/S, labs)? Why? @ -None What meds were considered but not given or refused? Why? @ -Toradol was considered but not given as patient received 15 mg IV via EMS. Did you discuss the management of the patient with other professionals (professionals i.e. LAURYN Rojas, ONLINE AFFILIATE MARKETING MANAGER, lab, RT, psych nurse, manager social responsibility, success coach, teacher, staff antisubmarine officer, case packer and sealer)? Give summary @ -Case discussed with on-call general surgery, Dr. Vinson, who accepts consultation. Case discussed by my attending, Dr. Briggs with Sound physician, , for medicine admission. Was smoking cessation discussed for >3mins.? @ -No Was critical care preformed (if so, how long)? @ -No Were there social determinants of health that impacted care today? How? (Homelessness, low income, unemployed, alcoholism, drug addiction, transportation, low edu. Level, literacy, decrease access to med. care, senior care, rehab)? @ -No Was there de-escalation of care discussed even if they declined (Discuss DNR or withdrawal of care, Hospice)? DNR status @ -No What co-morbidities impacted this encounter? (DM, HTN, Smoking, COPD, CAD, Cancer, CVA, ARF, Chemo, Hep., AIDS, mental health diagnosis, sleep apnea, morbid obesity)? @ -HTN, HLD Was patient admitted / discharged? Hospital course, mention meds given and route, prescriptions, significant lab abnormalities, going to OR and other pertinent info. @ -Admitted. 79-year-old male presenting to the ER via EMS for evaluation of abdominal pain. Upon rooming, history and physical exam completed. Patient is tachycardic and hypertensive vitals otherwise within acceptable limits. Hypertension improved upon reevaluation. Patient remained tachycardic 116 bpm. Patient had no signs of acute distress nontoxic-appearing. Exam remarkable for focal right lower quadrant abdominal tenderness with normal bowel sounds. There is no rebound tenderness or guarding. Laboratory studies along with CT abdomen pelvis will be obtained, patient is agreeable. Laboratory studies showed a leukocytosis of 18.1 with a left shift. CMP with mild signs of dehydration BUN 23, creatinine 1.00, sodium 134. CT abdomen pelvis concerning of acute appendicitis. Patient received symptomatic treatment with IV fluids and Dilaudid, with improvement. Given findings of appendicitis case was discussed with on-call general surgery, Dr. Vinson who accepts consultation with medicine admission. Medicine admission discussed with Jason physician, Dr. Palma, by my attending, Dr. Briggs. Upon reevaluation, patient resting comfortably on stretcher no signs of acute distress. Results discussed with patient, all questions answered. Patient agreeable for admission. Patient admitted in stable condition for further evaluation and treatment. NPO diet. Patient started on maintenance fluids and Zosyn, for infection prophylaxis. Blood cultures obtained prior to antibiotic initiation. Case discussed with ED attending, Dr. Briggs. Undiagnosed new problem with uncertain prognosis? @ -No Drug Therapy requiring intensive monitoring for toxicity (Heparin, Nitro, In sulin, Cardizem)? @ -No Were any procedures done? @ -No Diagnosis/symptom? @ -Appendicitis Acute, or Chronic, or Acute on Chronic? @ -Acute Uncomplicated (without systemic symptoms) or Complicated (systemic symptoms)? @ -Complicated Side effects of treatment? @ -No Exacerbation, Progression, or Severe Exacerbation? @ -No Poses a threat to life or bodily function? How? (Chest pain, USA, SC, pneumonia, PE, COPD, DKA, ARF, appy, cholecystitis, CVA, Diverticulitis, Homicidal, Suicidal, threat to staff... and all critical care pts) @ -Yes, can lead to sepsis and/or bowel perforation - Lab Data Result diagrams: 10/12/24 22:36 10/12/24 22:36 Lab Results 10/12/24 10/12/24 10/12/24 Range/Units 22:36 22:36 22:36 WBC 18.10 H (4.50-10.00) 10*3/uL RBC 4.80 (4.40-5.60) 10*6/uL Hgb 14.2 (13.0-17.0) g/dL Hct 41.5 (39.6-50.0) % MCV 86.5 (80.0-97.0) fL MCH 29.6 (27.0-32.0) pg MCHC 34.2 (32.0-37.0) g/dL Plt Count 213 (140-440) 10*3/uL MPV 10.9 (9.5-12.2) fL Immature Gran % (Auto) 0.4 % Neutrophils % 90.2 % Lymphocytes % 3.5 % Monocytes % 5.6 % Eosinophils % 0.0 % Basophils % 0.3 % Immature Gran # 0.08 H (0.00-0.04) 10*3/uL Neutrophils # 16.31 H (1.80-7.70) 10*3/uL Lymphocytes # 0.64 L (0.90-5.00) 10*3/uL Monocytes # 1.02 H (0.20-1.00) 10*3/uL Eosinophils # 0.00 L (0.04-0.35) 10*3/uL Basophils # 0.05 (0.00-0.10) 10*3/uL Sodium 134 L (137-145) mmol/L Potassium 4.3 (3.5-5.1) mmol/L Chloride 100 (98-107) mmol/L Carbon Dioxide 22 (22-30) mmol/L Anion Gap 12 mmol/L BUN 23 H (9-20) mg/dL Creatinine 1.00 (0.66-1.25) mg/dL Est GFR (CKD-EPI)AfAm 83 (>60 ml/min/1.73 sqM) Est GFR (CKD-EPI)NonAf 72 (>60 ml/min/1.73 sqM) Glucose 176 H (74-99) mg/dL Plasma Lactic Acid Dl 1.0 (0.7-2.0) mmol/L Calcium 9.7 (8.4-10.2) mg/dL Total Bilirubin 0.8 (0.2-1.3) mg/dL AST 26 (17-59) U/L ALT 30 (4-49) U/L Alkaline Phosphatase 94 (38-126) U/L Total Protein 7.0 (6.3-8.2) g/dL Albumin 4.3 (3.5-5.0) g/dL Amylase 59 (30-110) U/L Lipase 200 (23-300) U/L - EKG Data -: EKG Interpreted by [facility] EKG Comments: EKG taken at 22: 18 showing a sinus tachycardia with a right bundle branch block. Appears similar to prior in 2016. Ventricular rate 116, ID interval 177, QRS duration 149, QT/QTc 341/410. - Radiology Data Radiology results: report reviewed, image reviewed Disposition Clinical Impression: Acute appendicitis Disposition: ADMITTED IP TO THIS [facility] Condition: Stable Referrals: Mahamed Hunter MD [Primary Care Provider] - 1-2 days Time of Disposition: 01:19
[2024-10-12 22:50] LABS: Basophils # (A) 0.05 10*3/uL (0.00-0.10); Basophils % (A) 0.3 %; HCT 41.5 % (39.6-50.0); HGB 14.2 g/dL (13.0-17.0); Lymphocytes # (A) 0.64 10*3/uL (0.90-5.00); Lymphocytes % (A) 3.5 %; MCH 29.6 pg (27.0-32.0); MCHC 34.2 g/dL (32.0-37.0); MCV 86.5 fL (80.0-97.0); Mean Platelet Volume 10.9 fL (9.5-12.2); Monocytes # (A) 1.02 10*3/uL (0.20-1.00); Monocytes % (A) 5.6 %; Neutrophils # (A) 16.31 10*3/uL (1.80-7.70); Neutrophils % (A) 90.2 %; Platelet Count 213 10*3/uL (140-440); RDW 14.2 % (11.5-14.5)
[2024-10-12 23:28] LABS: ALT 30 U/L (4-49); AST 26 U/L (17-59); African American GFR (CKD) 83 (>60 ml/min/1.73 sqM); Albumin 4.3 g/dL (3.5-5.0); Alkaline Phosphatase 94 U/L (38-126); Amylase 59 U/L (30-110); Anion Gap 12 mmol/L; Blood Urea Nitrogen 23 mg/dL (9-20); Calcium 9.7 mg/dL (8.4-10.2); Carbon Dioxide 22 mmol/L (22-30); Chloride 100 mmol/L (98-107); Glucose 176 mg/dL (74-99); Lipase 200 U/L (23-300); Non-African American GFR(CKD) 72 (>60 ml/min/1.73 sqM); Potassium 4.3 mmol/L (3.5-5.1); Sodium 134 mmol/L (137-145); Total Bilirubin 0.8 mg/dL (0.2-1.3)
--- NOTE | 2024-10-13 01:01 | CT ---
EXAM: CT Abdomen and Pelvis With Intravenous Contrast CLINICAL HISTORY: Pt complains of RLQ pain X3days. Denies recent abd sx, cholecystectomy (30yrs ago). Last BM today. RLQ abd pain TECHNIQUE: Axial computed tomography images of the abdomen and pelvis with intravenous contrast. Coronal and sagittal reconstructions are performed. CTDI is 37.3 mGy and DLP is 2023.1 mGy-cm. This CT exam was performed using one or more of the following dose reduction techniques: automated exposure control, adjustment of the mA and/or kV according to patient size, and/or use of iterative reconstruction technique. 798 images COMPARISON: No relevant prior studies available. FINDINGS: Lung bases: Bibasilar atelectasis. ABDOMEN: Liver: Punctate granulomatous calcifications. Gallbladder and bile ducts: Unremarkable. No calcified stones. No ductal dilation. Pancreas: Unremarkable. No mass. No ductal dilation. Spleen: Punctate granulomatous calcifications. Adrenals: Unremarkable. No mass. Kidneys and ureters: Unremarkable. No solid mass. No hydronephrosis. Stomach and bowel: Unremarkable. No obstruction. No mucosal thickening. PELVIS: Appendix: Appendix is dilated to 16 mm, containing inspissated stool and 11 mm obstructing appendicolith proximally, surrounded by moderate amount of mesenteric inflammation, characteristic of appendicitis. Bladder: Unremarkable. No mass. Reproductive: Unremarkable as visualized. ABDOMEN and PELVIS: Intraperitoneal space: Unremarkable. No free air. No significant fluid collection. Bones/joints: Osteopenia. Moderate degenerative changes. 4 mm retrolisthesis of L3 on L4. Degenerative disc disease is worse at this level. Total right hip replacement prostheses. Total right hip replacement prostheses cause large amount of streak artifact, which decrease the sensitivity on associated images. Soft tissues: Small fat-containing umbilical hernia. Small fat- containing bilateral inguinal hernias. Vasculature: Small amount of atherosclerotic calcifications. No abdominal aortic aneurysm. Lymph nodes: Unremarkable. No enlarged lymph nodes. IMPRESSION: appendicitis. No perforation or abscess. <MYCVCSECTION> Communications: 10/13/24 01:07 Verify Receipt Verified receipt with Dr. Briggs on 10/13 01:07 (-04:00)
[2024-10-13] MEDS ORDERED: NALOXONE 0.4 MG/ML 1 ML VIAL IV PRN (01:29)
[2024-10-13] MEDS ORDERED: KETOROLAC 15 MG/ML 1 ML VIAL IVP PRN (01:34)
[2024-10-13] MEDS ORDERED: HYDROmorphone 1 MG/ML 1 ML SYRINGE IVP PRN (01:34)
[2024-10-13] MEDS: SODIUM CHLORIDE 0.9% 1,000 ML IV SCH (01:57)
[2024-10-13] MEDS: PIPERACILLIN-TAZOBACTAM 3.375 GM in SODIUM CHLORIDE 0.9% 100 ML IVPB SCH (01:57)
--- NOTE | 2024-10-13 02:14 | P.HPIM ---
History of Present Illness H&P Date: 10/13/24 Chief Complaint: abdominal pain Mr. Flores is a 79 YO m with a pmhx of major depression and primary htn. He presents to the hospital today complaining of a 3-day course of abdominal pain. He reports he has been having right lower abdominal pain since then. Given the symptoms he had called EMS and he had presented to the hospital today for further evaluation. When he presented to the hospital had a low-grade temperature of 98.6 he was tachycardic he was hemodynamically stable and he was on room air. Lab work revealed a white blood cell count of 18. Hemoglobin was 14 hematocrit was 41.5 platelet count was 213. CMP had revealed a glucose of 176 lactic acid is 1.0 potassium was 4.3. He had a CT abdomen pelvis with IV contrast revealed evidence of appendicitis. He was started on IV piperacillin/tazobactam admitted to hospital for further evaluation. Review of Systems Pertinent positives and negatives as discussed in HPI, a complete review of systems was performed and all other systems are negative. 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 Pain in neck, DDD. History of Any Multi-Drug Resistant Organisms: None Reported Past Surgical History: Cholecystectomy, Joint Replacement, Orthopedic Surgery Additional Past Surgical History / Comment(s): Bilateral knee replacement, Rt Achilles tendon surgery. Mole removed from back with scab, cataract surgery, tumor maligant growth removed on the back, pain procedures. RT DOMINIQUE, COLONOSCOPY Past Anesthesia/Blood Transfusion Reactions: No Reported Reaction Past Psychological History: Depression, PTSD Smoking Status: Former smoker Past Alcohol Use History: Occasional Past Drug Use History: None Reported - Past Family History Father Family Medical History: Blood Disorder, Cancer Additional Family Medical History / Comment(s): Skin, colon cancer. Mother Family Medical History: Cancer Additional Family Medical History / Comment(s): Kidney, stomach cancer. Medications and Allergies Home Medications Medication Instructions Recorded Confirmed Type Citalopram Hydrobromide [CeleXA] 40 mg PO HS 06/23/15 09/04/22 History Cholecalciferol [Vitamin D3 (25 2,000 unit PO DAILY 08/27/15 09/04/22 History Mcg = 1000 Iu)] Simvastatin [Zocor] 20 mg PO HS 03/20/17 09/04/22 History Benazepril HCl 10 mg PO QAM 11/10/18 09/04/22 History amLODIPine [Norvasc] 2.5 mg PO QAM 11/10/18 09/04/22 History Multivitamins, Thera [Multivitamin 1 tab PO DAILY 06/05/22 09/04/22 History (formulary)] Magnesium Oxide [Mag-Ox] 400 mg PO DAILY 09/04/22 09/04/22 History Vitamin K2 [Vitamin K-2] 100 mcg PO DAILY 09/04/22 09/04/22 History Allergies Allergy/AdvReac Type Severity Reaction Status Date / Time No Known Allergies Allergy Verified 10/12/24 22:20 Physical Exam Vitals: Vital Signs Temp Pulse Resp BP 10/12/24 23:17 116 H 18 120/76 10/12/24 22:02 99.6 F 116 H 18 166/105 Intake and Output 10/12/24 10/12/24 10/13/24 14:59 22:59 06:59 Other: Weight 120.202 kg General: non toxic, no distress, male, obese Derm: warm, dry Head: atraumatic, normocephalic, symmetric Eyes: EOMI, no lid lag, anicteric sclera, pupils equal round reactive to light ENT: Nose and ears atraumatic, no thrush, no pharyngeal erythema Neck: No thyromegaly, no cervical lymphadenopathy, trachea midline, supple Mouth: no lip lesion, mucus membranes moist Cardiovascular: S1S2 reg, no murmur Lungs: clear to ascultation bilatera Abdominal: soft, slightly distended however limited due to patient's body habitus. There is pain upon palpation of right lower quadrant Ext: no gross muscle atrophy Neuro: Moving all extremity spontaneously Psych: Alert, oriented, appropriate affect Results CBC & Chem 7: 10/12/24 22:36 10/12/24 22:36 Labs: Abnormal Lab Results - Last 24 Hours (Table) 10/12/24 10/12/24 Range/Units 22:36 22:36 WBC 18.10 H (4.50-10.00) 10*3/uL Immature Gran # 0.08 H (0.00-0.04) 10*3/uL Neutrophils # 16.31 H (1.80-7.70) 10*3/uL Lymphocytes # 0.64 L (0.90-5.00) 10*3/uL Monocytes # 1.02 H (0.20-1.00) 10*3/uL Eosinophils # 0.00 L (0.04-0.35) 10*3/uL Sodium 134 L (137-145) mmol/L BUN 23 H (9-20) mg/dL Glucose 176 H (74-99) mg/dL Assessment and Plan Assessment: #) Acute appendicitis. Continue IV piperacillin tazobactam for intra-abdominal coverage. N.p.o. status for expectant appendectomy with general surgery today. Continue IV fluid with normal saline at 75 cc an hour. Check PT/INR prior to any surgical intervention. Pain control with as needed IV hydromorphone 0.5 and 1 mg as needed. #) Primary hypertension the patient uses BenzePrO 20 mg daily at home. Does not per hospital formulary substitute with lisinopril 20 mg daily #) Major depression continue home citalopram 40 mg daily #) History of prior cholecystectomy. The patient has a large right upper quadrant surgical incision from his prior cholecystectomy. #) Class II obesity, bmi 36. weight loss recommended dvt ppx: scds Time with Patient: Greater than 30
[2024-10-13 02:52] LABS: Appearance,Urine Clear (Clear); Bilirubin,Urine Negative (Negative); Blood,Urine Negative (Negative); Color,Urine Yellow; Glucose,Urine (UA) Negative (Negative); Ketones,Urine 1+ (Negative); Leukocyte Esterase,Urine Negative (Negative); Nitrite,Urine Negative (Negative); PH, Urine 5.5 (5.0-8.0); Protein,Urine Trace (Negative); Urobilinogen,Urine <2.0 mg/dL (<2.0)
[2024-10-13 02:53] LABS: Specific Gravity,Urine >1.050 (1.001-1.035)
[2024-10-13 03:02] LABS: Basophils # (A) 0.04 10*3/uL (0.00-0.10); Basophils % (A) 0.2 %; HCT 40.9 % (39.6-50.0); HGB 13.6 g/dL (13.0-17.0); Lymphocytes # (A) 0.76 10*3/uL (0.90-5.00); Lymphocytes % (A) 4.4 %; MCH 28.9 pg (27.0-32.0); MCHC 33.3 g/dL (32.0-37.0); MCV 86.8 fL (80.0-97.0); Mean Platelet Volume 11.1 fL (9.5-12.2); Monocytes # (A) 1.16 10*3/uL (0.20-1.00); Monocytes % (A) 6.7 %; Neutrophils # (A) 15.13 10*3/uL (1.80-7.70); Neutrophils % (A) 88.1 %; Platelet Count 210 10*3/uL (140-440); RBC 4.71 10*6/uL (4.40-5.60); RDW 14.3 % (11.5-14.5); WBC 17.19 10*3/uL (4.50-10.00)
[2024-10-13 03:17] LABS: Prothrombin Time 11.4 sec (10.0-12.5)
[2024-10-13] MEDS: HYDROmorphone 0.5 MG/0.5 ML SYRINGE IVP PRN ×2 (06:23→12:23)
[2024-10-13 07:52] LABS: Basophils # (A) 0.04 10*3/uL (0.00-0.10); Basophils % (A) 0.2 %; HCT 41.7 % (39.6-50.0); HGB 13.6 g/dL (13.0-17.0); Lymphocytes # (A) 1.01 10*3/uL (0.90-5.00); Lymphocytes % (A) 5.8 %; MCHC 32.6 g/dL (32.0-37.0); MCV 88.9 fL (80.0-97.0); Mean Platelet Volume 11.4 fL (9.5-12.2); Monocytes # (A) 1.24 10*3/uL (0.20-1.00); Monocytes % (A) 7.2 %; Neutrophils # (A) 14.94 10*3/uL (1.80-7.70); Neutrophils % (A) 86.2 %; Platelet Count 207 10*3/uL (140-440); RBC 4.69 10*6/uL (4.40-5.60); RDW 14.6 % (11.5-14.5); WBC 17.33 10*3/uL (4.50-10.00)
[2024-10-13 08:05] LABS: African American GFR (CKD) 73 (>60 ml/min/1.73 sqM); Anion Gap 10 mmol/L; Blood Urea Nitrogen 25 mg/dL (9-20); Carbon Dioxide 24 mmol/L (22-30); Chloride 101 mmol/L (98-107); Glucose 145 mg/dL (74-99); Non-African American GFR(CKD) 63 (>60 ml/min/1.73 sqM); Potassium 4.7 mmol/L (3.5-5.1); Sodium 135 mmol/L (137-145)
[2024-10-13] MEDS: ACETAMINOPHEN TAB 325 MG TAB PO PRN (08:54)
[2024-10-13] MEDS: lisinopriL 20 MG TAB PO SCH (08:54)
[2024-10-13] MEDS: HYDROmorphone 2 MG/ML 1 ML SYRINGE IVP PRN (09:40)
--- NOTE | 2024-10-13 09:40 | P.GSCN ---
History of Present Illness Consult date: 10/13/24 History of present illness: CHIEF COMPLAINT: Abdominal pain HISTORY OF PRESENT ILLNESS: This is a 79-year-old male who presented to the hospital with right lower quadrant abdominal pain x 3 days. He has been feverish and having nausea and weakness. Patient thought he was constipated. Had taken laxatives with no improvement. He reports no bowel movement for couple of days. He had CT scan abdomen pelvis that did report evidence of appendicitis. He has been febrile mildly tachycardic with elevated white count. Past surgical history does include cholecystectomy. Also history of heavy alcohol use. Patient denies any chest pain or shortness of breath. Denies any cardiac history. Denies any blood thinners. 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 Pain in neck, DDD. PAST SURGICAL HISTORY: Cholecystectomy, Joint Replacement, Orthopedic Surgery MEDICATIONS: See below ALLERGIES: See below SOCIAL HISTORY: No illicit drug use. Heavy alcohol use. Patient reports he drinks 3 times a week 4-8 Holick drinks at a time. REVIEW OF SYSTEMS: CONSTITUTIONAL: Denies fever or chills. HEENT: Denies blurred vision, vision changes, or eye pain. Denies hemoptysis CARDIOVASCULAR: Denies chest pain or pressure. RESPIRATORY: No shortness of breath. GASTROINTESTINAL: See HPI for pertinent findings HEMATOLOGIC: Denies bleeding disorders. GENITOURINARY: Denies any blood in urine or increased urinary frequency. SKIN: Denies pruitis. Denies rash. PHYSICAL EXAM: VITAL SIGNS: Reviewed GENERAL: Well-developed in no acute distress. HEENT: No sclera icterus. Extraocular movements grossly intact. Moist buccal mucosa. Head is atraumatic, normocephalic. No nasal drainage. ABDOMEN: Soft. Nondistended. Tenderness palpation right lower quadrant. Old Open cholecystectomy scar RUQ NEUROLOGIC: Alert and oriented. Cranial nerves II through XII grossly intact. LABORATORY DATA: WBC 17.3 Hgb 13.6 platelets 207 Sodium 135 potassium 4.7 creatinine 1.11 IMAGING: CT scan of the pelvis reports appendicitis no perforation or abscess. ASSESSMENT: 1. Acute appendicitis PLAN: - Patient scheduled for laparoscopic appendectomy today with Dr. Vinson - Keep n.p.o. - Continue antibiotics - Increase IV fluids to 100 mL/h - Continue pain management Physician Comsec Manager note has been reviewed by physician. Signing provider agrees with the documented findings, assessment, and plan of care. 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 Pain in neck, DDD. History of Any Multi-Drug Resistant Organisms: None Reported Past Surgical History: Cholecystectomy, Joint Replacement, Orthopedic Surgery Additional Past Surgical History / Comment(s): Bilateral knee replacement, Rt Achilles tendon surgery. Mole removed from back with scab, cataract surgery, tumor maligant growth removed on the back, pain procedures. RT DOMINIQUE, x2 knee, x2 shoulder, x1 hip (right) COLONOSCOPY Past Anesthesia/Blood Transfusion Reactions: No Reported Reaction Past Psychological History: Depression, PTSD Smoking Status: Former smoker Past Alcohol Use History: Occasional Additional Past Alcohol Use History / Comment(s): Quit smoking APPRO 1981, smoked 1 PPD x 20 yrs. Past Drug Use History: None Reported - Past Family History Father Family Medical History: Blood Disorder, Cancer Additional Family Medical History / Comment(s): Skin, colon cancer. Mother Family Medical History: Cancer Additional Family Medical History / Comment(s): Kidney, stomach cancer. Medications and Allergies Home Medications Medication Instructions Recorded Confirmed Type Citalopram Hydrobromide [CeleXA] 40 mg PO HS 06/23/15 09/04/22 History Cholecalciferol [Vitamin D3 (25 2,000 unit PO DAILY 08/27/15 09/04/22 History Mcg = 1000 Iu)] Simvastatin [Zocor] 20 mg PO HS 03/20/17 09/04/22 History Benazepril HCl 10 mg PO QAM 11/10/18 09/04/22 History amLODIPine [Norvasc] 2.5 mg PO QAM 11/10/18 09/04/22 History Multivitamins, Thera [Multivitamin 1 tab PO DAILY 06/05/22 09/04/22 History (formulary)] Magnesium Oxide [Mag-Ox] 400 mg PO DAILY 09/04/22 09/04/22 History Vitamin K2 [Vitamin K-2] 100 mcg PO DAILY 09/04/22 09/04/22 History Allergies Allergy/AdvReac Type Severity Reaction Status Date / Time No Known Allergies Allergy Verified 10/12/24 22:20 Surgical - Exam Vital Signs Temp Pulse Resp BP 99.6 F 116 H 18 166/105 10/12/24 22:02 10/12/24 22:02 10/12/24 22:02 10/12/24 22:02 Results - Labs 10/13/24 06:06 10/13/24 06:06 Abnormal Lab Results - Last 24 Hours (Table) 10/12/24 10/12/24 10/13/24 Range/Units 22:36 22:36 01:48 WBC 18.10 H (4.50-10.00) 10*3/uL Immature Gran # 0.08 H (0.00-0.04) 10*3/uL Neutrophils # 16.31 H (1.80-7.70) 10*3/uL Lymphocytes # 0.64 L (0.90-5.00) 10*3/uL Monocytes # 1.02 H (0.20-1.00) 10*3/uL Eosinophils # 0.00 L (0.04-0.35) 10*3/uL Sodium 134 L (137-145) mmol/L BUN 23 H (9-20) mg/dL Glucose 176 H (74-99) mg/dL Ur Specific [place] >1.050 H (1.001-1.035) Urine Protein Trace H (Negative) Urine Ketones 1+ H (Negative) 10/13/24 10/13/24 10/13/24 Range/Units 02:41 06:06 06:06 WBC 17.19 H 17.33 H (4.50-10.00) 10*3/uL Immature Gran # 0.10 H 0.10 H (0.00-0.04) 10*3/uL Neutrophils # 15.13 H 14.94 H (1.80-7.70) 10*3/uL Lymphocytes # 0.76 L (0.90-5.00) 10*3/uL Monocytes # 1.16 H 1.24 H (0.20-1.00) 10*3/uL Eosinophils # 0.00 L 0.00 L (0.04-0.35) 10*3/uL Sodium 135 L (137-145) mmol/L BUN 25 H (9-20) mg/dL Glucose 145 H (74-99) mg/dL Ur Specific [place] (1.001-1.035) Urine Protein (Negative) Urine Ketones (Negative) Diabetes panel 10/12/24 10/13/24 Range/Units 22:36 06:06 Sodium 134 L 135 L (137-145) mmol/L Potassium 4.3 4.7 (3.5-5.1) mmol/L Chloride 100 101 (98-107) mmol/L Carbon Dioxide 22 24 (22-30) mmol/L BUN 23 H 25 H (9-20) mg/dL Creatinine 1.00 1.11 (0.66-1.25) mg/dL Glucose 176 H 145 H (74-99) mg/dL Calcium 9.7 9.0 (8.4-10.2) mg/dL AST 26 (17-59) U/L ALT 30 (4-49) U/L Alkaline Phosphatase 94 (38-126) U/L Total Protein 7.0 (6.3-8.2) g/dL Albumin 4.3 (3.5-5.0) g/dL Calcium panel 10/12/24 10/13/24 Range/Units 22:36 06:06 Calcium 9.7 9.0 (8.4-10.2) mg/dL Albumin 4.3 (3.5-5.0) g/dL Pituitary panel 10/12/24 10/13/24 Range/Units 22:36 06:06 Sodium 134 L 135 L (137-145) mmol/L Potassium 4.3 4.7 (3.5-5.1) mmol/L Chloride 100 101 (98-107) mmol/L Carbon Dioxide 22 24 (22-30) mmol/L BUN 23 H 25 H (9-20) mg/dL Creatinine 1.00 1.11 (0.66-1.25) mg/dL Glucose 176 H 145 H (74-99) mg/dL Calcium 9.7 9.0 (8.4-10.2) mg/dL Adrenal panel 10/12/24 10/13/24 Range/Units 22:36 06:06 Sodium 134 L 135 L (137-145) mmol/L Potassium 4.3 4.7 (3.5-5.1) mmol/L Chloride 100 101 (98-107) mmol/L Carbon Dioxide 22 24 (22-30) mmol/L BUN 23 H 25 H (9-20) mg/dL Creatinine 1.00 1.11 (0.66-1.25) mg/dL Glucose 176 H 145 H (74-99) mg/dL Calcium 9.7 9.0 (8.4-10.2) mg/dL Total Bilirubin 0.8 (0.2-1.3) mg/dL AST 26 (17-59) U/L ALT 30 (4-49) U/L Alkaline Phosphatase 94 (38-126) U/L Total Protein 7.0 (6.3-8.2) g/dL Albumin 4.3 (3.5-5.0) g/dL
[2024-10-13] MEDS: IV FLUID CONTINUATION 1,000 ML IV ONE (10:10)
[2024-10-13] MEDS: SODIUM CHLORIDE 0.9% 1,000 ML IV ONE ×2 (10:17→15:33)
[2024-10-13] MEDS: HEPARIN SODIUM,PORCINE 5,000 UNIT/ML 1 ML VIAL SQ STA (10:49)
[2024-10-13] MEDS: DEXAMETHASONE SOD PHOSPHATE 4 MG/ML 1 ML VIAL IVP STA (10:51)
[2024-10-13] MEDS: ONDANSETRON 4 MG/2 ML VIAL IVP PRN (10:59)
[2024-10-13] MEDS ORDERED: NEOSTIGMINE 1 MG/ML 10 ML VIAL ONE (11:01)
[2024-10-13] MEDS ORDERED: LIDOCAINE 1% INJ 10MG/ML (20 ML MDV) ONE (11:01)
[2024-10-13] MEDS ORDERED: ROCURONIUM 10 MG/ML (5 ML VIAL) IV ONE (11:01)
[2024-10-13] MEDS ORDERED: SUCCINYLCHOLINE CHLORIDE 200 MG/10 ML VIAL IV ONE (11:01)
[2024-10-13] MEDS ORDERED: GLYCOPYRROLATE 0.2 MG/ML 2 ML VIAL ONE (11:01)
[2024-10-13] MEDS ORDERED: PHENYLEPHRINE-0.9% NACL SYG 1,000 MCG/10 ML SYRINGE ONE (11:01)
[2024-10-13] MEDS ORDERED: fentaNYL (PF) 50 MCG/ML 2 ML AMP ONE (11:01)
[2024-10-13] MEDS ORDERED: PROPOFOL 10 MG/ML 20 ML VIAL IV ONE (11:01)
[2024-10-13] MEDS: LIDOCAINE 1%-EPI 1:100,000 20 ML VIAL SQ ONE ×2 (11:09→11:23)
[2024-10-13] MEDS: LACTATED RINGERS 1,000 ML IV ONE (11:53)
--- NOTE | 2024-10-13 11:54 | P.OP ---
Date of Procedure: 10/13/24 Preoperative Diagnosis: Acute appendicitis Postoperative Diagnosis: Acute appendicitis with microperforation Procedure(s) Performed: Laparoscopic appendectomy Anesthesia: PHILLIP Surgeon: Kenny Vinson Estimated Blood Loss (ml): 10 Pathology: other (Appendix) Condition: stable Disposition: PACU Operative Findings: Acute appendicitis with microperforation. Significant intra-abdominal adhesions Description of Procedure: The patient's placed on the operating table in the supine position. The patient received general anesthesia. The abdomen was prepped and draped in the usual sterile fashion. The skin was anesthetized 1% local Xylocaine at the trocar sites. Using an 11 blade the skin was incised at the umbilicus. The umbilicus was grasped with a Theresa clamp and then a Veress needle was placed into the peritoneal cavity. Position of the Veress needle was confirmed with positive drop test. After adequate insufflation a 5 mm trocar was placed into the peritoneal cavity. The abdomen was further insufflated. And then the laparoscope was placed in the peritoneal cavity. Next a 5 mm trocar was placed in the midline suprapubic position. And then a 10 mm trocar was placed in the midline epigastric position. The patient was rotated with the right side up and in Trendelenburg. The appendix was visualized. The appendix appeared to be inflamed. The appendix was grasped and then using the Harmonic scissors the mesoappendix was divided. A PDS Endoloop was then placed around the base of the appendix. And then the appendix was divided using Harmonic scissors. The appendix was placed into an Endo Catch and brought out through the 10 mm trocar site. The abdomen was irrigated. There is no bleeding seen. The trochars withdrawn. The skin was closed interrupted 3-0 Monocryl suture. Dermabond dressing was applied. Patient was sent to recovery room in stable condition.
--- NOTE | 2024-10-13 13:36 | P.PN ---
Subjective Progress Note Date: 10/13/24 Hospital Course: 79-year-old male with medical history of hypertension, dyslipidemia, depression, obesity, who presented to the ER with history of 3 days of right lower quadrant abdominal pain. he presented to the hospital had a low-grade temperature of 98.6 he was tachycardic he was hemodynamically stable and he was on room air. Lab work revealed a white blood cell count of 18. Hemoglobin was 14 hematocrit was 41.5 platelet count was 213. CMP had revealed a glucose of 176 lactic acid is 1.0 potassium was 4.3. He had a CT abdomen pelvis with IV contrast revealed evidence of appendicitis. He was started on IV piperacillin/tazobactam admitted to hospital for further evaluation. 10/13/24 he was taken for laparoscopic appendectomy, appendix was inflamed. Tolerated procedure well, continued on Zosyn and IV fluids Subjective: Seen and examined 9 at bedside, complaining of postop discomfort Pertinent positives and negatives as discussed above, a complete review of systems was performed and all other systems are negative. Vitals Signs Reviewed. General: [nontoxic], [no distress], [appears at stated age] Derm: [warm], [dry] Head: [atraumatic], [normocephalic], [symmetric] Eyes: [EOMI], [no lid lag], [anicteric sclera] Mouth: [no lip lesion], [mucus membranes moist] Cardiovascular: [S1S2 reg], [no murmur] Lungs: [CTA bilateral], [no rhonchi, no rales] , [no accessory muscle use] Abdominal: [soft], [tender to palpation, dressing clean and dry], [no guarding], [no appreciable organomegaly] Ext: [no gross muscle atrophy], [no edema], [no contractures] Neuro: [ CN II-XI grossly intact], [no focal neuro deficits] Psych: [Alert], [oriented], [appropriate affect] Data Reviewed Today: Assessment and Plan: Acute appendicitis status post laparoscopic appendectomy/ - Surgery consulted, appreciate recommendations -Continue Zosyn 3.375 g every 8 hours SOT/ -Continue NS at 100 cc/h -Continue n.p.o. until diet advanced by surgical team -Follow-up on blood cultures, daily CBC and CMP - Pain control with IV Dilaudid 0.5 and 1 mg every 3 hours as needed Depression: Continue home Celexa 40 mg nightly Hypertension: Continue home lisinopril 20 mg daily Obesity BMI 36, recommend structured weight loss program DVT ppx: Lovenox Code status: Full code Anticipated discharge place: TBD Anticipated discharge time: TBD Objective - Vital Signs Vital signs: Vital Signs Temp 97.2 F L 10/13/24 12:02 Pulse 114 H 10/13/24 13:16 Resp 16 10/13/24 13:16 BP 91/58 10/13/24 13:16 Pulse Ox 94 L 10/13/24 13:16 FiO2 Intake & Output 10/12/24 10/13/24 10/13/24 18:59 06:59 18:59 Intake Total 1800 Output Total 10 Balance 1790 Weight 120.202 kg 120.202 kg Intake: IV 1800 Output: Estimated Blood Loss 10 Other: # Voids 1 - Labs CBC & Chem 7: 10/13/24 06:06 10/13/24 06:06 Labs: Abnormal Lab Results - Last 24 Hours (Table) 10/12/24 10/12/24 10/13/24 Range/Units 22:36 22:36 01:48 WBC 18.10 H (4.50-10.00) 10*3/uL Immature Gran # 0.08 H (0.00-0.04) 10*3/uL Neutrophils # 16.31 H (1.80-7.70) 10*3/uL Lymphocytes # 0.64 L (0.90-5.00) 10*3/uL Monocytes # 1.02 H (0.20-1.00) 10*3/uL Eosinophils # 0.00 L (0.04-0.35) 10*3/uL Sodium 134 L (137-145) mmol/L BUN 23 H (9-20) mg/dL Glucose 176 H (74-99) mg/dL Ur Specific [place] >1.050 H (1.001-1.035) Urine Protein Trace H (Negative) Urine Ketones 1+ H (Negative) 10/13/24 10/13/24 10/13/24 Range/Units 02:41 06:06 06:06 WBC 17.19 H 17.33 H (4.50-10.00) 10*3/uL Immature Gran # 0.10 H 0.10 H (0.00-0.04) 10*3/uL Neutrophils # 15.13 H 14.94 H (1.80-7.70) 10*3/uL Lymphocytes # 0.76 L (0.90-5.00) 10*3/uL Monocytes # 1.16 H 1.24 H (0.20-1.00) 10*3/uL Eosinophils # 0.00 L 0.00 L (0.04-0.35) 10*3/uL Sodium 135 L (137-145) mmol/L BUN 25 H (9-20) mg/dL Glucose 145 H (74-99) mg/dL Ur Specific [place] (1.001-1.035) Urine Protein (Negative) Urine Ketones (Negative)
[2024-10-13] MEDS ORDERED: LORazepam 1 MG TAB PO PRN ×3 (14:50)
[2024-10-13] MEDS ORDERED: LORazepam 0.5 MG TAB PO PRN (14:50)
--- NOTE | 2024-10-13 15:15 | P.PN ---
Progress Note - Text Progress Note Date: 10/13/24 Patient is POD#0 status post laparoscopic appendectomy. He does report abdominal pain. Blood pressure has been on the lower side and he has been mildly tachycardic. BP 99/53 heart rate 115. he denies any nausea. Will give a 1 L fluid bolus. Continue with maintenance fluids. IV Tylenol added for pain. CIWA protocol added due to history of alcohol use. Also started thiamine folic acid and multivitamin. Incentive spirometer ordered. Continue to monitor
[2024-10-13] MEDS: ACETAMINOPHEN IV (For NPO) 1,000 MG in EMPTY BAG 1 BAG IVPB SCH (15:32)
[2024-10-13] MEDS: THIAMINE 100 MG/ML 2 ML VIAL IM STA (15:35)
[2024-10-13] MEDS: THIAMINE 100 MG TAB PO ONE (16:59)
[2024-10-13] MEDS: CITALOPRAM HYDROBROMIDE 20 MG TAB PO SCH (20:49)
[2024-10-14 07:59] LABS: Basophils # (A) 0.04 X 10*3/uL (0.00-0.10); Basophils % (A) 0.2 %; Eosinophils # (A) 0 X 10*3/uL (0.04-0.35); Eosinophils % (A) 0 %; HCT 39.5 % (39.6-50.0); Lymphocytes # (A) 0.68 X 10*3/uL (0.90-5.00); MCH 28.3 pg (27.0-32.0); MCHC 30.4 g/dL (32.0-37.0); MCV 93.2 FL (80.0-97.0); Mean Platelet Volume 11.5 FL (9.5-12.2); Monocytes # (A) 1.28 X 10*3/uL (0.20-1.00); Monocytes % (A) 7.5 %; NRBC Per 100 WBC 0 X 10*3/uL (0.00-0.01); Neutrophils # (A) 14.86 X 10*3/uL (1.80-7.70); Neutrophils % (A) 87.5 %; Platelet Count 188 X 10*3/uL (140-440); RBC 4.24 X 10*6/uL (4.40-5.60); RDW 15.1 % (11.5-14.5)
--- NOTE | 2024-10-14 08:21 | XR ---
EXAMINATION TYPE: XR chest 1V portable DATE OF EXAM: 10/14/2024 8:15 AM COMPARISON: Chest radiographs from 12/19/2021, CT chest 05/27/2022, CT abdomen and pelvis 10/12/2024 TECHNIQUE: XR chest 1V portable Portable AP radiograph of the chest. CLINICAL INDICATION:Male, 79 years old with history of hypoxia; FINDINGS: Patient is rotated which limits evaluation. Lungs/Pleura: No evidence of pneumothorax. Left basilar airspace opacities. No pleural effusion. Pulmonary vascularity: Unremarkable. Heart/mediastinum: Cardiomediastinal silhouette is unremarkable. Musculoskeletal: No acute osseous pathology. Bilateral shoulder arthroplasty changes. IMPRESSION: Left basilar airspace opacity which may represent atelectasis versus infiltrates. [facility], , 10/14/2024 8:18 AM
[2024-10-14 08:27] LABS: ALT 90 U/L (10-49); AST 62 U/L (14-35); Albumin 3.6 g/dL (3.8-4.9); Albumin/Globulin Ratio 1.64 Ratio (1.60-3.17); Alkaline Phosphatase 115 U/L (41-126); BUN/Creat Ratio 20.69 Ratio (12.00-20.00); Blood Urea Nitrogen 26.9 mg/dL (9.0-27.0); Carbon Dioxide 19.7 mmol/L (21.6-31.8); Chloride 104 mmol/L (96-109); Globulin 2.2 g/dL (1.6-3.3); Glucose 141 mg/dL (70-110); Sodium 135 mmol/L (135-145); Total Bilirubin 0.5 mg/dL (0.3-1.2); Total Protein 5.8 g/dL (6.2-8.2)
[2024-10-14] MEDS: THIAMINE 100 MG TAB PO SCH (09:19)
[2024-10-14] MEDS: MULTIVITAMINS, THERA 1 EACH TAB PO SCH (09:19)
[2024-10-14] MEDS: FOLIC ACID 1 MG TAB PO SCH (09:19)
[2024-10-14] MEDS: ENOXAPARIN 40 MG/0.4 ML SYRINGE SQ SCH (11:16)
--- NOTE | 2024-10-14 11:27 | P.PN ---
Subjective Progress Note Date: 10/14/24 Hospital Course: 79-year-old male with medical history of hypertension, dyslipidemia, depression, obesity, who presented to the ER with history of 3 days of right lower quadrant abdominal pain. he presented to the hospital had a low-grade temperature of 98.6 he was tachycardic he was hemodynamically stable and he was on room air. Lab work revealed a white blood cell count of 18. Hemoglobin was 14 hematocrit was 41.5 platelet count was 213. CMP had revealed a glucose of 176 lactic acid is 1.0 potassium was 4.3. He had a CT abdomen pelvis with IV contrast revealed evidence of appendicitis. He was started on IV piperacillin/tazobactam admitted to hospital for further evaluation. 10/13/24 he was taken for laparoscopic appendectomy, appendix was inflamed. Tolerated procedure well, continued on Zosyn and IV fluids 10/14: Persistent leukocytosis, afebrile since 10/13/2024 7 AM, on clear liquid diets now continued on IV fluids and Zosyn. Patient reports that he drinks 4-6 drinks up to 2 times a week, denied any history of withdrawals, DTs, seizures, was started on CIWA with Ativan, thiamine and folic acid. Subjective: Seen and examined 9 at bedside, continues to complain of postop pain, states that current pain regimen works Pertinent positives and negatives as discussed above, a complete review of systems was performed and all other systems are negative. Vitals Signs Reviewed. General: [nontoxic], [no distress], [appears at stated age] Derm: [warm], [dry] Head: [atraumatic], [normocephalic], [symmetric] Eyes: [EOMI], [no lid lag], [anicteric sclera] Mouth: [no lip lesion], [mucus membranes moist] Cardiovascular: [S1S2 reg], [no murmur] Lungs: [CTA bilateral], [no rhonchi, no rales] , [no accessory muscle use] Abdominal: [soft], [tender to palpation, dressing clean and dry], [no guarding], [no appreciable organomegaly], abdominal drain in place with serosanguineous discharge Ext: [no gross muscle atrophy], [no edema], [no contractures] Neuro: [ CN II-XI grossly intact], [no focal neuro deficits] Psych: [Alert], [oriented], [appropriate affect] Assessment and Plan: Sepsis secondary to acute appendicitis status post laparoscopic appendectomy/10/13/2024 - Surgery consulted, appreciate recommendations -Continue Zosyn 3.375 g every 8 hours SOT10/13/24, leukocytosis persistent, blood cultures pending, afebrile since 10/13/2024 7 AM -Continue NS at 100 cc/h - Diet advanced to clear liquid, patient does not feel like eating this morning, tolerated dinner reportedly -Follow-up on blood cultures, daily CBC and CMP - Pain control with IV Dilaudid 0.5 and 1 mg every 3 hours as needed Alcohol use -8-12 drinks a week -Started on CIWA with Ativan, thiamine 100 mg p.o. daily and folic acid 1 mg p.o. daily Depression: Continue home Celexa 40 mg nightly Hypertension: Continue home lisinopril 20 mg daily Obesity BMI 36, recommend structured weight loss program I have reviewed the following showroom consultant notes: Surgery I have reviewed the results of the following tests: CBC, CMP I have ordered the following tests: CBC, CMP, monitoring liver function, kidney function, WBC, hemoglobin I have discussed the care of this patient with the following independent historian: I have independently interpreted the following test below: As above I have discussed the management of this patient with the following physician: DVT ppx: Lovenox Code status: Full code Anticipated discharge place: Home Anticipated discharge time: 24 to 48 hours Objective - Vital Signs Vital signs: Vital Signs Temp 98.6 F 10/14/24 07:48 Pulse 98 10/14/24 07:48 Resp 16 10/14/24 07:48 BP 110/64 10/14/24 07:48 Pulse Ox 94 L 10/14/24 07:48 FiO2 Intake & Output 10/13/24 10/14/24 10/14/24 18:59 06:59 18:59 Intake Total 5100 Output Total 100 690 Balance 5000 -690 Weight 120.202 kg Intake: IV 1800 Intake, IV Titration 3300 Amount IV Fluid Continuation 1, 1200 000 ml @ 0 mls/hr IV .STK -MED ONE Rx#:[id number] Piperacillin-Tazobactam 3 100 .375 gm In Sodium Chloride 0.9% 100 ml @ 200 mls/hr IVPB Q8H [facility] Rx#:[id number] Sodium Chloride 0.9% 1, 2000 000 ml @ 999 mls/hr IV . Q1H1M ONE Rx#:[id number] Output: Drainage 90 90 Right Lower Abdomen 90 90 Urine 600 Straight 600 Estimated Blood Loss 10 - Labs CBC & Chem 7: 10/14/24 03:23 10/14/24 03:23 Labs: Abnormal Lab Results - Last 24 Hours (Table) 10/14/24 10/14/24 Range/Units 03:23 03:23 WBC 17.00 H (4.50-10.00) X 10*3/uL RBC 4.24 L (4.40-5.60) X 10*6/uL Hgb 12.0 L (13.0-17.0) g/dL Hct 39.5 L (39.6-50.0) % MCHC 30.4 L (32.0-37.0) g/dL RDW 15.1 H (11.5-14.5) % Immature Gran # 0.14 H (0.00-0.04) X 10*3/uL Neutrophils # 14.86 H (1.80-7.70) X 10*3/uL Lymphocytes # 0.68 L (0.90-5.00) X 10*3/uL Monocytes # 1.28 H (0.20-1.00) X 10*3/uL Eosinophils # 0 L (0.04-0.35) X 10*3/uL Carbon Dioxide 19.7 L (21.6-31.8) mmol/L Est GFR (CKD-EPI) 56 L (>=60) BUN/Creatinine Ratio 20.69 H (12.00-20.00) Ratio Glucose 141 H (70-110) mg/dL Calcium 8.0 L (8.7-10.3) mg/dL AST 62 H (14-35) U/L ALT 90 H (10-49) U/L Total Protein 5.8 L (6.2-8.2) g/dL Albumin 3.6 L (3.8-4.9) g/dL
--- NOTE | 2024-10-14 14:02 | P.PN ---
Subjective Progress Note Date: 10/14/24 SURGICAL PROGRESS NOTE CHIEF COMPLAINT: Appendicitis with microperforation HISTORY OF PRESENT ILLNESS: Patient is postop day# 1 status post laparoscopic appendectomy. Patient reports he is feeling better. He has been up and ambulating in the room. He did have urinary retention last night and required to be straight cath. But since then he has been urinating. He denies any flatus. Afebrile. Patient did receive a liter bolus yesterday for his tachycardia and hypotension. Heart rate and BP have improved. Denies any nausea or vomiting. WBC is 17 Hgb 12 platelets 188. BENI drain 90 mL serosang uineous output. Patient has not required Ativan with the [facility] protocol PHYSICAL EXAM: VITAL SIGNS: Reviewed. GENERAL: Well-developed in no acute distress. HEENT: No sclera icterus. Extraocular movements grossly intact. Moist buccal mucosa. Head is atraumatic, normocephalic. ABDOMEN: Soft. Mildly distended. Incision sites clean dry and intact. BENI drain serosanguineous NEUROLOGIC: Alert and oriented. Cranial nerves II through XII grossly intact. ASSESSMENT: 1. Acute appendicitis with microperforation PLAN: - Add [place] for oral pain medication - Continue clear liquid diet - Continue antibiotics - Repeat CBC in a.m. - Encourage patient to increase activity level - Encourage patient to use incentive spirometer - DVT prophylaxis Lovenox Physician Personalization Specialist note has been reviewed by physician. Signing provider agrees with the documented findings, assessment, and plan of care. Objective - Vital Signs Vital signs: Vital Signs Temp 98.6 F 10/14/24 07:48 Pulse 98 10/14/24 07:48 Resp 16 10/14/24 07:48 BP 110/64 10/14/24 07:48 Pulse Ox 94 L 10/14/24 07:48 FiO2 Intake & Output 10/13/24 10/14/24 10/14/24 18:59 06:59 18:59 Intake Total 5100 Output Total 100 690 Balance 5000 -690 Weight 120.202 kg Intake: IV 1800 Intake, IV Titration 3300 Amount IV Fluid Continuation 1, 1200 000 ml @ 0 mls/hr IV .STK -MED ONE Rx#:[id number] Piperacillin-Tazobactam 3 100 .375 gm In Sodium Chloride 0.9% 100 ml @ 200 mls/hr IVPB Q8H [facility] Rx#:[id number] Sodium Chloride 0.9% 1, 2000 000 ml @ 999 mls/hr IV . Q1H1M ONE Rx#:[id number] Output: Drainage 90 90 Right Lower Abdomen 90 90 Urine 600 Straight 600 Estimated Blood Loss 10 - Labs CBC & Chem 7: 10/14/24 03:23 10/14/24 03:23 Labs: Abnormal Lab Results - Last 24 Hours (Table) 10/14/24 10/14/24 Range/Units 03:23 03:23 WBC 17.00 H (4.50-10.00) X 10*3/uL RBC 4.24 L (4.40-5.60) X 10*6/uL Hgb 12.0 L (13.0-17.0) g/dL Hct 39.5 L (39.6-50.0) % MCHC 30.4 L (32.0-37.0) g/dL RDW 15.1 H (11.5-14.5) % Immature Gran # 0.14 H (0.00-0.04) X 10*3/uL Neutrophils # 14.86 H (1.80-7.70) X 10*3/uL Lymphocytes # 0.68 L (0.90-5.00) X 10*3/uL Monocytes # 1.28 H (0.20-1.00) X 10*3/uL Eosinophils # 0 L (0.04-0.35) X 10*3/uL Carbon Dioxide 19.7 L (21.6-31.8) mmol/L Est GFR (CKD-EPI) 56 L (>=60) BUN/Creatinine Ratio 20.69 H (12.00-20.00) Ratio Glucose 141 H (70-110) mg/dL Calcium 8.0 L (8.7-10.3) mg/dL AST 62 H (14-35) U/L ALT 90 H (10-49) U/L Total Protein 5.8 L (6.2-8.2) g/dL Albumin 3.6 L (3.8-4.9) g/dL Microbiology - Last 24 Hours (Table) 10/13/24 01:42 Blood Culture - Preliminary Blood
[2024-10-14] MEDS: ONDANSETRON 4 MG/2 ML VIAL IVP PRN (20:10)
[2024-10-15] MEDS: FAMOTIDINE 20 MG TAB PO SCH (09:11)
[2024-10-15 09:47] LABS: Basophils # (A) 0.03 X 10*3/uL (0.00-0.10); Basophils % (A) 0.2 %; Eosinophils # (A) 0 X 10*3/uL (0.04-0.35); Eosinophils % (A) 0 %; HCT 40.3 % (39.6-50.0); HGB 12.7 g/dL (13.0-17.0); Lymphocytes # (A) 0.48 X 10*3/uL (0.90-5.00); Lymphocytes % (A) 2.8 %; MCH 28.9 pg (27.0-32.0); MCHC 31.5 g/dL (32.0-37.0); MCV 91.6 FL (80.0-97.0); Mean Platelet Volume 11.6 FL (9.5-12.2); Monocytes # (A) 0.95 X 10*3/uL (0.20-1.00); Monocytes % (A) 5.5 %; NRBC Per 100 WBC 0 X 10*3/uL (0.00-0.01); Neutrophils # (A) 15.78 X 10*3/uL (1.80-7.70); Neutrophils % (A) 90.6 %; Platelet Count 221 X 10*3/uL (140-440); RDW 14.8 % (11.5-14.5)
--- NOTE | 2024-10-15 11:29 | P.PN ---
Subjective Progress Note Date: 10/15/24 79 year old M with PMH of HTN, HLD, Depression, h/o melanoma/basal cell skin CA presented to the ED for RLQ abdominal pain for the past 3 days. In the ED he underwent extensive evaluation. BP 166/105, HR 116, T 99.6F, RR 18. CBC, Coag panel, CMP significant for WBC 18.1, Na 134, BUN 23, glu 176. Lactic acid 1. Amylase 59, Lipase 200. UA neg LE or nitrite. CT AP confirmed appendicitis. Started on Zosyn. Surgery consulted, underwent appendectomy on 10/13. 10/15 Patient was seen and examined. Reports episode of vomiting last night. Urinating freely. No bowel movement but passing gas. Antibiotics include Zosyn 3.75 g IV TID. CBC significant for WBC 17.4, Hg 12.7. CMP pending at the time of this note. General: non toxic, no distress, appears older than stated age Derm: warm, dry Head: atraumatic, normocephalic, symmetric Mouth: no lip lesion, mucus membranes moist Cardiovascular: S1 S2 reg. No murmur. Lungs: Clear to auscultation bilaterally, no accessory muscle use Abd: BENI drain in tact. + BS. Non tender to palpation Ext: no gross muscle atrophy, no edema, no contractures Neuro: No focal neurologic deficits. Psych: Alert and oriented. Based on my assessment of this patient, this patient meets a high complexity level of care. Sepsis secondary to appendicitis: Status post appendectomy 10/13. Continue Zosyn 3.75g IV TID. BCx prelim neg so far. CLD and advance. Zofran 4 mg IV Q6H PRN. Pain management with Dilaudid 0.5-1 mg IV Q3H PRN, Two Dot 5-325 mg Q4 PRN, Tylenol 650 mg PO Q6H PRN. NS at 100 cc/hr. Surgery on board. Acute hypoxic respiratory failure secondary to atelectasis: Incentive spirometer ordered. Acute blood loss anemia which is an expected result of surgery. CLYDE on CKD: IV hydration as above. Transaminitis: Mild elevation. Possibly related to EtOH use. Monitor. Alcohol use: Not in withdrawal. CIWA protocol with Ativan PO as needed. Depression: Celexa 40 mg PO QHS. Hypertension: BP 185/82. Lisinopril 20 mg PO QD. Obesity: BMI 36. Recommend structured weight loss program. CODE STATUS: FULL CODE DVT Prophylaxis: Lovenox SQ GI Prophylaxis: Designated medical POA if patient is not able to make medical decisions for themselves: I have reviewed the following information technology consultant notes: Surgery. I have reviewed the results of the following tests: CBC. I have ordered the following tests: CMP pending. I have discussed the care of this patient with the following independent historian: VONNIE. I have independently interpreted the following test below: I have discussed the management of this patient with the following physician: Objective - Vital Signs Vital signs: Vital Signs Temp 98.1 F 10/15/24 07:05 Pulse 111 H 10/15/24 07:05 Resp 19 10/15/24 07:05 BP 185/82 10/15/24 07:05 Pulse Ox 92 L 10/15/24 07:05 FiO2 Intake & Output 10/14/24 10/15/24 10/15/24 18:59 06:59 18:59 Intake Total 1620 Output Total 40 Balance 1580 Intake: Oral 1620 Output: Drainage 40 Right Lower Abdomen 40 Other: # Voids 3 5 - Labs CBC & Chem 7: 10/15/24 05:01 10/14/24 03:23 Labs: Microbiology - Last 24 Hours (Table) 10/13/24 01:42 Blood Culture - Preliminary Blood
[2024-10-15 13:26] LABS: ALT 62 U/L (10-49); AST 39 U/L (14-35); Albumin 3.6 g/dL (3.8-4.9); Albumin/Globulin Ratio 1.44 Ratio (1.60-3.17); Alkaline Phosphatase 112 U/L (41-126); Blood Urea Nitrogen 25.8 mg/dL (9.0-27.0); Calcium 8.6 mg/dL (8.7-10.3); Carbon Dioxide 16.4 mmol/L (21.6-31.8); Chloride 100 mmol/L (96-109); Globulin 2.5 g/dL (1.6-3.3); Glucose 154 mg/dL (70-110); Potassium 4.5 mmol/L (3.5-5.5); Sodium 138 mmol/L (135-145); Total Bilirubin 0.4 mg/dL (0.3-1.2); Total Protein 6.1 g/dL (6.2-8.2)
--- NOTE | 2024-10-15 16:56 | P.PN ---
Subjective Progress Note Date: 10/15/24 The patient is postoperative day 2 from laparoscopic A appendectomy for acute appendicitis with microperforation. Patient still appears to have a mild ileus. He had some nausea last night. He has had some minimal flatus. He still is complaining of some incisional pain. On exam vital signs appear stable. Abdomen is soft incision sites are clean dry intact. Status post appendicitis with microperforation. Patient can receive IV antibiotics and supportive care. He is not ready to have his diet advanced currently Objective - Vital Signs Vital signs: Vital Signs Temp 98.2 F 10/15/24 14:00 Pulse 67 10/15/24 14:00 Resp 18 10/15/24 14:00 BP 168/87 10/15/24 14:00 Pulse Ox 96 10/15/24 14:00 FiO2 Intake & Output 10/14/24 10/15/24 10/15/24 18:59 06:59 18:59 Intake Total 1620 Output Total 40 100 Balance 1580 -100 Intake: Oral 1620 Output: Drainage 40 100 Right Lower Abdomen 40 100 Other: # Voids 3 5 - Labs CBC & Chem 7: 10/15/24 05:01 10/15/24 05:01 Labs: Abnormal Lab Results - Last 24 Hours (Table) 10/15/24 10/15/24 Range/Units 05:01 05:01 WBC 17.40 H (4.50-10.00) X 10*3/uL Hgb 12.7 L (13.0-17.0) g/dL MCHC 31.5 L (32.0-37.0) g/dL RDW 14.8 H (11.5-14.5) % Immature Gran # 0.16 H (0.00-0.04) X 10*3/uL Neutrophils # 15.78 H (1.80-7.70) X 10*3/uL Lymphocytes # 0.48 L (0.90-5.00) X 10*3/uL Eosinophils # 0 L (0.04-0.35) X 10*3/uL Carbon Dioxide 16.4 L (21.6-31.8) mmol/L Anion Gap 21.60 H (4.00-12.00) mmol/L BUN/Creatinine Ratio 25.80 H (12.00-20.00) Ratio Glucose 154 H (70-110) mg/dL Calcium 8.6 L (8.7-10.3) mg/dL AST 39 H (14-35) U/L ALT 62 H (10-49) U/L Total Protein 6.1 L (6.2-8.2) g/dL Albumin 3.6 L (3.8-4.9) g/dL Albumin/Globulin Ratio 1.44 L (1.60-3.17) Ratio Microbiology - Last 24 Hours (Table) 10/13/24 01:42 Blood Culture - Preliminary Blood
[2024-10-15] MEDS: HYDROcodone/APAP 5-325MG 1 EACH TAB PO PRN (17:33)
[2024-10-16] MEDS: guaiFENesin 600 MG TABLET.ER PO PRN (01:03)
[2024-10-16 09:52] LABS: Basophils # (A) 0.06 X 10*3/uL (0.00-0.10); Basophils % (A) 0.4 %; Eosinophils # (A) 0.02 X 10*3/uL (0.04-0.35); Eosinophils % (A) 0.1 %; HCT 37.5 % (39.6-50.0); HGB 11.9 g/dL (13.0-17.0); Lymphocytes % (A) 4.1 %; MCH 28.1 pg (27.0-32.0); MCHC 31.7 g/dL (32.0-37.0); MCV 88.7 FL (80.0-97.0); Mean Platelet Volume 10.8 FL (9.5-12.2); Monocytes # (A) 1.48 X 10*3/uL (0.20-1.00); Monocytes % (A) 8.7 %; NRBC Per 100 WBC 0 X 10*3/uL (0.00-0.01); Neutrophils # (A) 14.58 X 10*3/uL (1.80-7.70); Neutrophils % (A) 85.2 %; Platelet Count 284 X 10*3/uL (140-440); RBC 4.23 X 10*6/uL (4.40-5.60); RDW 14.8 % (11.5-14.5); WBC 17.09 X 10*3/uL (4.50-10.00)
--- NOTE | 2024-10-16 10:28 | P.PN ---
Subjective Progress Note Date: 10/16/24 The patient states he feels slightly better. His nausea and abdominal pain improved. However he does have a productive cough. On exam vital signs appear stable. Abdomen is soft. Incision sites are clean dry intact. Status post laparoscopic appendectomy for acute appendicitis. Patient will continue receive IV antibiotics. Once his bowel function resumes we will increase his diet. Objective - Vital Signs Vital signs: Vital Signs Temp 97.9 F 10/16/24 07:45 Pulse 108 H 10/16/24 07:45 Resp 18 10/16/24 07:45 BP 175/90 10/16/24 08:58 Pulse Ox 95 10/16/24 07:45 FiO2 Intake & Output 10/15/24 10/16/24 10/16/24 18:59 06:59 18:59 Output Total 100 20 Balance -100 -20 Output: Drainage 100 20 Right Lower Abdomen 100 20 Other: Voiding Method Toilet Urinal # Voids 3 2 - Labs CBC & Chem 7: 10/16/24 05:01 10/15/24 05:01 Labs: Abnormal Lab Results - Last 24 Hours (Table) 10/15/24 10/16/24 Range/Units 05:01 05:01 WBC 17.09 H (4.50-10.00) X 10*3/uL RBC 4.23 L (4.40-5.60) X 10*6/uL Hgb 11.9 L (13.0-17.0) g/dL Hct 37.5 L (39.6-50.0) % MCHC 31.7 L (32.0-37.0) g/dL RDW 14.8 H (11.5-14.5) % Immature Gran # 0.25 H (0.00-0.04) X 10*3/uL Neutrophils # 14.58 H (1.80-7.70) X 10*3/uL Lymphocytes # 0.70 L (0.90-5.00) X 10*3/uL Monocytes # 1.48 H (0.20-1.00) X 10*3/uL Eosinophils # 0.02 L (0.04-0.35) X 10*3/uL Carbon Dioxide 16.4 L (21.6-31.8) mmol/L Anion Gap 21.60 H (4.00-12.00) mmol/L BUN/Creatinine Ratio 25.80 H (12.00-20.00) Ratio Glucose 154 H (70-110) mg/dL Calcium 8.6 L (8.7-10.3) mg/dL AST 39 H (14-35) U/L ALT 62 H (10-49) U/L Total Protein 6.1 L (6.2-8.2) g/dL Albumin 3.6 L (3.8-4.9) g/dL Albumin/Globulin Ratio 1.44 L (1.60-3.17) Ratio Microbiology - Last 24 Hours (Table) 10/13/24 01:42 Blood Culture - Preliminary Blood
[2024-10-16] MEDS ORDERED: IPRATROPIUM-ALBUTEROL 3 ML NEB INHALATION PRN (10:30)
--- NOTE | 2024-10-16 10:54 | XR ---
EXAMINATION TYPE: XR chest 1V portable DATE OF EXAM: 10/16/2024 10:46 AM COMPARISON: Chest radiographs from 10/14/2024 TECHNIQUE: XR chest 1V portable Portable AP radiograph of the chest. CLINICAL INDICATION:Male, 79 years old with history of CP; FINDINGS: Lungs/Pleura: Small bilateral pleural effusions with right basilar airspace opacities. No pneumothora x. Pulmonary vascularity: Unremarkable. Heart/mediastinum: Cardiomediastinal silhouette is unremarkable. Musculoskeletal: No acute osseous pathology. Bilateral shoulder arthroplasty changes. IMPRESSION: Small bilateral pleural effusions with right basilar opacities likely representing atelectasis versus infiltrates. [facility], , 10/16/2024 10:52 AM
[2024-10-16 11:03] LABS: ALT 49 U/L (10-49); AST 30 U/L (14-35); Albumin 3.5 g/dL (3.8-4.9); Alkaline Phosphatase 103 U/L (41-126); BUN/Creat Ratio 26.44 Ratio (12.00-20.00); Blood Urea Nitrogen 23.8 mg/dL (9.0-27.0); Carbon Dioxide 24.4 mmol/L (21.6-31.8); Chloride 102 mmol/L (96-109); Globulin 2.5 g/dL (1.6-3.3); Glucose 133 mg/dL (70-110); Potassium 4.7 mmol/L (3.5-5.5); Sodium 138 mmol/L (135-145); Total Bilirubin 0.5 mg/dL (0.3-1.2)
--- NOTE | 2024-10-16 11:30 | P.PN ---
Subjective Progress Note Date: 10/16/24 79 year old M with PMH of HTN, HLD, Depression, h/o melanoma/basal cell skin CA presented to the ED for RLQ abdominal pain for the past 3 days. In the ED he underwent extensive evaluation. BP 166/105, HR 116, T 99.6F, RR 18. CBC, Coag panel, CMP significant for WBC 18.1, Na 134, BUN 23, glu 176. Lactic acid 1. Amylase 59, Lipase 200. UA neg LE or nitrite. CT AP confirmed appendicitis. Started on Zosyn. Surgery consulted, underwent appendectomy on 10/13. 10/15 Patient was seen and examined. Reports episode of vomiting last night. Urinating freely. No bowel movement but passing gas. Antibiotics include Zosyn 3.75 g IV TID. CBC significant for WBC 17.4, Hg 12.7. CMP pending at the time of this note. 10/16 Patient was seen and examined. He reports right sided chest pain that started last night. Pain is burning in nature, worse with eating. Associated with shortness of breath. Pain improved with deep inspiration. Antibiotics include Zosyn 3.75 g IV TID. CBC and CMP significant for WBC 17.09, RBC 4.23, Hg 11.9, Hct 37.5, BUN/Cr 26.44, glu 133, alb 3.5. General: non toxic, no distress, appears older than stated age Derm: warm, dry Head: atraumatic, normocephalic, symmetric Mouth: no lip lesion, mucus membranes moist Cardiovascular: S1 S2 tachy. No murmur. Chest wall NTTP. Lungs: Clear to auscultation bilaterally, no accessory muscle use Abd: BENI drain in tact. + BS. Non tender to palpation Ext: no gross muscle atrophy, no edema, no contractures Neuro: No focal neurologic deficits. Psych: Alert and oriented. Based on my assessment of this patient, this patient meets a high complexity l evel of care. Right sided chest pain: Likely related to GI. Obtain Trop/EKG. Obtain CXR. Lasix 40 mg IV x 1. Wells Criteria of 3 points which puts him in moderate risk group. Consider CTA chest if renal function remains stable. Sepsis secondary to appendicitis: Status post appendectomy 10/13. Continue Zosyn 3.75g IV TID. BCx prelim neg so far. CLD and advance. Zofran 4 mg IV Q6H PRN. Pain management with Dilaudid 0.5-1 mg IV Q3H PRN, Diamond 5-325 mg Q4 PRN, Tylenol 650 mg PO Q6H PRN. NS decreased from 100 to 50 cc/hr. Surgery on board. Acute hypoxic respiratory failure secondary to atelectasis: Incentive spirometer ordered. Acute blood loss anemia which is an expected result of surgery. CLYDE on CKD stage II: IV hydration as above. Alcohol use: Not in withdrawal. CIWA protocol with Ativan PO as needed. Depression: Celexa 40 mg PO QHS. Hypertension: BP 175/90. Lisinopril 20 mg PO QD. Obesity: BMI 36. Recommend structured weight loss program. Resolved: Transaminitis CODE STATUS: FULL CODE DVT Prophylaxis: Lovenox SQ GI Prophylaxis: Pepcid Designated medical POA if patient is not able to make medical decisions for themselves: I have reviewed the following crm consultant notes: Surgery. I have reviewed the results of the following tests: CBC, CMP. I have ordered the following tests: Trop. EKG. CXR. I have discussed the care of this patient with the following independent historian: RN. I have independently interpreted the following test below: I have discussed the management of this patient with the following physician: Objective - Vital Signs Vital signs: Vital Signs Temp 98.9 F 10/16/24 00:48 Pulse 110 H 10/16/24 00:48 Resp 18 10/16/24 00:48 BP 165/84 10/16/24 00:48 Pulse Ox 95 10/16/24 00:48 FiO2 Intake & Output 10/15/24 10/16/24 10/16/24 18:59 06:59 18:59 Output Total 100 20 Balance -100 -20 Output: Drainage 100 20 Right Lower Abdomen 100 20 Other: Voiding Method Toilet Urinal # Voids 3 2 - Labs CBC & Chem 7: 10/16/24 05:01 10/16/24 05:01 Labs: Abnormal Lab Results - Last 24 Hours (Table) 10/15/24 10/15/24 Range/Units 05:01 05:01 WBC 17.40 H (4.50-10.00) X 10*3/uL Hgb 12.7 L (13.0-17.0) g/dL MCHC 31.5 L (32.0-37.0) g/dL RDW 14.8 H (11.5-14.5) % Immature Gran # 0.16 H (0.00-0.04) X 10*3/uL Neutrophils # 15.78 H (1.80-7.70) X 10*3/uL Lymphocytes # 0.48 L (0.90-5.00) X 10*3/uL Eosinophils # 0 L (0.04-0.35) X 10*3/uL Carbon Dioxide 16.4 L (21.6-31.8) mmol/L Anion Gap 21.60 H (4.00-12.00) mmol/L BUN/Creatinine Ratio 25.80 H (12.00-20.00) Ratio Glucose 154 H (70-110) mg/dL Calcium 8.6 L (8.7-10.3) mg/dL AST 39 H (14-35) U/L ALT 62 H (10-49) U/L Total Protein 6.1 L (6.2-8.2) g/dL Albumin 3.6 L (3.8-4.9) g/dL Albumin/Globulin Ratio 1.44 L (1.60-3.17) Ratio Microbiology - Last 24 Hours (Table) 10/13/24 01:42 Blood Culture - Preliminary Blood
[2024-10-16] MEDS: FUROSEMIDE 10 MG/ML 4 ML VIAL IV STA (11:51)
[2024-10-16] MEDS: CALCIUM CARBONATE 500 MG CHEWABLE PO PRN (16:27)
[2024-10-16] MEDS: FLUCONAZOLE IN NACL,ISO-OSM 200 MG in SALINE 1 100ML.BAG IVPB SCH (16:27)
--- NOTE | 2024-10-16 23:38 | P.CONS ---
History of Present Illness - Reason for Consult Consult date: 10/16/24 Leukocytosis Requesting physician: Kenny Vinson - Chief Complaint Abdominal pain x few days - History of Present Illness Patient is a 79-year-old male with a past medical history significant for hypertension hyperlipidemia osteoarthritis melanoma, presenting to the hospital about 4 days ago with abdominal pain patient has been diagnosed with acute appendicitis with microperforation in this patient who is status post laparoscopic appendectomy on 10/13/2024 patient on presentation to the hospital did have a temperature of 101.1 F patient did have a subsequent resolution of his fever the patient was tachycardic but not hypotensive or hypoxic he did have a white count of 18.10 white count remains to be elevated currently 17.09 creatinine has been normal electrolytes normal liver enzymes normal urine has been negative blood cultures so far pending no OR cultures patient has been treated with Zosyn with persistent leukocytosis infectious disease was consulted today for further management of antibiotic therapy, patient currently denies having any fever or any chills patient did mention his abdominal pain has decreased in intensity currently mostly dull aching mild to moderate intensity patient denies having any nausea or vomiting still did not have any bowel movement no chest pain shortness of breath or cough and no urinary symptoms Review of Systems Positive point and negatives has been mentioned in the HPI, complete review of systems was performed and all other systems are negative Past Medical History Past Medical History: Cancer, Hyperlipidemia, Hypertension, Musculoskeletal Disorder, Osteoarthritis (OA), Skin Disorder Additional Past Medical History / Comment(s): Hx Melanoma Skin CA on back; current basal cell on nose. Pain in neck, DDD. History of Any Multi-Drug Resistant Organisms: None Reported Past Surgical History: Cholecystectomy, Joint Replacement, Orthopedic Surgery Additional Past Surgical History / Comment(s): Bilateral knee replacement, Rt Achilles tendon surgery. Mole removed from back with scab, cataract surgery, tumor maligant growth removed on the back, pain procedures. RT DOMINIQUE, x2 knee, x2 shoulder, x1 hip (right) COLONOSCOPY Past Anesthesia/Blood Transfusion Reactions: No Reported Reaction Past Psychological History: Depression, PTSD Smoking Status: Former smoker Past Alcohol Use History: Occasional Additional Past Alcohol Use History / Comment(s): Quit smoking APPRO 1981, smoked 1 PPD x 20 yrs. Past Drug Use History: None Reported - Past Family History Father Family Medical History: Blood Disorder, Cancer Additional Family Medical History / Comment(s): Skin, colon cancer. Mother Family Medical History: Cancer Additional Family Medical History / Comment(s): Kidney, stomach cancer. Medications and Allergies Home Medications Medication Instructions Recorded Confirmed Type Citalopram Hydrobromide [CeleXA] 40 mg PO HS 06/23/15 10/13/24 History Magnesium Oxide [Mag-Ox] 400 mg PO DAILY 09/04/22 10/13/24 History Ascorbic Acid [Vitamin C] 500 mg PO DAILY 10/13/24 10/13/24 History Benazepril HCl [Lotensin] 20 mg PO DAILY 10/13/24 10/13/24 History Cholecalciferol [Vitamin D3 (25 50 mcg PO DAILY 10/13/24 10/13/24 History Mcg = 1000 Iu)] Cyanocobalamin (Vitamin B-12) 1,000 mcg PO DAILY 10/13/24 10/13/24 History [Vitamin B-12] Loratadine [Claritin] 10 mg PO DAILY 10/13/24 10/13/24 History Rosuvastatin [Crestor] 10 mg PO DAILY 10/13/24 10/13/24 History Allergies Allergy/AdvReac Type Severity Reaction Status Date / Time No Known Allergies Allergy Verified 10/13/24 11:25 Physical Exam Vitals: Vital Signs Temp Pulse Resp BP Pulse Ox 10/16/24 08:58 175/90 10/16/24 07:45 97.9 F 108 H 18 186/94 95 10/16/24 00:48 98.9 F 110 H 18 165/84 95 10/15/24 19:18 99.3 F 112 H 20 135/90 93 L 10/15/24 14:00 98.2 F 67 18 168/87 96 Intake and Output 10/15/24 10/16/24 10/16/24 22:59 06:59 14:59 Output Total 20 Balance -20 Output: Drainage 20 Right Lower Abdomen 20 Other: Voiding Method Toilet Urinal # Voids 3 2 GENERAL DESCRIPTION: Elderly male up in the chair, no distress. No tachypnea or accessory muscle of respiration use. HEENT: Shows Pallor , no scleral icterus. Oral mucous membrane is dry. No pharyngeal erythema or thrush NECK: Trachea central, no thyromegaly. LUNGS: Unlabored breathing. Clear to auscultation anteriorly. No wheeze or crackle. HEART: S1, S2, regular rate and rhythm. No loud murmur ABDOMEN: Soft, mild distention but no significant tenderness did have serosanguineous secretions in the BENI drain EXTREMITIES: No edema of feet. SKIN: No rash, no masses palpable. NEUROLOGICAL: The patient is awake, alert, oriented x3, mood and affect normal. Results CBC & Chem 7: 10/16/24 05:01 10/16/24 05:01 Labs: Abnormal Lab Results - Last 24 Hours (Table) 10/15/24 10/16/24 10/16/24 Range/Units 05:01 05:01 05:01 WBC 17.09 H (4.50-10.00) X 10*3/uL RBC 4.23 L (4.40-5.60) X 10*6/uL Hgb 11.9 L (13.0-17.0) g/dL Hct 37.5 L (39.6-50.0) % MCHC 31.7 L (32.0-37.0) g/dL RDW 14.8 H (11.5-14.5) % Immature Gran # 0.25 H (0.00-0.04) X 10*3/uL Neutrophils # 14.58 H (1.80-7.70) X 10*3/uL Lymphocytes # 0.70 L (0.90-5.00) X 10*3/uL Monocytes # 1.48 H (0.20-1.00) X 10*3/uL Eosinophils # 0.02 L (0.04-0.35) X 10*3/uL Carbon Dioxide 16.4 L (21.6-31.8) mmol/L Anion Gap 21.60 H (4.00-12.00) mmol/L BUN/Creatinine Ratio 25.80 H 26.44 H (12.00-20.00) Ratio Glucose 154 H 133 H (70-110) mg/dL Calcium 8.6 L (8.7-10.3) mg/dL AST 39 H (14-35) U/L ALT 62 H (10-49) U/L Total Protein 6.1 L 6.0 L (6.2-8.2) g/dL Albumin 3.6 L 3.5 L (3.8-4.9) g/dL Albumin/Globulin Ratio 1.44 L 1.40 L (1.60-3.17) Ratio Microbiology - Last 24 Hours (Table) 10/13/24 01:42 Blood Culture - Preliminary Blood Assessment and Plan (1) Sepsis Current Visit: Yes Status: Acute Code(s): A41.9 - SEPSIS, UNSPECIFIED ORGANISM SNOMED Code(s): 95654535 (2) Perforated appendicitis Current Visit: Yes Status: Acute Code(s): K35.32 - AC APPENDICITIS W PERF, LOC PERITONITIS, & GANGR, W/O ABSCS SNOMED Code(s): 18154641 (3) Peritonitis Current Visit: Yes Status: Acute Code(s): K65.9 - PERITONITIS, UNSPECIFIED SNOMED Code(s): 30776098 Plan: 1patient with admission to hospital with sepsis in this patient did have fever elevated white count meeting criteria for SIRS source is acute appendicitis with microperforation and likely concerning for secondary peritonitis and need to cover for the enteric gram-negative both aerobes and anaerobes with persistent worsening of the white despite being on Zosyn with a question of possible additional pathogen such as Celeste that is not covered with the Zosyn 2-we will add Diflucan and see clinical response,. continue with Zosyn Question concern answered We will follow on clinical condition and cultures to further adjust medication if needed Thank you for this consultation we will follow the patient along with you Dictation was produced using [employer] dictation software. please excuse any grammatical, word or spelling errors. Time with Patient: Greater than 30
[2024-10-17 11:07] LABS: HCT 35.9 % (39.6-50.0); MCH 29.1 pg (27.0-32.0); MCHC 33.4 g/dL (32.0-37.0); MCV 87.1 fL (80.0-97.0); Mean Platelet Volume 10.2 fL (9.5-12.2); Platelet Count 319 10*3/uL (140-440); RBC 4.12 10*6/uL (4.40-5.60); RDW 14.9 % (11.5-14.5); WBC 14.35 10*3/uL (4.50-10.00)
[2024-10-17 13:56] LABS: Band Neutrophils % 1 %; Lymphocytes # (M) 3.01 k/uL (1.0-4.8); Metamyelocytes # (M) 0.14 k/uL (0); Metamyelocytes % 1 %; Monocytes # (M) 0.43 k/uL (0-1.0); Neutrophils # (M) 10.76 k/uL (1.3-7.7); Neutrophils % (M) 74 %; Nucleated Red Blood Cells 0 /100 WBC (0-0); Reactive Lymphocytes Present; Total Cells Counted 100
[2024-10-17] MEDS: FUROSEMIDE 10 MG/ML 4 ML VIAL IV STA (14:30)
--- NOTE | 2024-10-17 14:32 | P.PN ---
Subjective Progress Note Date: 10/17/24 SURGICAL PROGRESS NOTE CHIEF COMPLAINT: Appendicitis with microperforation HISTORY OF PRESENT ILLNESS: Patient is postop day# 4 status post laparoscopic appendectomy. Patient's pain is controlled. He is having bowel movements. Tolerated the full liquid diet. BENI drain 10 mL serous output. Afebrile. WBC is down from 17-14 PHYSICAL EXAM: VITAL SIGNS: Reviewed. GENERAL: Well-developed in no acute distress. HEENT: No sclera icterus. Extraocular movements grossly intact. Moist buccal mucosa. Head is atraumatic, normocephalic. ABDOMEN: Soft. Nondistended. Minimal tenderness at incision sites. Incision sites clean dry and intact. BENI drain serous NEUROLOGIC: Alert and oriented. Cranial nerves II through XII grossly intact. ASSESSMENT: 1. Acute appendicitis with microperforation PLAN: -Repeat CBC in a.m. -Advance diet to regular -Antibiotics per ID service -Increase activity level -Anticipate discharge tomorrow - DVT prophylaxis Lovenox Physician [employer] note has been reviewed by physician. Signing provider agrees with the documented findings, assessment, and plan of care. Objective - Vital Signs Vital signs: Vital Signs Temp 99.0 F 10/17/24 07:10 Pulse 97 10/17/24 07:10 Resp 17 10/17/24 07:10 BP 161/87 10/17/24 07:10 Pulse Ox 92 L 10/17/24 07:10 FiO2 Intake & Output 10/16/24 10/17/24 10/17/24 18:59 06:59 18:59 Intake Total 360 Output Total 700 1705 20 Balance -700 -1345 -20 Intake: Oral 360 Output: Drainage 5 20 Right Lower Abdomen 5 20 Urine 700 1700 Other: Voiding Method Toilet Toilet # Voids 4 3 - Labs CBC & Chem 7: 10/17/24 10:22 10/16/24 05:01 Labs: Abnormal Lab Results - Last 24 Hours (Table) 10/17/24 Range/Units 10:22 WBC 14.35 H (4.50-10.00) 10*3/uL RBC 4.12 L (4.40-5.60) 10*6/uL Hgb 12.0 L (13.0-17.0) g/dL Hct 35.9 L (39.6-50.0) % RDW 14.9 H (11.5-14.5) % Immature Gran # 0.97 H (0.00-0.04) 10*3/uL Neutrophils # (Manual) 10.76 H (1.3-7.7) k/uL Metamyelocytes # (Man) 0.14 H (0) k/uL Microbiology - Last 24 Hours (Table) 10/13/24 01:42 Blood Culture - Preliminary Blood
--- NOTE | 2024-10-17 14:35 | P.PN ---
Subjective Progress Note Date: 10/17/24 79 year old M with PMH of HTN, HLD, Depression, h/o melanoma/basal cell skin CA presented to the ED for RLQ abdominal pain for the past 3 days. In the ED he underwent extensive evaluation. BP 166/105, HR 116, T 99.6F, RR 18. CBC, Coag panel, CMP significant for WBC 18.1, Na 134, BUN 23, glu 176. Lactic acid 1. Amylase 59, Lipase 200. UA neg LE or nitrite. CT AP confirmed appendicitis. Started on Zosyn. Surgery consulted, underwent appendectomy on 10/13. 10/15 Patient was seen and examined. Reports episode of vomiting last night. Urinating freely. No bowel movement but passing gas. Antibiotics include Zosyn 3.75 g IV TID. CBC significant for WBC 17.4, Hg 12.7. CMP pending at the time of this note. 10/16 Patient was seen and examined. He reports right sided chest pain that started last night. Pain is burning in nature, worse with eating. Associated with shortness of breath. Pain improved with deep inspiration. Antibiotics include Zosyn 3.75 g IV TID. CBC and CMP significant for WBC 17.09, RBC 4.23, Hg 11.9, Hct 37.5, BUN/Cr 26.44, glu 133, alb 3.5. 10/17 Patient was seen and examined. Able to have a bowel movement. Improved chest pain, only when he drinks cold liquids. ID consulted for persistent leukocytosis, Diflucan 100 mg IV QD added along with Zosyn 3.75g IV TID. Troponin done yesterday < 0.012, with EKG showing sinus tachycardia with RBBB. CXR done yesterday showed bilateral pleural effusions with right basilar atelectasis. CBC done today shows WBC 14.35, RBC 4.12, Hg 12, Hct 35.9. General: non toxic, no distress, appears older than stated age Derm: warm, dry Head: atraumatic, normocephalic, symmetric Mouth: no lip lesion, mucus membranes moist Cardiovascular: S1 S2 tachy. No murmur. Lungs: Clear to auscultation bilaterally, no accessory muscle use Abd: BENI drain in tact. + BS. Non tender to palpation Ext: no gross muscle atrophy, no edema, no contractures Neuro: No focal neurologic deficits. Psych: Alert and oriented. Based on my assessment of this patient, this patient meets a high complexity level of care. Acute hypoxic respiratory failure secondary to atelectasis and pleural effusion: Incentive spirometer. CXR with bilateral pleural effusions status post Lasix 40 mg IV x 1 on 10/16 and 10/17. Obtain Echo. Right sided chest pain: Likely related to GI. Recommend EGD outpatient. Trop negative with EKG showing no ST T wave changes. CXR with bilateral pleural effusions. Sepsis secondary to appendicitis: Status post appendectomy 10/13. Continue Zosyn 3.75g IV TID. ID has added Diflucan 100 mg IV QD. BCx prelim neg so far. Continue regular diet. Zofran 4 mg IV Q6H PRN. Pain management with Dilaudid 0.5-1 mg IV Q3H PRN, [place] 5-325 mg Q4 PRN, Tylenol 650 mg PO Q6H PRN. DC IVF and encourage hydration by mouth. Surgery and ID on board. Acute blood loss anemia which is an expected result of surgery. CLYDE on CKD stage II: IV hydration as above. Alcohol use: Not in withdrawal. CIWA protocol with Ativan PO as needed. Depression: Celexa 40 mg PO QHS. Hypertension: BP 161/87. Lisinopril 20 mg PO QD. Obesity: BMI 36. Recommend structured weight loss program. Resolved: Transaminitis CODE STATUS: FULL CODE DVT Prophylaxis: Lovenox SQ GI Prophylaxis: Pepcid Designated medical POA if patient is not able to make medical decisions for themselves: I have reviewed the following industrial methods consultant notes: Surgery, ID. I have reviewed the results of the following tests: CBC. Trop. I have ordered the following tests: CBC, BMP, Mag in the AM. I have discussed the care of this patient with the following independent historian: I have independently interpreted the following test below: CXR, EKG. I have discussed the management of this patient with the following physician: Objective - Vital Signs Vital signs: Vital Signs Temp 99.0 F 10/17/24 07:10 Pulse 97 10/17/24 07:10 Resp 17 10/17/24 07:10 BP 161/87 10/17/24 07:10 Pulse Ox 92 L 10/17/24 07:10 FiO2 Intake & Output 10/16/24 10/17/24 10/17/24 18:59 06:59 18:59 Intake Total 360 Output Total 700 1705 20 Balance -664 -5565 -20 Intake: Oral 360 Output: Drainage 5 20 Right Lower Abdomen 5 20 Urine 700 1700 Other: Voiding Method Toilet Toilet # Voids 4 3 - Labs CBC & Chem 7: 10/17/24 10:22 10/16/24 05:01 Labs: Abnormal Lab Results - Last 24 Hours (Table) 10/17/24 Range/Units 10:22 WBC 14.35 H (4.50-10.00) 10*3/uL RBC 4.12 L (4.40-5.60) 10*6/uL Hgb 12.0 L (13.0-17.0) g/dL Hct 35.9 L (39.6-50.0) % RDW 14.9 H (11.5-14.5) % Immature Gran # 0.97 H (0.00-0.04) 10*3/uL Neutrophils # (Manual) 10.76 H (1.3-7.7) k/uL Metamyelocytes # (Man) 0.14 H (0) k/uL Microbiology - Last 24 Hours (Table) 10/13/24 01:42 Blood Culture - Preliminary Blood
--- NOTE | 2024-10-17 15:23 | CDI ---
Documentation Clarification Form Date: 10/17/2024 02:30:55 PM From: Rosalee Jeffries RN, CCDS Phone: [phone] Admit Date: 10/14/2024 07:28:00 AM Patient Name: Jason Flores Visit Number: [id number] Discharge Date: ATTENTION: The Clinical Documentation Specialists (CDI) and [facility] Coding Staff appreciate your assistance in clarifying documentation. Please respond to the clarification below the line at the bottom and electronically sign. The CDI & [facility] Coding staff will review the response and follow-up if needed. Please note: Queries are made part of the Legal Health Record. If you have any questions, please contact the author of this message via ITS. Doctor. April Lynn Acute hypoxic respiratory failure is documented in the attending progress notes starting on 10/15/24 which may lack sufficient clinical evidence/support in the medical record. Additional clarification is requested. History/Risk Factors: Skin Cancer, Hyperlipidemia, Hypertension, Clinical Indicators: 79-year-old male present with complaints of abdominal pain. 08/15/24 Had a Laparoscopic appendectomy and found, Acute appendicitis with microperforation. 85/82 111 19 98.1 92% Room air 10/16 (07:45) 186/94 108 18 95% 3/L NC 10/15 Lungs: Clear to auscultation bilaterally, no accessory muscle use Treatment: DuoNeb's Per orders Incentive Spirometer Encourage patient to increase activity lever Please clarify if acute hypoxic respiratory failure is a valid diagnosis? [x ] No, acute hypoxic respiratory failure is ruled out [ ] Yes, acute hypoxic respiratory failure is present as evidence by (additional clinical support): [ ] Other (please specify diagnosis) [ ] Unable to determine (Template Last Revised: November 2023) MTDD
[2024-10-18 04:24] LABS: HCT 36.9 % (39.6-50.0); HGB 12.3 g/dL (13.0-17.0); MCH 28.9 pg (27.0-32.0); MCHC 33.3 g/dL (32.0-37.0); MCV 86.6 fL (80.0-97.0); Mean Platelet Volume 9.7 fL (9.5-12.2); Platelet Count 308 10*3/uL (140-440); RBC 4.26 10*6/uL (4.40-5.60); WBC 15.46 10*3/uL (4.50-10.00)
[2024-10-18 04:42] LABS: African American GFR (CKD) 77 (>60 ml/min/1.73 sqM); Anion Gap 10 mmol/L; Blood Urea Nitrogen 26 mg/dL (9-20); Calcium 9.2 mg/dL (8.4-10.2); Carbon Dioxide 30 mmol/L (22-30); Chloride 95 mmol/L (98-107); Glucose 109 mg/dL (74-99); Magnesium 1.8 mg/dL (1.6-2.3); Non-African American GFR(CKD) 67 (>60 ml/min/1.73 sqM); Potassium 3.3 mmol/L (3.5-5.1); Sodium 135 mmol/L (137-145)
--- NOTE | 2024-10-18 08:11 | P.PN ---
Subjective Progress Note Date: 10/17/24 Principal diagnosis: Reason for follow-up is acute appendicitis and leukocytosis Patient is a 79-year-old male with a past medical history significant for hypertension hyperlipidemia osteoarthritis melanoma, presenting to the hospital with abdominal pain has been diagnosed with acute appendicitis with microperforation status post laparoscopic appendectomy, ID consulted because of persistent elevated white count. On today's evaluation that is 10/17/2024, Patient is afebrile this morning patient denies having any chest pain shortness of breath or cough, the patient is currently on room air, patient denies any abdominal pain no diarrhea no nausea no vomiting. Patient white count is down to 14.35 Objective - Vital Signs Vital signs: Vital Signs Temp 99.0 F 10/17/24 07:10 Pulse 97 10/17/24 07:10 Resp 17 10/17/24 07:10 BP 161/87 10/17/24 07:10 Pulse Ox 92 L 10/17/24 07:10 FiO2 Intake & Output 10/16/24 10/17/24 10/17/24 18:59 06:59 18:59 Intake Total 360 Output Total 700 1705 Balance -700 -1345 Intake: Oral 360 Output: Drainage 5 Right Lower Abdomen 5 Urine 700 1700 Other: Voiding Method Toilet Toilet # Voids 4 3 - Exam GENERAL DESCRIPTION: An elderly male in the chair in no distress RESPIRATORY SYSTEM: Unlabored breathing , decreased breath sounds at bases HEART: S1 S2 regular rate and rhythm , ABDOMEN: Soft , no tenderness EXTREMITIES: No edema feet - Labs CBC & Chem 7: 10/18/24 03:55 10/18/24 03:55 Labs: Abnormal Lab Results - Last 24 Hours (Table) 10/17/24 Range/Units 10:22 WBC 14.35 H (4.50-10.00) 10*3/uL RBC 4.12 L (4.40-5.60) 10*6/uL Hgb 12.0 L (13.0-17.0) g/dL Hct 35.9 L (39.6-50.0) % RDW 14.9 H (11.5-14.5) % Immature Gran # 0.97 H (0.00-0.04) 10*3/uL Microbiology - Last 24 Hours (Table) 10/13/24 01:42 Blood Culture - Preliminary Blood Assessment and Plan (1) Sepsis Current Visit: Yes Status: Acute Code(s): A41.9 - SEPSIS, UNSPECIFIED ORGANISM SNOMED Code(s): 59087201 (2) Perforated appendicitis Current Visit: Yes Status: Acute Code(s): K35.32 - AC APPENDICITIS W PERF, LOC PERITONITIS, & GANGR, W/O ABSCS SNOMED Code(s): 64449013 (3) Peritonitis Current Visit: Yes Status: Acute Code(s): K65.9 - PERITONITIS, UNSPECIFIED SNOMED Code(s): 05189445 Plan: 1patient with admission to hospital with sepsis in this patient did have fever elevated white count meeting criteria for SIRS source is acute appendicitis with microperforation and likely concerning for secondary peritonitis and need to cover for the enteric gram-negative both aerobes and anaerobes with persistent worsening of the white despite being on Zosyn with a question of possible additional pathogen such as [place] that is not covered with the Zosyn 2-patient white count is trending down down to 14,000 we will continue Zosyn and Diflucan monitor clinical course closely Dictation was produced using yuback dictation software. please excuse any grammatical, word or spelling errors. Time with Patient: Less than 30
--- NOTE | 2024-10-18 11:56 | P.PN ---
Subjective Progress Note Date: 10/18/24 79 year old M with PMH of HTN, HLD, Depression, h/o melanoma/basal cell skin CA presented to the ED for RLQ abdominal pain for the past 3 days. In the ED he underwent extensive evaluation. BP 166/105, HR 116, T 99.6F, RR 18. CBC, Coag panel, CMP significant for WBC 18.1, Na 134, BUN 23, glu 176. Lactic acid 1. Amylase 59, Lipase 200. UA neg LE or nitrite. CT AP confirmed appendicitis. Started on Zosyn. Surgery consulted, underwent appendectomy on 10/13. 10/15 Patient was seen and examined. Reports episode of vomiting last night. Urinating freely. No bowel movement but passing gas. Antibiotics include Zosyn 3.75 g IV TID. CBC significant for WBC 17.4, Hg 12.7. CMP pending at the time of this note. 10/16 Patient was seen and examined. He reports right sided chest pain that started last night. Pain is burning in nature, worse with eating. Associated with shortness of breath. Pain improved with deep inspiration. Antibiotics include Zosyn 3.75 g IV TID. CBC and CMP significant for WBC 17.09, RBC 4.23, Hg 11.9, Hct 37.5, BUN/Cr 26.44, glu 133, alb 3.5. 10/17 Patient was seen and examined. Able to have a bowel movement. Improved chest pain, only when he drinks cold liquids. ID consulted for persistent leukocytosis, Diflucan 100 mg IV QD added along with Zosyn 3.75g IV TID. Troponin done yesterday < 0.012, with EKG showing sinus tachycardia with RBBB. CXR done yesterday showed bilateral pleural effusions with right basilar atelectasis. CBC done today shows WBC 14.35, RBC 4.12, Hg 12, Hct 35.9. 10/18 Patient was seen and examined. No chest pain. Tolerating diet well. CBC and BMP significant for WBC 15.46, RBC 4.26, Hg 12.3, Hct 36.9, Na 135, K 3.3, Cl 95, BUN 26, glu 109. Mag 1.8. Discussed with Dr. Hinds and Letitia CAMPBELL, repeat CBC in the AM, if leukocytosis elevated of persistent, obtain CT AP. General: non toxic, no distress, appears older than stated age Derm: warm, dry Head: atraumatic, normocephalic, symmetric Mouth: no lip lesion, mucus membranes moist Cardiovascular: S1 S2 tachy. No murmur. Lungs: Clear to auscultation bilaterally, no accessory muscle use Abd: BENI drain in tact. + BS. Non tender to palpation Ext: no gross muscle atrophy, no edema, no contractures Neuro: No focal neurologic deficits. Psych: Alert and oriented. Based on my assessment of this patient, this patient meets a high complexity level of care. Acute hypoxic respiratory failure secondary to atelectasis and pleural effusion: Incentive spirometer. CXR with bilateral pleural effusions status post Lasix 40 mg IV x 1 on 10/16 and 10/17. Echo pending. Right sided chest pain: Likely related to GI. Recommend EGD outpatient. Trop negative with EKG showing no ST T wave changes. CXR with bilateral pleural effusions. Sepsis secondary to appendicitis: Status post appendectomy 10/13. Continue Zosyn 3.75g IV TID. ID has added Diflucan 100 mg IV QD. BCx prelim neg so far. Continue regular diet. Zofran 4 mg IV Q6H PRN. Pain management with Dilaudid 0.5-1 mg IV Q3H PRN, [place] 5-325 mg Q4 PRN, Tylenol 650 mg PO Q6H PRN. DC IVF and encourage hydration by mouth. Surgery and ID on board. Acute blood loss anemia which is an expected result of surgery. Hypokalemia: KCl 40 meq PO x 1. Repeat BMP in the AM. CKD stage II: IV hydration as above. Alcohol use: Not in withdrawal. CIWA protocol with Ativan PO as needed. Depression: Celexa 40 mg PO QHS. Hypertension: BP 159/80. Lisinopril 20 mg PO QD. Obesity: BMI 36. Recommend structured weight loss program. Resolved: Transaminitis, CLYDE CODE STATUS: FULL CODE DVT Prophylaxis: Lovenox SQ GI Prophylaxis: Pepcid Designated medical POA if patient is not able to make medical decisions for themselves: I have reviewed the following client service consultant notes: I have reviewed the results of the following tests: CBC. BMP. I have ordered the following tests: CBC, BMP in the AM. I have discussed the care of this patient with the following independent historian: I have independently interpreted the following test below: I have discussed the management of this patient with the following physician: Letitia Castro NP Objective - Vital Signs Vital signs: Vital Signs Temp 97.9 F 10/18/24 07:38 Pulse 95 10/18/24 07:38 Resp 17 10/18/24 07:38 BP 159/80 10/18/24 07:38 Pulse Ox 92 L 10/18/24 07:53 FiO2 21 10/18/24 07:53 Intake & Output 10/17/24 10/18/24 10/18/24 18:59 06:59 18:59 Intake Total 500 1650 Output Total 20 5 Balance 480 1645 Intake: Oral 500 1650 Output: Drainage 20 5 Right Lower Abdomen 20 5 Other: Voiding Method Toilet Toilet # Voids 3 3 - Labs CBC & Chem 7: 10/18/24 03:55 10/18/24 03:55 Labs: Abnormal Lab Results - Last 24 Hours (Table) 10/17/24 10/18/24 10/18/24 Range/Units 10:22 03:55 03:55 WBC 15.46 H (4.50-10.00) 10*3/uL RBC 4.26 L (4.40-5.60) 10*6/uL Hgb 12.3 L (13.0-17.0) g/dL Hct 36.9 L (39.6-50.0) % RDW 15.0 H (11.5-14.5) % Neutrophils # (Manual) 10.76 H (1.3-7.7) k/uL Metamyelocytes # (Man) 0.14 H (0) k/uL Sodium 135 L (137-145) mmol/L Potassium 3.3 L (3.5-5.1) mmol/L Chloride 95 L (98-107) mmol/L BUN 26 H (9-20) mg/dL Glucose 109 H (74-99) mg/dL
[2024-10-18] MEDS: POTASSIUM CHLORIDE ER 20 MEQ TAB.ER PO STA (12:09)
--- NOTE | 2024-10-18 12:26 | P.PN ---
Subjective Progress Note Date: 10/18/24 SURGICAL PROGRESS NOTE CHIEF COMPLAINT: Appendicitis with microperforation HISTORY OF PRESENT ILLNESS: Patient is postop day# 5 status post laparoscopic appendectomy. He is sitting at bedside chair. Tolerated regular diet. Patient's pain is controlled. He is having bowel movements. Afebrile. WBC did go up from 14-15. BENI drain 5 mL serosanguineous output PHYSICAL EXAM: VITAL SIGNS: Reviewed. GENERAL: Well-developed in no acute distress. HEENT: No sclera icterus. Extraocular movements grossly intact. Moist buccal mucosa. Head is atraumatic, normocephalic. ABDOMEN: Soft. Nondistended. Minimal tenderness at incision sites. Incision sites clean dry and intact. BENI drain serosanguineous NEUROLOGIC: Alert and oriented. Cranial nerves II through XII grossly intact. ASSESSMENT: 1. Acute appendicitis with microperforation PLAN: -Continue to monitor due to increase in white count -Repeat CBC in a.m. -Continue regular diet -Antibiotics per ID service -Increase activity level - DVT prophylaxis Lovenox Physician Test Engine Operator note has been reviewed by physician. Signing provider agrees with the documented findings, assessment, and plan of care. Objective - Vital Signs Vital signs: Vital Signs Temp 97.9 F 10/18/24 07:38 Pulse 95 10/18/24 07:38 Resp 17 10/18/24 07:38 BP 159/80 10/18/24 07:38 Pulse Ox 92 L 10/18/24 07:53 FiO2 21 10/18/24 07:53 Intake & Output 10/17/24 10/18/24 10/18/24 18:59 06:59 18:59 Intake Total 500 1650 Output Total 20 5 Balance 480 1645 Intake: Oral 500 1650 Output: Drainage 20 5 Right Lower Abdomen 20 5 Other: Voiding Method Toilet Toilet # Voids 3 3 - Labs CBC & Chem 7: 10/18/24 03:55 10/18/24 03:55 Labs: Abnormal Lab Results - Last 24 Hours (Table) 10/17/24 10/18/24 10/18/24 Range/Units 10:22 03:55 03:55 WBC 15.46 H (4.50-10.00) 10*3/uL RBC 4.26 L (4.40-5.60) 10*6/uL Hgb 12.3 L (13.0-17.0) g/dL Hct 36.9 L (39.6-50.0) % RDW 15.0 H (11.5-14.5) % Neutrophils # (Manual) 10.76 H (1.3-7.7) k/uL Metamyelocytes # (Man) 0.14 H (0) k/uL Sodium 135 L (137-145) mmol/L Potassium 3.3 L (3.5-5.1) mmol/L Chloride 95 L (98-107) mmol/L BUN 26 H (9-20) mg/dL Glucose 109 H (74-99) mg/dL
--- NOTE | 2024-10-18 15:19 | P.PN ---
Subjective Progress Note Date: 10/18/24 Principal diagnosis: Reason for follow-up is acute appendicitis and leukocytosis Patient is a 79-year-old male with a past medical history significant for hypertension hyperlipidemia osteoarthritis melanoma, presenting to the hospital with abdominal pain has been diagnosed with acute appendicitis with microperforation status post laparoscopic appendectomy, ID consulted because of persistent elevated white count. On today's evaluation that is 10/18/2024,the patient denies any fever or any chills, patient is breathing comfortably on room air, the patient denies chest pain shortness of breath and no significant cough, patient denies abdominal pain, no nausea vomiting or diarrhea. Patient white count slightly up to 15.46 today, creatinine is 1.07 blood culture have been negative Objective - Vital Signs Vital signs: Vital Signs Temp 97.9 F 10/18/24 07:38 Pulse 95 10/18/24 07:38 Resp 17 10/18/24 07:38 BP 159/80 10/18/24 07:38 Pulse Ox 92 L 10/18/24 07:53 FiO2 21 10/18/24 07:53 Intake & Output 10/17/24 10/18/24 10/18/24 18:59 06:59 18:59 Intake Total 500 1650 Output Total 20 5 Balance 480 1645 Intake: Oral 500 1650 Output: Drainage 20 5 Right Lower Abdomen 20 5 Other: Voiding Method Toilet Toilet # Voids 3 3 - Exam GENERAL DESCRIPTION: An elderly male in the chair in no distress RESPIRATORY SYSTEM: Unlabored breathing , decreased breath sounds at bases HEART: S1 S2 regular rate and rhythm , ABDOMEN: Soft , no tenderness EXTREMITIES: No edema feet - Labs CBC & Chem 7: 10/18/24 03:55 10/18/24 03:55 Labs: Abnormal Lab Results - Last 24 Hours (Table) 10/17/24 10/18/24 10/18/24 Range/Units 10:22 03:55 03:55 WBC 15.46 H (4.50-10.00) 10*3/uL RBC 4.26 L (4.40-5.60) 10*6/uL Hgb 12.3 L (13.0-17.0) g/dL Hct 36.9 L (39.6-50.0) % RDW 15.0 H (11.5-14.5) % Neutrophils # (Manual) 10.76 H (1.3-7.7) k/uL Metamyelocytes # (Man) 0.14 H (0) k/uL Sodium 135 L (137-145) mmol/L Potassium 3.3 L (3.5-5.1) mmol/L Chloride 95 L (98-107) mmol/L BUN 26 H (9-20) mg/dL Glucose 109 H (74-99) mg/dL Assessment and Plan (1) Sepsis Current Visit: Yes Status: Acute Code(s): A41.9 - SEPSIS, UNSPECIFIED ORGANISM SNOMED Code(s): 66797144 (2) Perforated appendicitis Current Visit: Yes Status: Acute Code(s): K35.32 - AC APPENDICITIS W PERF, LOC PERITONITIS, & GANGR, W/O ABSCS SNOMED Code(s): 45948553 (3) Peritonitis Current Visit: Yes Status: Acute Code(s): K65.9 - PERITONITIS, UNSPECIFIED SNOMED Code(s): 99587672 Plan: 1patient with admission to hospital with sepsis in this patient did have fever elevated white count meeting criteria for SIRS source is acute appendicitis with microperforation and likely concerning for secondary peritonitis and need to cover for the enteric gram-negative both aerobes and anaerobes with persistent worsening of the white despite being on Zosyn with a question of possible additional pathogen such as [place] that is not covered with the Zosyn 2-patient white count is up today, to hold the discharge today we will repeat his CBC tomorrow the white count is trending down transition to oral antibiotic otherwise will need a CT of there is still worsening of the white count this was discussed with admitting team 3for now continue with Zosyn and Diflucan Dictation was produced using [employer] dictation software. please excuse any grammatical, word or spelling errors. Time with Patient: Less than 30
[2024-10-18] MEDS ORDERED: HYDROmorphone 1 MG/ML 1 ML SYRINGE IVP PRN (20:21)
[2024-10-19 08:55] LABS: Basophils # (M) 0 X 10*3/uL (0.00-0.10); Eosinophils # (M) 0.34 X 10*3/uL (0.04-0.35); HCT 36.6 % (39.6-50.0); HGB 11.9 g/dL (13.0-17.0); Lymphocytes # (M) 0.67 X 10*3/uL (0.90-5.00); MCH 28.4 pg (27.0-32.0); MCHC 32.5 g/dL (32.0-37.0); MCV 87.4 FL (80.0-97.0); Mean Platelet Volume 10.3 FL (9.5-12.2); Metamyelocytes % 1 % (0-0); Monocytes # (M) 1.18 X 10*3/uL (0.20-1.00); Myelocytes % 1 % (0-0); NRBC Per 100 WBC 0 X 10*3/uL (0.00-0.01); Neutrophils % (M) 85 %; Platelet Count 325 X 10*3/uL (140-440); RBC 4.19 X 10*6/uL (4.40-5.60); RDW 15.2 % (11.5-14.5); WBC 16.82 X 10*3/uL (4.50-10.00)
[2024-10-19 09:11] LABS: ALT 57 U/L (10-49); AST 32 U/L (14-35); Albumin 3.2 g/dL (3.8-4.9); Albumin/Globulin Ratio 1.28 Ratio (1.60-3.17); Alkaline Phosphatase 105 U/L (41-126); Blood Urea Nitrogen 24.5 mg/dL (9.0-27.0); Chloride 100 mmol/L (96-109); Globulin 2.5 g/dL (1.6-3.3); Glucose 109 mg/dL (70-110); Potassium 3.6 mmol/L (3.5-5.5); Sodium 138 mmol/L (135-145); Total Bilirubin 0.3 mg/dL (0.3-1.2); Total Protein 5.7 g/dL (6.2-8.2)
[2024-10-19] MEDS: IOPAMIDOL CONTRAST (ORAL USE) VIAL PO PRN (10:30)
--- NOTE | 2024-10-19 11:55 | P.PN ---
Subjective Progress Note Date: 10/19/24 79 year old M with PMH of HTN, HLD, Depression, h/o melanoma/basal cell skin CA presented to the ED for RLQ abdominal pain for the past 3 days. In the ED he underwent extensive evaluation. BP 166/105, HR 116, T 99.6F, RR 18. CBC, Coag panel, CMP significant for WBC 18.1, Na 134, BUN 23, glu 176. Lactic acid 1. Amylase 59, Lipase 200. UA neg LE or nitrite. CT AP confirmed appendicitis. Started on Zosyn. Surgery consulted, underwent appendectomy on 10/13. 10/15 Patient was seen and examined. Reports episode of vomiting last night. Urinating freely. No bowel movement but passing gas. Antibiotics include Zosyn 3.75 g IV TID. CBC significant for WBC 17.4, Hg 12.7. CMP pending at the time of this note. 10/16 Patient was seen and examined. He reports right sided chest pain that started last night. Pain is burning in nature, worse with eating. Associated with shortness of breath. Pain improved with deep inspiration. Antibiotics include Zosyn 3.75 g IV TID. CBC and CMP significant for WBC 17.09, RBC 4.23, Hg 11.9, Hct 37.5, BUN/Cr 26.44, glu 133, alb 3.5. 10/17 Patient was seen and examined. Able to have a bowel movement. Improved chest pain, only when he drinks cold liquids. ID consulted for persistent leukocytosis, Diflucan 100 mg IV QD added along with Zosyn 3.75g IV TID. Troponin done yesterday < 0.012, with EKG showing sinus tachycardia with RBBB. CXR done yesterday showed bilateral pleural effusions with right basilar atelectasis. CBC done today shows WBC 14.35, RBC 4.12, Hg 12, Hct 35.9. 10/18 Patient was seen and examined. No chest pain. Tolerating diet well. CBC and BMP significant for WBC 15.46, RBC 4.26, Hg 12.3, Hct 36.9, Na 135, K 3.3, Cl 95, BUN 26, glu 109. Mag 1.8. Discussed with Dr. Hinds and Letitia CAMPBELL, repeat CBC in the AM, if leukocytosis elevated of persistent, obtain CT AP. 10/19 Patient was seen and examined. Doing well. Tolerating diet well. CBC and BMP significant for WBC 16.82, RBC 4.19, Hg 11.9, Hct 36.6, AG 13, BUN/Cr 24.5, ALT 57, alb 3.2. CRP 14.7. Antibiotics include Zosyn 3.75g IV TID and Fluconazole 100 mg IV QD. Discussed with Dr. Hinds, will proceed with CT AP. General: non toxic, no distress, appears older than stated age Derm: warm, dry Head: atraumatic, normocephalic, symmetric Mouth: no lip lesion, mucus membranes moist Cardiovascular: S1 S2 tachy. No murmur. Lungs: Clear to auscultation bilaterally, no accessory muscle use Abd: BENI drain in tact. + BS. Non tender to palpation Ext: no gross muscle atrophy, no edema, no contractures Neuro: No focal neurologic deficits. Psych: Alert and oriented. Based on my assessment of this patient, this patient meets a high complexity level of care. Sepsis secondary to appendicitis: Status post appendectomy 10/13. Continue Zosyn 3.75g IV TID. ID has added Diflucan 100 mg IV QD. BCx prelim neg so far. Continue regular diet. Zofran 4 mg IV Q6H PRN. Pain management with Dilaudid 0.5-1 mg IV Q3H PRN, [place] 5-325 mg Q4 PRN, Tylenol 650 mg PO Q6H PRN. DC IVF and encourage hydration by mouth. Obtain CT AP. Surgery and ID on board. Acute hypoxic respiratory failure secondary to atelectasis and pleural effusion: Incentive spirometer. CXR with bilateral pleural effusions status post Lasix 40 mg IV x 1 on 10/16 and 10/17. Echo pending. Right sided chest pain: Likely related to GI. Recommend EGD outpatient. Trop negative with EKG showing no ST T wave changes. CXR with bilateral pleural effusions. Acute blood loss anemia which is an expected result of surgery. CKD stage II: At baseline. Alcohol use: Not in withdrawal. CIWA protocol with Ativan PO as needed. Depression: Celexa 40 mg PO QHS. Hypertension: BP 180/90. Lisinopril 20 mg PO QD. Obesity: BMI 36. Recommend structured weight loss program. Resolved: Transaminitis, CLYDE, HypoK CODE STATUS: FULL CODE DVT Prophylaxis: Lovenox SQ GI Prophylaxis: Pepcid Designated medical POA if patient is not able to make medical decisions for themselves: I have reviewed the following account consultant notes: I have reviewed the results of the following tests: CBC. BMP. I have ordered the following tests: CT AP. I have discussed the care of this patient with the following independent historian: I have independently interpreted the following test below: I have discussed the management of this patient with the following physician: Dr. Hinds Objective - Vital Signs Vital signs: Vital Signs Temp 98.9 F 10/19/24 07:26 Pulse 99 10/19/24 07:26 Resp 16 10/19/24 07:26 BP 180/90 10/19/24 07:26 Pulse Ox 92 L 10/19/24 07:26 FiO2 21 10/18/24 07:53 Intake & Output 10/18/24 10/19/24 10/19/24 18:59 06:59 18:59 Output Total 0 Balance 0 Output: Drainage 0 Right Lower Abdomen 0 Other: Voiding Method Toilet # Voids 3 3 # Bowel Movements 1 - Labs CBC & Chem 7: 10/19/24 03:12 10/19/24 03:12 Labs: Abnormal Lab Results - Last 24 Hours (Table) 10/19/24 10/19/24 Range/Units 03:12 03:12 WBC 16.82 H (4.50-10.00) X 10*3/uL RBC 4.19 L (4.40-5.60) X 10*6/uL Hgb 11.9 L (13.0-17.0) g/dL Hct 36.6 L (39.6-50.0) % RDW 15.2 H (11.5-14.5) % Neutrophils # (Manual) 14.30 H (1.80-7.70) X 10*3/uL Lymphocytes # (Manual) 0.67 L (0.90-5.00) X 10*3/uL Monocytes # (Manual) 1.18 H (0.20-1.00) X 10*3/uL Anion Gap 13.00 H (4.00-12.00) mmol/L BUN/Creatinine Ratio 24.50 H (12.00-20.00) Ratio ALT 57 H (10-49) U/L C-Reactive Protein 14.70 H (0.00-0.80) mg/dL Total Protein 5.7 L (6.2-8.2) g/dL Albumin 3.2 L (3.8-4.9) g/dL Albumin/Globulin Ratio 1.28 L (1.60-3.17) Ratio Microbiology - Last 24 Hours (Table) 10/13/24 01:42 Blood Culture - Final Blood
--- NOTE | 2024-10-19 12:26 | CT ---
EXAMINATION TYPE: CT abdomen pelvis w con DATE OF EXAM: 10/19/2024 12:12 PM COMPARISON: 10/12/2024 CLINICAL INDICATION: Male, 79 years old with history of Leukocytosis; Leukocytosis TECHNIQUE: CT of the abdomen and pelvis after IV contrast. Delayed images through the kidneys and cor onal/sagittal reconstructions performed. Contrast used:100 ml mL of Isovue 300 with IV Contrast, (non e if empty) Oral contrast used: with Oral Contrast (none if empty) CT DLP: 2432.4 mGycm, Automated exposure control for dose reduction was used. FINDINGS: LOWER CHEST: Large caliber main right and left pulmonary arteries measuring up to 3.0 cm suggesting u nderlying pulmonary arterial dimension. LAD coronary artery calcifications are present. Calcified rig ht hilar lymph nodes compatible with prior granulomatous disease. There is development of a small rig ht pleural effusion and worsening patchy opacity in the posterior right lung base. Pneumonia should b e excluded. There is a tiny hiatal hernia. Liver is mildly enlarged 18.5 cm. A few scattered calcified granulomas are present in the liver. Chol ecystectomy clips. Portal venous system is patent. No biliary ductal dilatation. Adrenal glands, kidneys, and pancreas within normal limits. Calcified granulomas within the spleen. No dilated small bowel. There is a moderate-sized periumbilical hernia measuring 2.7 cm wide with some stranding in the herni a sac. Correlate for any local symptoms to exclude any inflammation within the hernia. Overall appear ance is similar. There is interval surgery with a surgical drain along the right side of the abdomen. The previous 1 cm appendicolith appears to be present still. There is persistent inflammation and str anding in this region. The well-defined appendix is no longer seen. However, there is a poorly define d loculated fluid and air during 2.3 cm in this region as well as an additional pocket measuring 4.3 cm showing a 7.6 cm long finger like extension (axial image 67 and coronal image 34). Some clustered right lower quadrant mesenteric lymph nodes measuring up to 1.1 cm likely reactive. No additional free air is seen. Mild circumferential bladder wall thickening. Prostate gland enlargement 5.1 cm wide. Pelvic phleboli ths. Trace pelvic free fluid. No pelvic lymphadenopathy. Patulous right greater than left inguinal ca nals. Bones: Previous right hip total arthroplasty. Moderate to advanced spondylotic change lumbar spine. IMPRESSION: 1. Interval surgery with a surgical drain along the right side of the abdomen. While a well-defined appendix is no longer seen, the 1 cm appendicolith remains and there are a couple locules of fluid an d air one measuring 2.3 cm. The larger one measuring 4.3 cm shows a 7.6 cm long fingerlike extension of fluid. Developing small intraperitoneal abscesses are considered. 2. Some reactive trace pelvic free fluid. 3. New small right pleural effusion with worsening opacity at the right base, either atelectasis or p neumonia. Correlate with symptoms. 4. Redemonstrated moderate sized umbilical hernia containing some strandy density. Correlate for any local symptoms to exclude inflammation here. [facility], , 10/19/2024 12:24 PM
--- NOTE | 2024-10-19 14:20 | P.PN ---
Subjective Progress Note Date: 10/19/24 SURGICAL PROGRESS NOTE CHIEF COMPLAINT: Appendicitis with microperforation HISTORY OF PRESENT ILLNESS: Patient is postop day# 6 status post laparoscopic appendectomy. Patient is up and moving around in his room. He is having bowel movements. He has no new complaints. Tolerating diet. BENI drain 20 mL serosanguineous output. WBC did go up to 16. Medicine service ordered a CT scan abdomen pelvis. There are couple locules of fluid and air measuring 2.3 cm. The larger one measuring 4.3 cm a 7.6 [place] long fingerlike extension of fluid. Developing small intraperitoneal abscesses are considered. Some reactive trace free fluid. New small right pleural effusion with worsening opacity in the right base either atelectasis or pneumonia. Redemonstration of moderate-sized umbilical hernia containing some strandy density. Correlate for any local symptoms to exclude inflammation here. PHYSICAL EXAM: VITAL SIGNS: Reviewed. GENERAL: Well-developed in no acute distress. HEENT: No sclera icterus. Extraocular movements grossly intact. Moist buccal mucosa. Head is atraumatic, normocephalic. ABDOMEN: Soft. Nondistended. Incision sites clean dry and intact. BENI drain serosanguineous NEUROLOGIC: Alert and oriented. Cranial nerves II through XII grossly intact. ASSESSMENT: 1. Acute appendicitis with microperforation 2. Intra-abdominal fluid collections noted on CT scan PLAN: -Consult interventional radiology service for possible drainage of fluid collections -Antibiotics per ID service -Continue to monitor BENI drain output -Repeat CBC in a.m. -Increase activity level - DVT prophylaxis Lovenox Physician Hvac Specialist note has been reviewed by physician. Signing provider agrees with the documented findings, assessment, and plan of care. Objective - Vital Signs Vital signs: Vital Signs Temp 98.9 F 10/19/24 07:26 Pulse 99 10/19/24 07:26 Resp 16 10/19/24 07:26 BP 180/90 10/19/24 07:26 Pulse Ox 92 L 10/19/24 07:26 FiO2 21 10/18/24 07:53 Intake & Output 10/18/24 10/19/24 10/19/24 18:59 06:59 18:59 Output Total 0 20 Balance 0 -20 Output: Drainage 0 20 Right Lower Abdomen 0 20 Other: Voiding Method Toilet # Voids 3 3 # Bowel Movements 1 - Labs CBC & Chem 7: 10/19/24 03:12 10/19/24 03:12 Labs: Abnormal Lab Results - Last 24 Hours (Table) 10/19/24 10/19/24 Range/Units 03:12 03:12 WBC 16.82 H (4.50-10.00) X 10*3/uL RBC 4.19 L (4.40-5.60) X 10*6/uL Hgb 11.9 L (13.0-17.0) g/dL Hct 36.6 L (39.6-50.0) % RDW 15.2 H (11.5-14.5) % Neutrophils # (Manual) 14.30 H (1.80-7.70) X 10*3/uL Lymphocytes # (Manual) 0.67 L (0.90-5.00) X 10*3/uL Monocytes # (Manual) 1.18 H (0.20-1.00) X 10*3/uL Anion Gap 13.00 H (4.00-12.00) mmol/L BUN/Creatinine Ratio 24.50 H (12.00-20.00) Ratio ALT 57 H (10-49) U/L C-Reactive Protein 14.70 H (0.00-0.80) mg/dL Total Protein 5.7 L (6.2-8.2) g/dL Albumin 3.2 L (3.8-4.9) g/dL Albumin/Globulin Ratio 1.28 L (1.60-3.17) Ratio Microbiology - Last 24 Hours (Table) 10/13/24 01:42 Blood Culture - Final Blood
--- NOTE | 2024-10-19 16:03 | CA ---
Transthoracic Echo Report Name: Jason Flores Age: 79 Gender: M : 1945 Exam Date: 10/19/2024 07:58 Exam Location: [place] [facility] Ht (in): 72 Wt (lb): 264 Ordering Physician: April Lynn MD Attending/Referring Phys: Progressive Assembler And Fitter Ana Mendosa RDCS Procedure CPT: Indications: pleural effusion Cardiac Hx: Technical Quality: Fair Contrast 1: Total Dose (mL): Contrast 2: Total Dose (mL): MEASUREMENTS (Male / Female) Normal Values 2D ECHO LV Diastolic Diameter PLAX 4.4 cm 4.2 - 5.9 / 3.9 - 5.3 cm LV Systolic Diameter PLAX 3.1 cm IVS Diastolic Thickness 1.4 cm 0.6 - 1.0 / 0.6 - 0.9 cm LVPW Diastolic Thickness 1.4 cm 0.6 - 1.0 / 0.6 - 0.9 cm LV Relative Wall Thickness 0.6 RV Internal Dim ED PLAX 4.0 cm LA Systolic Diameter LX 3.7 cm 3.0 - 4.0 / 2.7 - 3.8 cm LV Diastolic Volume MOD BP 134.3 cm??? 67 - 155 / 56 - 104 cm??? LV Systolic Volume MOD BP 48.9 cm??? - 58 / 19 - 49 cm??? LV Ejection Fraction MOD BP 63.6 % >= 55 % LV Cardiac Index MOD BP 3130.6 cm???/min???m??? LV Diastolic Volume MOD 4C 138.5 cm??? LV Systolic Volume MOD 4C 55.5 cm??? LV Ejection Fraction MOD 4C 60.0 % LV Cardiac Index MOD 4C 3047.0 cm???/min???m??? LV Diastolic Length 4C 9.1 cm LV Systolic Length 4C 6.8 cm LV Diastolic Volume MOD 2C 121.0 cm??? LV Systolic Volume MOD 2C 43.0 cm??? LV Ejection Fraction MOD 2C 64.5 % LV Cardiac Index MOD 2C 2860.6 cm???/min???m??? LV Diastolic Length 2C 8.3 cm LV Systolic Length 2C 6.5 cm LA Volume 64.0 cm??? 18 - 58 / 22 - 52 cm??? LA Volume Index 25.5 cm???/m??? 16 - 28 cm???/m??? M-MODE IVS Diastolic Thickness MM 3.7 cm 0.6 - 1.0 / 0.6 - 0.9 cm Aortic Root Diameter MM 3.6 cm AV Cusp Separation MM 2.2 cm DOPPLER AV Peak Velocity 169.8 cm/s AV Peak Gradient 11.5 mmHg MV Area PHT 3.4 cm??? Mitral E Point Velocity 88.4 cm/s Mitral A Point Velocity 135.9 cm/s Mitral E to A Ratio 0.7 MV Deceleration Time 226.4 ms TR Peak Velocity 276.5 cm/s TR Peak Gradient 30.6 mmHg Right Ventricular Systolic Press 35.6 mmHg FINDINGS Left Ventricle Left ventricular ejection fraction is estimated at 55-60 %. Left ventricular cavity size normal. Moderate concentric left ventricular hypertrophy. Right Ventricle Moderate right ventricular dilatation. Mild pulmonary hypertension. Right Atrium Mild right atrial dilatation. No right atrial thrombus or mass seen. Left Atrium Mildly increased left atrial volume. No left atrial thrombus or mass present. Mitral Valve Structurally normal mitral valve. No mitral stenosis, regurgitation or prolapse. Aortic Valve Trileaflet aortic valve. Thickened aortic valve without stenosis. Tricuspid Valve Structurally normal tricuspid valve. Mild tricuspid regurgitation. Pulmonic Valve Pulmonic valve not well visualized. No pulmonic regurgitation. Pericardium No pericardial effusion. Aorta Normal size aortic root and proximal ascending aorta. CONCLUSIONS Left ventricular ejection fraction 55 to 60% Moderate increased left ventricular wall thickness RVSP 35 Mild tricuspid regurgitation No pericardial effusion Previewed by: Dr. Azeem Greer DO (Electronically Signed) Final Date: 19 October 2024 16:02
--- NOTE | 2024-10-19 17:21 | P.PN ---
Subjective Progress Note Date: 10/19/24 Principal diagnosis: Reason for follow-up is acute appendicitis and leukocytosis Patient is a 79-year-old male with a past medical history significant for hypertension hyperlipidemia osteoarthritis melanoma, presenting to the hospital with abdominal pain has been diagnosed with acute appendicitis with microperforation status post laparoscopic appendectomy, ID consulted because of persistent elevated white count. On today's evaluation that is 10/19/2024,the patient remains to be afebrile, patient is on room air not requiring supplemental oxygen and denies any shor tness of breath no chest pain or cough.Patient denies having any nausea or vomiting, no abdominal pain and no diarrhea. Patient white count is up to 16.82, creat is 1.0 blood culture negative Objective - Vital Signs Vital signs: Vital Signs Temp 98.1 F 10/19/24 14:13 Pulse 94 10/19/24 14:13 Resp 16 10/19/24 07:26 BP 155/63 10/19/24 14:13 Pulse Ox 92 L 10/19/24 14:13 FiO2 21 10/18/24 07:53 Intake & Output 10/18/24 10/19/24 10/19/24 18:59 06:59 18:59 Output Total 0 20 Balance 0 -20 Output: Drainage 0 20 Right Lower Abdomen 0 20 Other: Voiding Method Toilet # Voids 3 3 # Bowel Movements 1 - Exam GENERAL DESCRIPTION: An elderly male in the chair in no distress RESPIRATORY SYSTEM: Unlabored breathing , decreased breath sounds at bases HEART: S1 S2 regular rate and rhythm , ABDOMEN: Soft , no tenderness EXTREMITIES: No edema feet - Labs CBC & Chem 7: 10/19/24 03:12 10/19/24 03:12 Labs: Abnormal Lab Results - Last 24 Hours (Table) 10/19/24 10/19/24 Range/Units 03:12 03:12 WBC 16.82 H (4.50-10.00) X 10*3/uL RBC 4.19 L (4.40-5.60) X 10*6/uL Hgb 11.9 L (13.0-17.0) g/dL Hct 36.6 L (39.6-50.0) % RDW 15.2 H (11.5-14.5) % Neutrophils # (Manual) 14.30 H (1.80-7.70) X 10*3/uL Lymphocytes # (Manual) 0.67 L (0.90-5.00) X 10*3/uL Monocytes # (Manual) 1.18 H (0.20-1.00) X 10*3/uL Anion Gap 13.00 H (4.00-12.00) mmol/L BUN/Creatinine Ratio 24.50 H (12.00-20.00) Ratio ALT 57 H (10-49) U/L C-Reactive Protein 14.70 H (0.00-0.80) mg/dL Total Protein 5.7 L (6.2-8.2) g/dL Albumin 3.2 L (3.8-4.9) g/dL Albumin/Globulin Ratio 1.28 L (1.60-3.17) Ratio Assessment and Plan (1) Sepsis Current Visit: Yes Status: Acute Code(s): A41.9 - SEPSIS, UNSPECIFIED ORGANISM SNOMED Code(s): 76704134 (2) Perforated appendicitis Current Visit: Yes Status: Acute Code(s): K35.32 - AC APPENDICITIS W PERF, LOC PERITONITIS, & GANGR, W/O ABSCS SNOMED Code(s): 03212394 (3) Peritonitis Current Visit: Yes Status: Acute Code(s): K65.9 - PERITONITIS, UNSPECIFIED SNOMED Code(s): 51295129 Plan: 1patient with admission to hospital with sepsis in this patient did have fever elevated white count meeting criteria for SIRS source is acute appendicitis with microperforation and likely concerning for secondary peritonitis and need to cover for the enteric gram-negative both aerobes and anaerobes with persistent worsening of the white despite being on Zosyn with a question of possible additional pathogen such as Celeste that is not covered with the Zosyn 2-patient white count is up today, subsequently the patient did have CT abdominal pelvis concerning for intra-abdominal abscess IR has been consulted for drainage of the abscess fluid should be sent for the culture 3for now continue with Zosyn and Diflucan while waiting for drainage and cultures Dictation was produced using [employer] dictation software. please excuse any grammatical, word or spelling errors. Time with Patient: Less than 30
[2024-10-20 05:06] LABS: HCT 38.3 % (39.6-50.0); HGB 12.5 g/dL (13.0-17.0); MCHC 32.6 g/dL (32.0-37.0); MCV 85.7 fL (80.0-97.0); Mean Platelet Volume 10.2 fL (9.5-12.2); Platelet Count 348 10*3/uL (140-440); RBC 4.47 10*6/uL (4.40-5.60); RDW 15.1 % (11.5-14.5); WBC 15.26 10*3/uL (4.50-10.00)
[2024-10-20 07:17] LABS: Eosinophils # (M) 0.31 k/uL (0-0.7); Lymphocytes # (M) 2.59 k/uL (1.0-4.8); Metamyelocytes # (M) 0.15 k/uL (0); Metamyelocytes % 1 %; Monocytes # (M) 0.61 k/uL (0-1.0); Neutrophils % (M) 78 %; Nucleated Red Blood Cells 0 /100 WBC (0-0); Total Cells Counted 200
[2024-10-20 07:33] LABS: RBC Morphology Normal
--- NOTE | 2024-10-20 11:27 | P.PN ---
Subjective Progress Note Date: 10/20/24 79 year old M with PMH of HTN, HLD, Depression, h/o melanoma/basal cell skin CA presented to the ED for RLQ abdominal pain for the past 3 days. In the ED he underwent extensive evaluation. BP 166/105, HR 116, T 99.6F, RR 18. CBC, Coag panel, CMP significant for WBC 18.1, Na 134, BUN 23, glu 176. Lactic acid 1. Amylase 59, Lipase 200. UA neg LE or nitrite. CT AP confirmed appendicitis. Started on Zosyn. Surgery consulted, underwent appendectomy on 10/13. Post- operatively, he had some right sided chest pain. Troponins trended and ACS was ruled out. CXR did show bilateral pleural effusion for which he received 2 days of IV lasix. He was also noted to have elevating leukocytosis. ID consulted, added Diflucan. 10/20 Patient was seen and examined. Doing well. Tolerating diet well. Echo done yesterday shows EF 55-60% with moderate LVH. CBC and BMP significant for WBC 15.26, Hg 12.5, Hct 38.3.. Antibiotics include Zosyn 3.75g IV TID and Fluconazole [address] AP shows concerns of abscess formation. IR plans on doing aspiration today. General: non toxic, no distress, appears older than stated age Derm: warm, dry Head: atraumatic, normocephalic, symmetric Mouth: no lip lesion, mucus membranes moist Cardiovascular: S1 S2 tachy. No murmur. Lungs: Clear to auscultation bilaterally, no accessory muscle use Abd: BENI drain in tact. + BS. Non tender to palpation Ext: no gross muscle atrophy, no edema, no contractures Neuro: No focal neurologic deficits. Psych: Alert and oriented. Based on my assessment of this patient, this patient meets a high complexity level of care. Sepsis secondary to appendicitis: Status post appendectomy 10/13. Continue Zosyn 3.75g IV TID. ID has added Diflucan 100 mg IV QD. BCx prelim neg so far. Continue regular diet. Zofran 4 mg IV Q6H PRN. Pain management with Dilaudid 0.5-1 mg IV Q3H PRN, L[place] 5-325 mg Q4 PRN, Tylenol 650 mg PO Q6H PRN. DC IVF and encourage hydration by mouth. CT AP concerning for abscess formation. IR consulted for aspiration to be done today. Surgery and ID on board. Acute hypoxic respiratory failure secondary to atelectasis and pleural effusion: Incentive spirometer. CXR with bilateral pleural effusions status post Lasix 40 mg IV x 1 on 10/16 and 10/17. Echo as above. Right sided chest pain: Likely related to GI. Recommend EGD outpatient. Trop negative with EKG showing no ST T wave changes. CXR with bilateral pleural effusions. Acute blood loss anemia which is an expected result of surgery. CKD stage II: At baseline. Alcohol use: Not in withdrawal. CIWA protocol with Ativan PO as needed. Depression: Celexa 40 mg PO QHS. Hypertension: BP 189/88. Lisinopril 20 mg PO QD. Add COreg 3.125 mg PO BID. Obesity: BMI 36. Recommend structured weight loss program. Resolved: Transaminitis, CLYDE, HypoK CODE STATUS: FULL CODE DVT Prophylaxis: Lovenox SQ GI Prophylaxis: Pepcid Designated medical POA if patient is not able to make medical decisions for themselves: I have reviewed the following in home sales consultant notes: Surgery, ID. I have reviewed the results of the following tests: CBC. CT AP I have ordered the following tests: I have discussed the care of this patient with the following independent historian: VONNIE. I have independently interpreted the following test below: I have discussed the management of this patient with the following physician: Letitia CAMPBELL. Objective - Vital Signs Vital signs: Vital Signs Temp 98.1 F 10/20/24 07:26 Pulse 98 10/20/24 07:26 Resp 16 10/20/24 07:26 BP 189/88 10/20/24 07:26 Pulse Ox 95 10/20/24 07:40 FiO2 21 10/18/24 07:53 Intake & Output 10/19/24 10/20/24 10/20/24 18:59 06:59 18:59 Intake Total 1350 Output Total 20 10 Balance -20 1340 Intake: Oral 1350 Output: Drainage 20 10 Right Lower Abdomen 20 10 Other: # Voids 4 5 # Bowel Movements 3 - Labs CBC & Chem 7: 10/20/24 04:39 10/19/24 03:12 Labs: Abnormal Lab Results - Last 24 Hours (Table) 05/01/25 Range/Units 04:39 WBC 15.26 H (4.50-10.00) 10*3/uL Hgb 12.5 L (13.0-17.0) g/dL Hct 38.3 L (39.6-50.0) % RDW 15.1 H (11.5-14.5) % Immature Gran # 1.76 H (0.00-0.04) 10*3/uL Neutrophils # (Manual) 11.90 H (1.3-7.7) k/uL Metamyelocytes # (Man) 0.15 H (0) k/uL
--- NOTE | 2024-10-20 13:29 | P.PN ---
Subjective Progress Note Date: 10/20/24 SURGICAL PROGRESS NOTE CHIEF COMPLAINT: Appendicitis with microperforation HISTORY OF PRESENT ILLNESS: Patient is postop day# 7 status post laparoscopic appendectomy. Awaiting IR evaluation for possible aspiration or placement of drainage tube for abdominal fluid collections. Patient reports his pain is controlled. He is afebrile. He is having bowel movements. White count is down from 16-15. BENI drain 10 mL serous output PHYSICAL EXAM: VITAL SIGNS: Reviewed. GENERAL: Well-developed in no acute distress. HEENT: No sclera icterus. Extraocular movements grossly intact. Moist buccal mucosa. Head is atraumatic, normocephalic. ABDOMEN: Soft. Nondistended. Incision sites clean dry and intact. BENI drain serosanguineous NEUROLOGIC: Alert and oriented. Cranial nerves II through XII grossly intact. ASSESSMENT: 1. Acute appendicitis with microperforation 2. Intra-abdominal fluid collections noted on CT scan PLAN: -Scheduled to be evaluated by IR service for possible aspiration of the intra- abdominal fluid or possible drain placement -Antibiotics per ID service -Continue to monitor BENI drain output -Repeat CBC in a.m. -Increase activity level - DVT prophylaxis Lovenox Physician Real Estate Teacher note has been reviewed by physician. Signing provider agrees with the documented findings, assessment, and plan of care. Objective - Vital Signs Vital signs: Vital Signs Temp 98.1 F 10/20/24 07:26 Pulse 89 10/20/24 13:02 Resp 16 10/20/24 13:02 BP 161/83 10/20/24 13:02 Pulse Ox 94 L 10/20/24 13:02 FiO2 21 10/18/24 07:53 Intake & Output 10/19/24 10/20/24 10/20/24 18:59 06:59 18:59 Intake Total 1350 Output Total 20 10 Balance -20 1340 Intake: Oral 1350 Output: Drainage 20 10 Right Lower Abdomen 20 10 Other: # Voids 4 5 # Bowel Movements 3 - Labs CBC & Chem 7: 10/20/24 04:39 10/19/24 03:12 Labs: Abnormal Lab Results - Last 24 Hours (Table) 10/20/24 Range/Units 04:39 WBC 15.26 H (4.50-10.00) 10*3/uL Hgb 12.5 L (13.0-17.0) g/dL Hct 38.3 L (39.6-50.0) % RDW 15.1 H (11.5-14.5) % Immature Gran # 1.76 H (0.00-0.04) 10*3/uL Neutrophils # (Manual) 11.90 H (1.3-7.7) k/uL Metamyelocytes # (Man) 0.15 H (0) k/uL
--- NOTE | 2024-10-20 14:57 | US ---
EXAMINATION TYPE: US discontinued FNA panel DATE OF EXAM: 10/20/2024 1:46 PM CLINICAL INDICATION:Male, 79 years old with history of Aspiration/possible drainage tube placement; h istory of recent surgery for ruptured appendix with abnormal CT. COMPARISON: CT abdomen and pelvis from yesterday. ATTENDING: Dr. Greene PROCEDURE: Informed consent was obtained for attempted right lower quadrant fluid aspiration and pos sible drainage tube placement. The risks of the procedure were extensively explained including risk o f damage to surrounding bowel with perforation and need for additional procedures. Preprocedure ultra sound shows small amount of fluid in the right lower quadrant just below the muscular layer adjacent to bowel loops. Fluid collection felt smaller from recent CT where it was already small. It is felt t he risks outweigh the benefits for attempted aspiration of a few cc of fluid for diagnostic benefit. This is explained to patient. Patient was agreeable to cancel procedure. [facility]. IMPRESSION: Canceled ultrasound-guided fluid aspiration for diagnostic purposes as risks outweigh becca efits. [facility], , 10/20/2024 2:55 PM
[2024-10-20] MEDS: carvediloL 3.125 MG TAB PO SCH (16:35)
--- NOTE | 2024-10-20 21:45 | P.PN ---
Subjective Progress Note Date: 10/20/24 Principal diagnosis: Reason for follow-up is acute appendicitis and leukocytosis Patient is a 79-year-old male with a past medical history significant for hypertension hyperlipidemia osteoarthritis melanoma, presenting to the hospital with abdominal pain has been diagnosed with acute appendicitis with microperforation status post laparoscopic appendectomy, ID consulted because of persistent elevated white count. On today's evaluation that is 10/20/2024, the patient continues to be afebrile, the patient is on room air and breathing comfortably, the Pt denies having any chest pain or cough, the patient abdominal pain is currently controlled no nausea no vomiting or diarrhea. The patient white count is 15.26 Objective - Vital Signs Vital signs: Vital Signs Temp 98.1 F 10/20/24 15:30 Pulse 86 10/20/24 15:30 Resp 16 10/20/24 15:30 BP 164/85 10/20/24 15:30 Pulse Ox 94 L 10/20/24 15:30 FiO2 21 10/18/24 07:53 Intake & Output 10/19/24 10/20/24 10/20/24 18:59 06:59 18:59 Intake Total 1350 Output Total 20 10 Balance -20 1340 Intake: Oral 1350 Output: Drainage 20 10 Right Lower Abdomen 20 10 Other: # Voids 4 5 # Bowel Movements 3 - Exam GENERAL DESCRIPTION: An elderly male in the chair in no distress RESPIRATORY SYSTEM: Unlabored breathing , decreased breath sounds at bases HEART: S1 S2 regular rate and rhythm , ABDOMEN: Soft , no tenderness EXTREMITIES: No edema feet - Labs CBC & Chem 7: 10/20/24 04:39 10/19/24 03:12 Labs: Abnormal Lab Results - Last 24 Hours (Table) 10/20/24 Range/Units 04:39 WBC 15.26 H (4.50-10.00) 10*3/uL Hgb 12.5 L (13.0-17.0) g/dL Hct 38.3 L (39.6-50.0) % RDW 15.1 H (11.5-14.5) % Immature Gran # 1.76 H (0.00-0.04) 10*3/uL Neutrophils # (Manual) 11.90 H (1.3-7.7) k/uL Metamyelocytes # (Man) 0.15 H (0) k/uL Assessment and Plan (1) Sepsis Current Visit: Yes Status: Acute Code(s): A41.9 - SEPSIS, UNSPECIFIED OR GANISM SNOMED Code(s): 05185250 (2) Perforated appendicitis Current Visit: Yes Status: Acute Code(s): K35.32 - AC APPENDICITIS W PERF, LOC PERITONITIS, & GANGR, W/O ABSCS SNOMED Code(s): 03870500 (3) Peritonitis Current Visit: Yes Status: Acute Code(s): K65.9 - PERITONITIS, UNSPECIFIED SNOMED Code(s): 72087098 Plan: 1patient with admission to hospital with sepsis in this patient did have fever elevated white count meeting criteria for SIRS source is acute appendicitis with microperforation and likely concerning for secondary peritonitis and need to cover for the enteric gram-negative both aerobes and anaerobes with persistent worsening of the white despite being on Zosyn with a question of possible additional pathogen such as Celeste that is not covered with the Zosyn 2-patient did have CT abdominal pelvis concerning for intra-abdominal abscess IR has been consulted for drainage of the abscess fluid should be sent for the culture, currently waiting for procedure 3patient is currently being treated with Zosyn and Diflucan while waiting for drainage and cultures Dictation was produced using [employer] dictation software. please excuse any grammatical, word or spelling errors. Time with Patient: Less than 30
[2024-10-21 07:18] VITALS: PULSE 92; RESP 17
--- NOTE | 2024-10-21 10:34 | P.PN ---
Subjective Progress Note Date: 10/21/24 Principal diagnosis: Reason for follow-up is acute appendicitis and leukocytosis Patient is a 79-year-old male with a past medical history significant for hypertension hyperlipidemia osteoarthritis melanoma, presenting to the hospital with abdominal pain has been diagnosed with acute appendicitis with microperforation status post laparoscopic appendectomy, ID consulted because of persistent elevated white count. On today's evaluation that is 10/21/2024, Patient is afebrile patient is currently on room air and denies having any shortness of breath, the patient den ies any chest pain or cough, the patient denies any nausea vomiting did not have any abdominal pain and no diarrhea. No lab draw today blood culture negative Objective - Vital Signs Vital signs: Vital Signs Temp 98.0 F 10/21/24 07:17 Pulse 92 10/21/24 07:17 Resp 17 10/21/24 07:17 BP 171/90 10/21/24 07:17 Pulse Ox 90 L 10/21/24 07:17 FiO2 21 10/18/24 07:53 Intake & Output 10/20/24 10/21/24 10/21/24 18:59 06:59 18:59 Intake Total 360 Output Total 10 Balance 350 Intake: Oral 360 Output: Drainage 10 Right Lower Abdomen 10 Other: Voiding Method Toilet # Voids 3 3 - Exam GENERAL DESCRIPTION: An elderly male in the chair in no distress RESPIRATORY SYSTEM: Unlabored breathing , decreased breath sounds at bases HEART: S1 S2 regular rate and rhythm , ABDOMEN: Soft , no tenderness EXTREMITIES: No edema feet - Labs CBC & Chem 7: 10/20/24 04:39 10/19/24 03:12 Assessment and Plan (1) Sepsis Current Visit: Yes Status: Acute Code(s): A41.9 - SEPSIS, UNSPECIFIED ORGANISM SNOMED Code(s): 85432239 (2) Perforated appendicitis Current Visit: Yes Status: Acute Code(s): K35.32 - AC APPENDICITIS W PERF, LOC PERITONITIS, & GANGR, W/O ABSCS SNOMED Code(s): 67897404 (3) Peritonitis Current Visit: Yes Status: Acute Code(s): K65.9 - PERITONITIS, UNSPECIFIED SNOMED Code(s): 42015479 Plan: 1patient with admission to hospital with sepsis in this patient did have fever elevated white count meeting criteria for SIRS source is acute appendicitis with microperforation and likely concerning for secondary peritonitis and need to cover for the enteric gram-negative both aerobes and anaerobes with persistent worsening of the white despite being on Zosyn with a question of possible additional pathogen such as Celeste that is not covered with the Zosyn 2-patient did have CT abdominal pelvis concerning for intra-abdominal abscess IR has been consulted for drainage of the abscess, patient subsequently has been evaluated by IR fluid has decreased in size and recommended not to drain 3patient seems to overall clinical improvement and wants to go home surgery has cleared him for discharge recommending a 2-week course of oral Ceftin and Flagyl and Diflucan this was discussed with the surgeon on the phone as well as medical team Dictation was produced using [employer] dictation software. please excuse any grammatical, word or spelling errors. Time with Patient: Less than 30
[2024-10-21 11:01] LABS: Basophils # (M) 0.14 X 10*3/uL (0.00-0.10); Eosinophils # (M) 0.28 X 10*3/uL (0.04-0.35); HCT 36.9 % (39.6-50.0); HGB 11.9 g/dL (13.0-17.0); Lymphocytes # (M) 1.26 X 10*3/uL (0.90-5.00); MCH 28.6 pg (27.0-32.0); MCHC 32.2 g/dL (32.0-37.0); MCV 88.7 FL (80.0-97.0); Mean Platelet Volume 10.5 FL (9.5-12.2); Metamyelocytes % 2 % (0-0); Monocytes # (M) 0.56 X 10*3/uL (0.20-1.00); NRBC Per 100 WBC 0 X 10*3/uL (0.00-0.01); Neutrophils % (M) 82 %; Platelet Count 309 X 10*3/uL (140-440); RBC 4.16 X 10*6/uL (4.40-5.60); RDW 15.3 % (11.5-14.5); WBC 14.03 X 10*3/uL (4.50-10.00)
--- NOTE | 2024-10-21 11:33 | P.DS ---
Providers Date of admission: 10/14/24 07:28 Expected date of discharge: 10/21/24 Attending physician: Ruth Rivera MD Consults: 10/13/24 01:34 Consult Physician Urgent Consulting Provider: Kenny Vinson Consult Reason/Comments: appendicitis Do you want consulting provider notified?: Yes, Notify in am 10/16/24 10:29 Consult Physician Routine Consulting Provider: Jose Hinds Consult Reason/Comments: Leukocytosis, Appendicitis Do you want consulting provider notified?: Yes [facility]: 79 year [facility] M with PMH of HTN, HLD, Depression, h/o melanoma/basal cell skin CA presented to the ED for RLQ abdominal pain for the past 3 days. In the ED he underwent extensive evaluation. BP 166/105, HR 116, T 99.6F, RR 18. CBC, Coag p jose d, CMP significant for WBC 18.1, Na 134, BUN 23, glu 176. Lactic acid 1. Amylase 59, Lipase 200. UA neg LE or nitrite. CT AP confirmed appendicitis. Started on Zosyn. Surgery consulted, underwent appendectomy on 10/13. Post- operatively, he had some right sided chest pain. Troponins trended and ACS was ruled out. Echo showed EF 55-60% with moderate LVH. CXR did show bilateral pleural effusion for which he received 2 days of IV lasix. He was also noted to have elevating leukocytosis. ID consulted, added Diflucan. CT AP showed concerns of abscess formation. IR consulted, fluid collection was too small to be drained. 10/20 Patient was seen and examined. Doing well. Tolerating diet well. CBC significant for WBC 14.03, Hg 11.9, Hct 36.9. Discharge Plan: Plans for discharge home of PO Ceftin, Flagyl and Diflucan. Prescription also sent for Pepcid, [place] and Coreg. Follow up with PCP within 1- 2 days of discharge. Follow up with Surgery within 1 week of discharge. General: non toxic, no distress, appears older than stated age Derm: warm, dry Head: atraumatic, normocephalic, symmetric Mouth: no lip lesion, mucus membranes moist Cardiovascular: S1 S2 tachy. No murmur. Lungs: Clear to auscultation bilaterally, no accessory muscle use Abd: BENI drain in tact. + BS. Non tender to palpation Ext: no gross muscle atrophy, no edema, no contractures Neuro: No focal neurologic deficits. Psych: Alert and oriented. Discharge Diagnosis: Sepsis secondary to appendicitis Acute hypoxic respiratory failure secondary to atelectasis and pleural effusion Right sided chest pain Acute blood loss anemia which is an expected result of surgery CKD stage II Alcohol use Depression Hypertension Obesity Resolved: Transaminitis, CLYDE, HypoK This complex discharge took 35 minutes to complete. Patient Condition at Discharge: Stable Plan - Discharge Summary Discharge Rx Participant: No New Discharge Prescriptions: New carvediloL [Coreg] 3.125 mg PO BID-W/MEALS #60 tab HYDROcodone/APAP 5-325MG [[place] 5-325] 1 each PO Q4HR PRN #18 tab PRN Reason: Moderate To Severe Pain (4-10) Famotidine [Pepcid] 20 mg PO BID #60 tab Acetaminophen Tab [Tylenol] 650 mg PO Q6HR PRN tab PRN Reason: Fever and/ or Pain SCALE 1-3 Continue Citalopram Hydrobromide [CeleXA] 40 mg PO HS Rosuvastatin [Crestor] 10 mg PO DAILY Cyanocobalamin (Vitamin B-12) [Vitamin B-12] 1,000 mcg PO DAILY Ascorbic Acid [Vitamin C] 500 mg PO DAILY Magnesium Oxide [Mag-Ox] 400 mg PO DAILY Benazepril HCl [Lotensin] 20 mg PO DAILY Loratadine [Claritin] 10 mg PO DAILY Cholecalciferol [Vitamin D3 (25 Mcg = 1000 Iu)] 50 mcg PO DAILY Discharge Medication List Citalopram Hydrobromide [CeleXA] 40 mg PO HS 06/23/15 [History] Magnesium Oxide [Mag-Ox] 400 mg PO DAILY 09/04/22 [History] Ascorbic Acid [Vitamin C] 500 mg PO DAILY 10/13/24 [History] Benazepril HCl [Lotensin] 20 mg PO DAILY 10/13/24 [History] Cholecalciferol [Vitamin D3 (25 Mcg = 1000 Iu)] 50 mcg PO DAILY 10/13/24 [History] Cyanocobalamin (Vitamin B-12) [Vitamin B-12] 1,000 mcg PO DAILY 10/13/24 [History] Loratadine [Claritin] 10 mg PO DAILY 10/13/24 [History] Rosuvastatin [Crestor] 10 mg PO DAILY 10/13/24 [History] Acetaminophen Tab [Tylenol] 650 mg PO Q6HR PRN tab 10/21/24 [Rx] Famotidine [Pepcid] 20 mg PO BID #60 tab 10/21/24 [Rx] HYDROcodone/APAP 5-325MG [[place] 5-325] 1 each PO Q4HR PRN #18 tab 10/21/24 [Rx] carvediloL [Coreg] 3.125 mg PO BID-W/MEALS #60 tab 10/21/24 [Rx] Follow up Appointment(s)/Referral(s): Mahamed Hunter MD [Primary Care Provider] - 1-2 days [facility], [REFERRING] - 1 Week [facility] [NON-STAFF] - 1 Week Kenny Vinson MD [STAFF PHYSICIAN] - 1 Week
--- NOTE | 2024-10-21 12:32 | P.PN ---
Subjective Progress Note Date: 10/21/24 SURGICAL PROGRESS NOTE CHIEF COMPLAINT: Appendicitis with microperforation HISTORY OF PRESENT ILLNESS: Patient is postop day# 8 status post laparoscopic appendectomy. Patient reports his pain is controlled. Tolerating diet. He is afebrile. He has been up and ambulating. WBC is trending down from 15-14. IR service evaluated patient regarding the intra-abdominal fluid collections. They are unable to aspirate the fluid. PHYSICAL EXAM: VITAL SIGNS: Reviewed. GENERAL: Well-developed in no acute distress. HEENT: No sclera icterus. Extraocular movements grossly intact. Moist buccal mucosa. Head is atraumatic, normocephalic. ABDOMEN: Soft. Nondistended. Incision sites clean dry and intact. BENI drain serosanguineous NEUROLOGIC: Alert and oriented. Cranial nerves II through XII grossly intact. ASSESSMENT: 1. Acute appendicitis with microperforation 2. Intra-abdominal fluid collections noted on CT scan unable to drain/aspirate per IR service. PLAN: -Patient can be discharged from surgical standpoint -Discussed case with infectious disease. Dr. Hinds is recommending Ceftin, Flagyl, Diflucan for 14 days. -Discharged with BENI drain -Recommend follow-up with infectious disease in 1 week -Patient to follow-up with Dr. Vinson in 10 days. - DVT prophylaxis Lovenox Physician Medical Billing Specialist note has been reviewed by physician. Signing provider agrees with the documented findings, assessment, and plan of care. Objective - Vital Signs Vital signs: Vital Signs Temp 98.0 F 10/21/24 07:17 Pulse 92 10/21/24 07:17 Resp 17 10/21/24 07:17 BP 171/90 10/21/24 07:17 Pulse Ox 90 L 10/21/24 07:17 FiO2 21 10/18/24 07:53 Intake & Output 10/20/24 10/21/24 10/21/24 18:59 06:59 18:59 Intake Total 360 Output Total 10 Balance 350 Intake: Oral 360 Output: Drainage 10 Right Lower Abdomen 10 Other: Voiding Method Toilet # Voids 3 3 - Labs CBC & Chem 7: 10/21/24 03:13 10/19/24 03:12 Labs: Abnormal Lab Results - Last 24 Hours (Table) 10/21/24 Range/Units 03:13 WBC 14.03 H (4.50-10.00) X 10*3/uL RBC 4.16 L (4.40-5.60) X 10*6/uL Hgb 11.9 L (13.0-17.0) g/dL Hct 36.9 L (39.6-50.0) % RDW 15.3 H (11.5-14.5) % Neutrophils # (Manual) 11.50 H (1.80-7.70) X 10*3/uL Basophils # (Manual) 0.14 H (0.00-0.10) X 10*3/uL
[2024-10-21 14:11] VITALS: BP 154/78; TEMP 98.6
[2024-10-21 14:49] VITALS: BMI 35.9
--- NOTE | 2024-10-24 11:37 | CDI ---
Documentation Clarification Form Date: 10/24/2024 11:15:57 AM From: Myriam Grayson Phone: Admit Date: 10/14/2024 07:28:00 AM Patient Name: Jason Flores Visit Number: [id number] Discharge Date: 10/21/2024 03:45:00 PM ATTENTION: The Clinical Documentation Specialists (CDI) and [facility] Coding Staff appreciate your assistance in clarifying documentation. Please respond to the clarification below the line at the bottom and electronically sign. The CDI & [facility] Coding staff will review the response and follow-up if needed. Please note: Queries are made part of the Legal Health Record. If you have any questions, please contact the author of this message via ITS. Doctor/Provider: April Lynn Hypotension is documented in the 10/14 Progress Note. Additional clarification regarding this diagnosis is requested. History/Risk Factors: 79yo M, Gram- sepsis, appendicitis with micro perforation,ABLA, ETOH use, tachycardia, CKD, HTN, CLYDE, atelectasis wpleural effusion, depression, obesity II, transaminitis,hypoK Clinical Indicators: 10/13/2503/23/25 22:02 23:17 T 99.6 F WV 16 RR 18 BP 166/105 120/76 10/13/24 T 97.2 F 12:02 WV 114 H RR 16 BP 91/58 POx 94 10/14/24 T 98.6 WV 98 RR 16 BP 110/64 POx 94 Treatment: Patient did receive a liter bolus yesterday for his tachycardiaandhypotension. Heart rate and BP have improved. Denies any nauseaorvomiting. WBC is 17 Hgb 12 platelets 188.[id number] mL serosanguinous output. Can the hypotension be further specified? [ ] Hypotension, unspecified [ ] Hypotension due to Severe Sepsis [ ] Present on Admission [ ] Not Present on Admission [ ] PostopHypotension [ x ] Expected [ ] Complication [ ] Hypotension is not clinically significant [ ] Other Condition, please specify [ ] Unable to determine (Template Last Revised: August 2020) MTDD
== END 2024-10-21 15:45 | disposition home health service (06) | DRG 853 ==
LOC: EC 21:57 → 4SSUR 10-13 02:32 → OBSVTOIN 10-14 07:28 → 4SSUR 10-21 08:24
PROVIDERS: ADMIT Internal Medicine; ATTEND Internal Medicine
PROC: 0DTJ4ZZ Resection of Appendix, Percutaneous Endoscopic Approach (ICD-10-PCS; principal; 2024-10-13 07:30)
DX: A41.50 Gram-negative sepsis, unspecified (principal); K35.32 Acute appendicitis with perforation, localized peritonitis, and gangrene, without abscess; J90 Pleural effusion, not elsewhere classified; R18.8 Other ascites; D62 Acute posthemorrhagic anemia; K56.7 Ileus, unspecified; E66.812 Obesity, class 2; I12.9 Hypertensive chronic kidney disease with stage 1 through stage 4 chronic kidney disease, or unspecified chronic kidney disease; F32.9 Major depressive disorder, single episode, unspecified; N17.9 Acute kidney failure, unspecified; J98.11 Atelectasis; K66.0 Peritoneal adhesions (postprocedural) (postinfection); R74.01 Elevation of levels of liver transaminase levels; F10.90 Alcohol use, unspecified, uncomplicated; E87.6 Hypokalemia; K42.9 Umbilical hernia without obstruction or gangrene; E78.5 Hyperlipidemia, unspecified; N18.2 Chronic kidney disease, stage 2 (mild); R33.9 Retention of urine, unspecified; R00.0 Tachycardia, unspecified; I95.9 Hypotension, unspecified; Z68.36 Body mass index [BMI] 36.0-36.9, adult; Z87.891 Personal history of nicotine dependence; Z79.899 Other long term (current) drug therapy; Z85.820 Personal history of malignant melanoma of skin; Z85.828 Personal history of other malignant neoplasm of skin; Z96.653 Presence of artificial knee joint, bilateral
CPT/HCPCS: 36415; 71045; 74177; 76536; 80048; 80053; 81003; 82150; 83605; 83690; 83735; 84484; 85025; 85027; 85610; 86140; 87040; 87324; 88304; 93005; 93306; 94760; 96361; 96374; 99285

== ENCOUNTER → 2024-11-10 | Outpatient (CLI) | payer MEDICARE ==
[2024-11-10 09:57] LABS: African American GFR (CKD) 77 (>60 ml/min/1.73 sqM); Blood Urea Nitrogen 28 mg/dL (9-20); Non-African American GFR(CKD) 67 (>60 ml/min/1.73 sqM)
--- NOTE | 2024-11-10 12:26 | CT ---
EXAMINATION TYPE: CT abdomen pelvis w con DATE OF EXAM: 11/10/2024 COMPARISON: Prior CT October 19, 2024 CLINICAL INDICATION: Male, 79 years old with history of K65.1 PERITONEAL ABSCESS, LOWER AND RIGHT BETTY ED ABDOMINAL PAIN, POSSIBLE ABSCESS, TECHNIQUE: CT scan of the abdomen and pelvis is performed with IV Contrast, patient injected with 100 ml mL of I sovue 300., (none if empty) Oral contrast used: with Oral Contrast (none if empty) CT DLP: 1822 mGycm, Automated exposure control for dose reduction was used. FINDINGS: LUNG BASES: Trace right-sided pleural effusion diminished in size from prior. Persistent posterior ri ght basilar consolidation/atelectasis. Coronary artery calcification is redemonstrated. LIVER/GB: Cholecystectomy clips again seen. Liver remains heterogeneously hypodense with posterior ri ght hepatic lobe calcification redemonstrated PANCREAS: No significant abnormality is seen. SPLEEN: A few punctate calcifications throughout the spleen are redemonstrated. ADRENALS: No significant abnormality is seen. KIDNEYS: Some cortical volume loss bilaterally redemonstrated. No hydronephrosis seen bilaterally. BOWEL: Oral contrast extends to the rectum. No abnormal small or large bowel dilatation. Appendix is surgically absent. There is persistent irregular fat stranding and ill-defined fluid in the right low er quadrant. Stable tiny fluid collection measuring approximate 3.0 x 1.7 cm axial image 60 is noted (differential is enteric contrast). There may be retained appendicolith on coronal image 57. This is inferior to the terminal ileum. Fistulous tracts to the level are suspected. PROSTATE/SEMINAL VESICLES: Stable mildly enlarged prostate. LYMPH NODES: No greater than 1cm abdominal or pelvic lymph nodes are appreciated. OSSEOUS STRUCTURES: Metallic hardware from right hip arthroplasty is redemonstrated causing streak ar tifact somewhat limiting evaluation of pelvic structures. OTHER: Persisting moderate-sized periumbilical hernia containing fat and mesenteric vessels. Fat cont aining bilateral inguinal hernias are redemonstrated. Percutaneous drain removed in the interval. IMPRESSION: Persistent inflammatory change at base of cecum. Suspect persistent retained appendicolit h and sinus tracts as well. Stable tiny focal fluid collection right lower quadrant. No new focal flu id collections are present. [facility], , 11/10/2024 12:23 PM
== END | disposition home or self-care (01) ==
LOC: RADCTMAIN 09:21
PROVIDERS: ATTEND Internal Medicine Infectious Disease
DX: K65.1 Peritoneal abscess (principal); K52.89 Other specified noninfective gastroenteritis and colitis
CPT/HCPCS: 82565; 84520; 74177; 36415; Q9967